=== PATIENT | female | born 1990 | race Caucasian/White ===

== ENCOUNTER 2017-07-07 10:01 | Emergency (ER) | payer OTHER ==
[2017-07-07 12:43] VITALS: BP 142/90
--- NOTE | 2017-07-07 15:27 | UC ---
Vernon Sinha Angela, scribed for Nette Miller DO on 07/07/17 at 1211 . General HPI - HPI Summary HPI Summary: This pt is a 26 y/o female presenting to [facility] c/o cough, rhinorrhea, sore throat , sinus pressure x4 days. Pt reports a productive cough with green sputum, non- bloody. She states she normally uses an inhaler when she is sick. Pt additionally c/o chest pain only with cough, ear feeling full. Pt denies nausea , vomiting, diarrhea, fever, chills, dysuria, urinary symptoms. She notes 1.5 months ago she had bronchitis and pneumonia, she was given antibiotics. Pt was not able to finish her antibiotics as it caused her joint pain. Pt also reports that she has left knee pain s/p fall down the stairs 1 month ago. She notes she fell down 4 steps down and believes her knee twisted. Pt went to [facility] and was told to go to physical therapy but has not been able to go yet. She states she didn't have any XRs done. Pt notes her left knee has become more sore since then. She feels like she has to "crack it and then it pops." Her pain is aggravated when bending her knee, specially while going up and down the stairs. She reports it is more painful to sit still. Pt has felt her leg stable and not giving out. She is able to ambulate with this left leg. - History of Current Complaint Chief Complaint: UCRespiratory Stated Complaint: CHEST CONGESTION/COUGH/L KNEE PAIN Time Seen by Provider: 07/07/17 11:51 Hx Obtained From: Patient Hx Last Menstrual Period: 05/29 Onset/Duration: Lasting Days, Still Present Timing: Constant Pain Location at: left knee Associated Signs & Symptoms: Positive: Cough, Chest Pain - only with cough, SOB , Other - POS: stuffy nose, rhinorrhea, sore throat, sinus pressure, ear fullness, left knee pain. NEG: urinary symptoms. Negative: Abdominal Pain, Diarrhea, Dysuria, Fever, Nausea, Vomiting - Allergy/Home Medications Allergies/Adverse Reactions: Allergies Allergy/AdvReac Type Severity Reaction Status Date / Time No Known Allergies Allergy Verified 07/07/17 10:12 PMH/Surg Hx/FS Hx/Imm Hx Endocrine History: Hypothyroidism Cardiovascular History: Hypertension - Surgical History Surgical History: Yes Surgery Procedure, Year, and Place: right wrist. appendectomy. gall bladder - Family History Known Family History: Positive: Hypertension, Diabetes - Social History Alcohol Use: None Substance Use Type: None Smoking Status (MU): Never Smoked Tobacco Have You Smoked in the Last Year: No - Immunization History Most Recent Influenza Vaccination: 2014 Most Recent Tetanus Shot: 06/03/14 Most Recent Pneumonia Vaccination: na Review of Systems Constitutional: Negative Skin: Negative Eyes: Negative ENT: Sore Throat, Nasal Discharge, Sinus Congestion, Other - stuffy nose, sinus pressure, ear fullness Respiratory: Cough Cardiovascular: Chest Pain - only with cough Gastrointestinal: Negative Genitourinary: Negative Motor: Decreased ROM - at left knee Neurovascular: Negative Musculoskeletal: Other: - left knee pain Neurological: Negative Psychological: Negative All Other Systems Reviewed And Are Negative: Yes Physical Exam Triage Information Reviewed: Yes Appearance: Well-Appearing, No Pain Distress, Well-Nourished Vital Signs: Initial Vital Signs Temp 98.2 F 07/07/17 10:14 Pulse 88 07/07/17 10:14 Resp 22 07/07/17 10:14 BP 142/105 07/07/17 10:14 Pulse Ox 99 07/07/17 10:14 Vital Signs Reviewed: Yes Eyes: Positive: Conjunctiva Clear. Negative: Discharge ENT: Positive: Hearing grossly normal, TMs normal. Negative: Tonsillar swelling , Tonsillar exudate, Trismus, Muffled voice, Hoarse voice Neck exam: Normal Neck: Positive: Supple Respiratory: Positive: Lungs clear, Normal breath sounds, No respiratory distress, No accessory muscle use, Other: - lung sounds are symmetrical. Negative: Wheezing Cardiovascular: Positive: RRR, No Murmur Musculoskeletal: Positive: Other: - LLE: mild swelling on the lateral joint line of the left knee. Inspection otherwise normal. No redness, swelling, calor , or bruising. Tenderness to palpation over the lateral joint line. Less tender to palpation over the medial patellar border. Pain with lateral stress. Positive Ana test. No laxity notes of the ACL or PCL. Neurological: Positive: Alert, Muscle Tone Normal Psychological Exam: Normal Psychological: Positive: Age Appropriate Behavior Skin Exam: Other - warm, dry Skin: Positive: Other - Acanthosis nigricans noted in the pt's neck. Course/Dx - Course Course Of Treatment: Medications reviewed this visit. High blood pressure noted with diagnosis of HTN. Pt was given a referral to orthopedics to further evaluate her injury. - Differential Dx - Multi-Symptom Provider Diagnoses: Sinusitis. Bronchospasm. Meniscus tear. Elevated blood pressure with diagnosis of HTN Discharge - Discharge Plan Condition: Stable Disposition: HOME Prescriptions: Albuterol HFA INHALER* [Ventolin HFA Inhaler*] 2 puff INH Q4H PRN #1 mdi PRN Reason: Sob/Wheezing Amoxicillin/Clavulanate TAB* [Augmentin TAB 875*] 875 mg PO BID #20 tab Benzonatate CAP* [Tessalon 100 MG CAP*] 100 mg PO TID PRN #30 cap PRN Reason: Cough guaiFENesin ER TAB [Mucinex*] 600 mg PO BID PRN #1 box PRN Reason: Cough Guaifenesin-Codeine [Guaiatussin AC] 5 - 10 ml PO BEDTIME PRN #100 ml MDD 10ML PRN Reason: Cough Patient Education Materials: Sinusitis (ED), Bronchospasm (ED), Meniscus Tear ( ED) Referrals: Fabián Melton MD [Primary Care Provider] - 2 Weeks Additional Instructions: TRY USING THE NETTI POT IN THE MORNINGS DISCUSSED. ALWAYS USE CLEAN WATER. POSTURE IS AN IMPORTANT FACTOR IN SINUS DRAINAGE. MOVE YOUR NECK and BREATHE. 1. When you find yourself feeling congested, check your posture. 2. Close your mouth. Try the head lift and breathe. 3. Then move your neck and breathe. INHALED BRONCHODILATORS: You have received a prescription for an inhaled bronchodilator -- a medication which stimulates the airways in the lung to dilate. This improves the flow of air in asthma, bronchitis, and emphysema. These medicines have some similarity to adrenaline, and can cause similar side effects: shakiness, racing heart, and a sense of nervousness. These side effects decrease with time. Contact your doctor if these side effects are severe. Do not over-use the medicine. Too-frequent use of the inhaler may make it ineffective. Call your doctor if the inhaler is not controlling your symptoms at the prescribed doses. COUGH-SUPPRESSANT & EXPECTORANT MEDICATION: You are to use a cough medication as needed for relief of symptoms. This medicine is a combination of an expectorant (to make the mucous thinner and more easily "coughed up") and a cough suppressant (to reduce the frequency of coughing). The cough-suppressant medicine is related to narcotics. You may experience mild nausea and sleepiness. Some patients who are very sensitive to narcotics may have stomach pain from this medicine. Taking the medicine with food reduces these side effects. Do not drive or work with machinery until you know how this medicine affects you. The expectorant should have no side effects. Iodine-containing expectorants (such as organidin) should not be taken by persons with active thyroid disease unless approved by your doctor. Call the doctor if you develop shortness of breath, hives, rash, itching, lightheadedness, or severe nausea and vomiting. EXPECTORANT MEDICATION: WE SENT IN A SCRIPT FOR MUCINEX SO THAT IT IS EASIER FOR YOU TO PICK THE RIGHT MED AT THE PHARMACY. HOWEVER, YOU CAN ALSO GO TO THE [employer] STORE AND BUY PLAIN GUAIFENESIN WITHOU BINDERS OR FILLERS. An expectorant medicine has been prescribed. This type of drug makes mucous thinner, helping the sinuses, nose, and bronchial tubes to remain free of pus and mucous. Expectorants make a cough less severe and more comfortable, and help infected sinuses drain. In general, antihistamines defeat the purpose of the expectorant by making mucous thicker. They should be avoided unless specifically recommended by your physician. TESSALON PERLES: You have received a prescription for Tessalon Perles (benzonatate). This is a non-narcotic medicine for relief of cough. It usually works in about 15- 20 minutes and lasts around four hours. Tessalon Perles should be swallowed. They should not be chewed or dissolved in the mouth (this can produce temporary numbing of the mouth and choking can occur). If you develop any adverse effects such as wheezing, shortness of breath, hives, rash, itching, or lightheadedness, please return at once. ANTIBIOTICS ARE NOT CURRENTLY INDICATED FOR YOUR CONDITION. HOWEVER, IF YOUR SYMPTOMS WORSEN OR PERSIST FOR OVER THE NEXT 3-5 DAYS, YOU CAN TAKE THE FOLLOWING MEDICATION: AUGMENTIN: Augmentin is a mixture of amoxicillin and clavulanate. Amoxicillin is a member of the penicillin family. It covers the germs likely to cause ear, bronchial, and urinary infections better than plain penicillin. The addition of clavulanate allows it to cover staph infections of the skin, as well as resistant cases of ear and sinus infections. Your physician has chosen Augmentin for you because of the special nature of your situation. Augmentin is best taken with meals. Nausea after taking the medication is rare, but can occur. Diarrhea can occur, particularly in small children. Vaginal yeast infections, and oral thrush in infants are also common. Contact your physician if these problems occur. Allergy to penicillins is common. If you have had an allergic reaction to any drug of the penicillin family, you should never take any other penicillin. Notify your doctor at once if you develop hives, shortness of breath, swelling, or faintness. ANYTIME YOU TAKE AN ANTIBIOTIC, IT IS IMPORTANT TO REPLENISH THE BODY'S SUPPLY OF "GOOD BACTERIA." YOU CAN GET GOOD BACTERIA FROM HIGH QUALITY CULTURED FOODS SUCH LOCAL YOGURT, SOUR KRAUT, SHELBY LAVELL, NATURALLY FERMENTED PICKLES AND PROBIOTIC DRINKS. YOU CAN ALSO GET GOOD BACTERIA FROM A PROBIOTIC SUPPLEMENT. Your history and exam is suspicous for possible internal derrangement of the knee. So, you will need follow up with an orthopedic provider to further evaluate your injury. WE HAVE GIVEN YOU A REFERRAL TO ORTHOPEDIST. TRY TO FIND A PHYSICAL THERAPIST WHO CAN SEE YOU AFTER YOU FINISH WORK - CALL AROUND. YOU WOULD LIKELY BENEFIT FROM OSTEOPATHIC MANIPULATION. WE RECOMMEND THAT YOU FIND AN OSTEOPATHIC PHYSICIAN IN YOUR AREA WHO DOES LYMPHATIC, MYOFACIAL AND VISCERAL WORK ALSO, YOUR PHYSICAL EXAM REVEALED ACANTHOSIS NIGRICANS. THIS CAN BE A SIGN OF INSULIN RESISTANCE. PLEASE FOLLOW UP ON THIS WELL YOUR BLOOD PRESSURE WITH YOUR PCP. Your blood pressure was elevated at this visit, 142/105. Please follow up with your primary care provider. The documentation as recorded by the Vernon collins Angela accurately reflects the service I personally performed and the decisions made by me, Nette Miller DO.
--- NOTE | 2017-07-07 15:30 | UC ---
Progress - Progress Note Progress Note: forgot to give pt ortho referral. called pt and gave her dr navas's number
== END 2017-07-07 12:45 | disposition home or self-care (01) ==
LOC: UCEAST 10:01
DX: J32.9 Chronic sinusitis, unspecified (principal); J98.01 Acute bronchospasm; S83.207A Unspecified tear of unspecified meniscus, current injury, left knee, initial encounter; W10.9XXA Fall (on) (from) unspecified stairs and steps, initial encounter; Y93.9 Activity, unspecified; Y92.9 Unspecified place or not applicable; Y99.9 Unspecified external cause status; I10 Essential (primary) hypertension
CPT/HCPCS: 99212; G0463

== ENCOUNTER 2017-12-16 20:34 | Emergency (ER) | payer MEDICAID, OTHER ==
[2017-12-16 21:37] VITALS: BP 146/102
--- NOTE | 2017-12-16 22:05 | UC ---
Rafael Sinha Gabriel scribed for Enid Perez MD on 12/16/17 at 2145 . General HPI - HPI Summary HPI Summary: This patient is a 27 year old F presenting to [facility] with a chief complaint of bilateral LE edema that began on 12-13-17. The patient rates the pain 7/10 in severity. Patient denies SOB, urinary symptoms, and increased sodium intake. Pt has no additional complaints at this time. The patient states the last time this happened she was and that there is a chance she is now. LNMP was over a month ago but she is unsure of the last date. She states she has PCOS and cannot get . She has not taken her PCOS medication in a long time. She also has a history of hypthyroidism, and uses her levothyroxine irregularly. - History of Current Complaint Chief Complaint: UCLowerExtremity Stated Complaint: SWOLLEN FEET Time Seen by Provider: 12/16/17 20:54 Hx Obtained From: Patient Hx Last Menstrual Period: unknown d/t pcos Onset/Duration: Still Present Onset Severity: Moderate Current Severity: Moderate Pain Intensity: 7 Associated Signs & Symptoms: Positive: Other - LE edema - Allergy/Home Medications Allergies/Adverse Reactions: Allergies Allergy/AdvReac Type Severity Reaction Status Date / Time No Known Allergies Allergy Verified 12/16/17 20:48 Home Medications: Home Medications metFORMIN* [Glucophage 500 MG TAB *] 500 mg PO BID 12/16/17 [History Confirmed 12/16/17] PMH/Surg Hx/FS Hx/Imm Hx Previously Healthy: No - obese, hx of pre-eclamptic toxemia Endocrine History: Hypothyroidism GI/ History: Other Other GI/ History: PCOS Psychological History: Anxiety, Depression - Surgical History Surgical History: Yes Surgery Procedure, Year, and Place: right wrist. appendectomy. gall bladder - Family History Known Family History: Positive: Cardiac Disease, Hypertension, Diabetes - Social History Lives: With Family Alcohol Use: None Substance Use Type: None Smoking Status (MU): Never Smoked Tobacco Have You Smoked in the Last Year: No - Immunization History Most Recent Influenza Vaccination: 2014 Most Recent Tetanus Shot: 06/03/14 Most Recent Pneumonia Vaccination: na Review of Systems Constitutional: Negative Skin: Negative Eyes: Negative ENT: Negative Respiratory: Negative - SOB Cardiovascular: Negative Gastrointestinal: Negative Genitourinary: Negative Motor: Negative Neurovascular: Negative Musculoskeletal: Edema - bilateral LE Neurological: Negative Psychological: Negative Is Patient Immunocompromised?: No All Other Systems Reviewed And Are Negative: Yes Physical Exam Triage Information Reviewed: Yes Appearance: Well-Appearing, Obese Vital Signs: Initial Vital Signs Temp 99.7 F 12/16/17 20:43 Pulse 103 12/16/17 20:43 Resp 18 12/16/17 20:43 BP 183/120 12/16/17 20:43 Pulse Ox 98 12/16/17 20:43 Eye Exam: Normal ENT: Positive: Pharynx normal Neck exam: Normal Respiratory: Positive: Lungs clear, Normal breath sounds Cardiovascular: Positive: RRR, No Murmur Musculoskeletal: Positive: Edema @ - mild pitting edema feet and ankles. Neurological Exam: Normal Psychological Exam: Normal Diagnostics - Laboratory Diagnostic Studies Completed/Ordered: labs drawn to assess TSH and chemistries, given irregular use of medications. Course/Dx - Course Course Of Treatment: Patient is requesting to have her vitamin D levels checked. I informed her there is a significant change it will not be covered by her insurance but she would still like it done. BP noted and advised to follow up with PCP. - Differential Dx - Multi-Symptom Provider Diagnoses: bilateral edema, most likely dependency edema. Elevated blood pressure without a previous diagnoses of hypertension Discharge - Sign-Out/Discharge Documenting (check all that apply): Discharge/Admit/Transfer - Discharge Plan Condition: Stable Disposition: HOME Patient Education Materials: Leg Edema (ED) Referrals: Fabián Melton MD [Primary Care Provider] - Additional Instructions: Lab work will be reported tomorrow. I suggest that you send a copy to Dr. Melton. Your urine test is negative. Given the irregular use of levothyroxine, the most likely potential causes of your leg swelling are either low thyroid function or dependency edema. Your blood pressure was elevated during today's visit, 146/102. Please follow up with your primary care provider in 1-2 weeks. - Billing Disposition and Condition Condition: STABLE Disposition: HOME The documentation as recorded by the Rafael collins Gabriel accurately reflects the service I personally performed and the decisions made by me, Enid Perez MD.
[2017-12-17 11:01] LABS: ABS Basophils 0.1 10^3/ul (0-0.2); ABS Eosinophils 0.2 10^3/ul (0-0.6); ABS Monocytes 0.6 10^3/ul (0-0.8); ABS Nucleated RBC 0 10^3/ul; Eosinophil % 1.7 % (0-6); Hematocrit 44 % (35-47); Hemoglobin 14.4 g/dl (12.0-16.0); Lymphocyte % 30.7 % (25-47); Mean Corpuscular HGB Conc 33 g/dl (31-36); Mean Corpuscular Hemoglobin 28 pg (27-31); Mean Corpuscular Volume 84 fL (80-97); Mean Platelet Volume 8.8 um3 (7.4-10.4); Nucleated Red Blood Cells % 0.2; Platelet Count 252 10^3/ul (150-450); Red Blood Count 5.22 10^6/ul (4.0-5.4); Red Cell Distribution Width 15 % (10.5-15); White Blood Count 9.9 10^3/ul (3.5-10.8)
--- NOTE | 2017-12-17 17:02 | UC ---
- Progress Note Progress Note: 12/17/2016 CMP pending, TSH: 6.66 elevated Pt w/ PMHX of Hypothyroidism and no compliant w/ her Synthroid medication. CBC: WNL Please await final report and notify Pt of lab results. Pt need F/u w/ her PCP for further management on her Thyroid levels Sharla Rossi PA-C Discharge - Sign-Out/Discharge Documenting (check all that apply): Discharge/Admit/Transfer - D/C home - Discharge Plan Condition: Stable Disposition: HOME Patient Education Materials: Leg Edema (ED) Referrals: Fabián Melton MD [Primary Care Provider] - Additional Instructions: Lab work will be reported tomorrow. I suggest that you send a copy to Dr. Melton. Your urine test is negative. Given the irregular use of levothyroxine, the most likely potential causes of your leg swelling are either low thyroid function or dependency edema. Your blood pressure was elevated during today's visit, 146/102. Please follow up with your primary care provider in 1-2 weeks. - Billing Disposition and Condition Condition: STABLE Disposition: HOME
[2017-12-17 17:30] LABS: EGFR Non-African American 94.9 (>60)
--- NOTE | 2017-12-17 18:01 | UC ---
- Progress Note Progress Note: 12/17/2017 CMP: WNL No change Sharla Alcantara PA-C Discharge - Sign-Out/Discharge Documenting (check all that apply): Discharge/Admit/Transfer - D/C home - Discharge Plan Condition: Stable Disposition: HOME Patient Education Materials: Leg Edema (ED) Referrals: Fabián Melton MD [Primary Care Provider] - Additional Instructions: Lab work will be reported tomorrow. I suggest that you send a copy to Dr. Melton. Your urine test is negative. Given the irregular use of levothyroxine, the most likely potential causes of your leg swelling are either low thyroid function or dependency edema. Your blood pressure was elevated during today's visit, 146/102. Please follow up with your primary care provider in 1-2 weeks. - Billing Disposition and Condition Condition: STABLE Disposition: HOME
== END 2017-12-16 22:15 | disposition home or self-care (01) ==
LOC: UCEAST 20:34
DX: R60.0 Localized edema (principal); R03.0 Elevated blood-pressure reading, without diagnosis of hypertension; Z32.02 Encounter for pregnancy test, result negative; E03.9 Hypothyroidism, unspecified; E28.2 Polycystic ovarian syndrome; F41.9 Anxiety disorder, unspecified; F32.9 Major depressive disorder, single episode, unspecified
CPT/HCPCS: 36415; 80053; 82306; 84443; 84702; 85025; 99211; G0463

== ENCOUNTER 2018-01-05 13:41 | Emergency (ER) | payer MEDICAID, OTHER ==
[2018-01-05 14:39] LABS: ABS Basophils 0.1 10^3/ul (0-0.2); ABS Eosinophils 0.1 10^3/ul (0-0.6); ABS Lymphocytes 2.6 10^3/ul (1.0-4.8); ABS Monocytes 0.7 10^3/ul (0-0.8); ABS Neutrophils 7.7 10^3/ul (1.5-7.7); ABS Nucleated RBC 0 10^3/ul; Eosinophil % 1.3 % (0-6); Hematocrit 44 % (35-47); Hemoglobin 14.6 g/dl (12.0-16.0); Lymphocyte % 23.4 % (25-47); Mean Corpuscular HGB Conc 33 g/dl (31-36); Mean Corpuscular Hemoglobin 28 pg (27-31); Mean Corpuscular Volume 83 fL (80-97); Mean Platelet Volume 7.2 um3 (7.4-10.4); Nucleated Red Blood Cells % 0; Platelet Count 267 10^3/ul (150-450); Red Cell Distribution Width 15 % (10.5-15); White Blood Count 11.3 10^3/ul (3.5-10.8)
--- NOTE | 2018-01-05 15:59 | RAD ---
HISTORY: Right lower extremity swelling and pain COMPARISONS: None relevant TECHNIQUE: Multiple transverse and longitudinal ultrasound images were obtained of the right lower extremity from the level of the common femoral vein inferiorly through to the infrapopliteal veins using grayscale, color Doppler, and spectral Doppler imaging with and without compression and with augmentation. Comparison images were obtained of the contralateral common femoral vein. FINDINGS: VEINS: The venous system of the right lower extremity is compressible throughout its course, with normal flow on color Doppler imaging and normal response to augmentation on spectral Doppler imaging. SOFT TISSUES: Unremarkable. OTHER FINDINGS: None. IMPRESSION: NO RIGHT LOWER EXTREMITY DEEP VEIN THROMBOSIS
[2018-01-05 16:20] LABS: EGFR Non-African American 94.9 (>60)
[2018-01-05] MEDS ORDERED: Metoprolol Tartrate TAB* 50 mg PO ONE (16:55)
--- NOTE | 2018-01-05 17:00 | ED ---
Chandler Sinha Natalie, scribed for Leighton Murguia MD on 01/05/18 at 1442 . Lower Extremity - HPI Summary HPI Summary: The patient is a 27 y/o F presenting to the ED c/o bilateral swelling of legs and feet starting November with gradual worsening with right knee pain and right foot cramping onset 4 days ago. The swelling and pain is more prominent in the right leg, and her symptoms worsen at night. The pain is rated 6/10 in severity. She denies SOB. She has been drinking a gallon of water a day. The patient has been taking Triamterine for past similar episodes. She does not take oral contraceptives, and she does not smoke. - History of Current Complaint Chief Complaint: EDSoftTissueLowExtr Stated Complaint: RT LEG PAIN & SWELLING Time Seen by Provider: 01/05/18 14:09 Hx Obtained From: Patient Hx Last Menstrual Period: unknown d/t pcos Mechanism Of Injury: Unknown Onset of Pain: Days Onset/Duration: Days Severity Initially: Moderate Severity Currently: Moderate Pain Intensity: 6 Pain Scale Used: 0-10 Numeric Timing: Constant, Lasting Days Location: Other - bilateral legs Associated Signs And Symptoms: Positive: Swelling - bilateral feet and legs, Other Aggravating Factor(s): Nothing Alleviating Factor(s): Nothing - Allergies/Home Medications Allergies/Adverse Reactions: Allergies Allergy/AdvReac Type Severity Reaction Status Date / Time No Known Allergies Allergy Verified 01/05/18 13:51 Home Medications: Home Medications Levothyroxine TAB* [Synthroid TAB*] 175 mcg PO QAM 01/05/18 [History Confirmed 01/05/18] Triamterene/HCTZ 37.5-25 MG* [Dyazide CAP*] 1 cap PO QAM 01/05/18 [History Confirmed 01/05/18] PMH/Surg Hx/FS Hx/Imm Hx Endocrine/Hematology History: Reports: Hx Thyroid Disease - hypo Denies: Hx Diabetes Cardiovascular History: Denies: Hx Congestive Heart Failure, Hx Hypertension, Hx Pacemaker/ICD, Other Cardiovascular Problems/Disorders Respiratory History: Denies: Hx Asthma, Hx Chronic Obstructive Pulmonary Disease (COPD), Other Respiratory Problems/Disorders GI History: Denies: Hx Ulcer, Other GI Disorders History: Denies: Other Problems/Disorders Musculoskeletal History: Denies: Other Musculoskeletal History Sensory History: Denies: Hx Contacts or Glasses, Hx Hearing Aid Opthamlomology History: Denies: Hx Contacts or Glasses Neurological History: Reports: Hx Migraine - 2 MIGRAINES A WEEK Denies: Other Neuro Impairments/Disorders Psychiatric History: Reports: Hx Depression - Surgical History Surgery Procedure, Year, and Place: right wrist. appendectomy. gall bladder Hx Anesthesia Reactions: No - Immunization History Date of Tetanus Vaccine: UNK Date of Influenza Vaccine: UNK Infectious Disease History: No Infectious Disease History: Denies: Hx Clostridium Difficile, Hx Hepatitis, Hx Human Immunodeficiency Virus (HIV), Hx of Known/Suspected MRSA, Hx Shingles, Hx Tuberculosis, Hx Known/ Suspected VRE, Hx Known/Suspected VRSA, History Other Infectious Disease, Traveled Outside the [place] in Last 30 Days - Family History Known Family History: Positive: Cardiac Disease, Hypertension, Diabetes - Social History Alcohol Use: None Substance Use Type: Reports: None Smoking Status (MU): Never Smoked Tobacco Have You Smoked in the Last Year: No Review of Systems Negative: Shortness Of Breath Positive: Edema - in bilateral legs and feet, Other - right knee pain, right foot crampig All Other Systems Reviewed And Are Negative: Yes Physical Exam - Summary Physical Exam Summary: VITAL SIGNS: Reviewed. GENERAL: Patient is a well-developed and nourished female who is lying comfortable in the stretcher. Patient is not in any acute respiratory distress. HEAD AND FACE: No signs of trauma. No ecchymosis, hematomas or skull depressions. No sinus tenderness. EYES: PERRLA, EOMI x 2, No injected conjunctiva, no nystagmus. EARS: Hearing grossly intact. Ear canals and tympanic membranes are within normal limits. MOUTH: Oropharynx within normal limits. NECK: Supple, trachea is midline, no adenopathy, no JVD, no carotid bruit, no c- spine tenderness, neck with full ROM. CHEST: Symmetric, no tenderness at palpation LUNGS: Clear to auscultation bilaterally. No wheezing or crackles. No shortness of breath. CVS: Regular rate and rhythm, S1 and S2 present, no murmurs or gallops appreciated. ABDOMEN: Soft, non-tender. No signs of distention. No rebound no guarding, and no masses palpated. Bowel sounds are normal. EXTREMITIES: FROM in all major joints, no cyanosis or clubbing. Swelling in bilateral legs, more in the right leg than left. NEURO: Alert and oriented x 3. No acute neurological deficits. Speech is normal and follows commands. SKIN: Dry and warm Triage Information Reviewed: Yes Vital Signs On Initial Exam: Initial Vitals Temp Pulse Resp BP Pulse Ox 98.5 F 92 16 167/115 96 01/05/18 13:51 01/05/18 13:51 01/05/18 13:51 01/05/18 13:51 01/05/18 13:51 Vital Signs Reviewed: Yes Diagnostics - Vital Signs Vital Signs Temp Pulse Resp BP Pulse Ox 01/05/18 13:51 98.5 F 92 16 167/115 96 - Laboratory Lab Results: Lab Results 01/05/18 01/05/18 Range/Units 14:30 14:30 WBC 11.3 H (3.5-10.8) 10^3/ul RBC 5.30 (4.0-5.4) 10^6/ul Hgb 14.6 (12.0-16.0) g/dl Hct 44 (35-47) % MCV 83 (80-97) fL MCH 28 (27-31) pg MCHC 33 (31-36) g/dl RDW 15 (10.5-15) % Plt Count 267 (150-450) 10^3/ul MPV 7.2 L (7.4-10.4) um3 Neut % (Auto) 68.0 (38-83) % Lymph % (Auto) 23.4 L (25-47) % Pine % (Auto) 6.4 (0-7) % Eos % (Auto) 1.3 (0-6) % Baso % (Auto) 0.9 (0-2) % Absolute Neuts (auto) 7.7 (1.5-7.7) 10^3/ul Absolute Lymphs (auto) 2.6 (1.0-4.8) 10^3/ul Absolute Monos (auto) 0.7 (0-0.8) 10^3/ul Absolute Eos (auto) 0.1 (0-0.6) 10^3/ul Absolute Basos (auto) 0.1 (0-0.2) 10^3/ul Absolute Nucleated RBC 0 10^3/ul Nucleated RBC % 0 C-Reactive Protein 5.74 H (< 5.00) mg/L Result Diagrams: 01/05/18 14:30 01/05/18 14:30 Lab Statement: Any lab studies that have been ordered have been reviewed, and results considered in the medical decision making process. - Ultrasound No standard instances Ultrasound Interpretation: No Acute Changes - Right Lower Extremity Venous Doppler: No right lower extremity deep vein thrombosis. ED physician has reviewed this report. Ultrasound Interpretation Completed By: Radiologist Lower Extremity Course/Dx - Course Assessment/Plan: This patient is a 27-year-old female who presents to the emergency department with chief complaint of bilateral lower extremity swelling worse the right than the left. She denies any shortness of breath or chest pain. She is not taking any oral contraceptive pills and she does not smoke. She reports that shes been having the swelling for a couple weeks and she is taking diuretics. Today she went to see her primary care physician and is sent to the urgent to rule out DVT in the right lower extremity. Test results without significant abnormality except for CRP of 5.74. Right lower extremity ultrasound impression: No the right lower extremity DVT. The patients blood pressure significantly increase. I offered the patient to give Lopressor for her uncontrolled hypertension. The patient reports that she usually has hives and that blood pressure and she does want to take any other medications in the IV. I offered the patient to give Lopressor by mouth and she accepted. She signed AMA. I extensively discussed with the patient the benefits and risk of leaving AMA. I also discussed the alternatives to leaving AMA, however, the patient still insist to leave the hospital AMA.. The primary nurse and the charge nurse also strongly recommended that the patient should not leave AMA. Patient understands the risk of leaving AMA, which includes but is not restricted to . Patient is Alert and oriented times three and patient verbalizes understanding. Patient has full capacity and is cognitively intact. Patient signed the AMA form. Patient was also advised to return to ED if he changes his mind or if the symptoms worsen or other symptoms appear. Patient understands and agrees. I discussed all the findings and test results with the patient. Patient was instructed to return to the emergency room immediately if any of the symptoms return or worsens. Plan of care was discussed with the patient and understands and agrees. All questions were answered at patient satisfaction. There were no further complaints or concerns. Lung exam before discharge: CTA B/L. Good air exchange. No wheezing or crackles heard. CVS: S1 and S2 present. No murmurs appreciated. Patient is alert and oriented x 3. Patient is hemodynamically stable. Patient will be discharged home with follow up PCP in the next 2-3 days - Diagnoses Provider Diagnoses: Swelling of both lower extremities, Uncontrolled hypertension Discharge - Sign-Out/Discharge Documenting (check all that apply): Discharge/Admit/Transfer - Discharge Plan Condition: Stable Disposition: HOME Patient Education Materials: Leg Edema (ED) Referrals: Fabián Melton MD [Primary Care Provider] - 1 Week Additional Instructions: FOLLOW UP WITH YOUR PRIMARY CARE PROVIDER WITHIN ONE WEEK FOR HIGH BLOOD PRESSURE NOTED TODAY. RETURN TO THE ED FOR ANY WORSENING OR NEW SYMPTOMS. - Billing Disposition and Condition Condition: STABLE Disposition: HOME The documentation as recorded by the Chandler collins Natalie accurately reflects the service I personally performed and the decisions made by , Leighton Murguia MD.
[2018-01-05] MEDS ORDERED: Ibuprofen TAB* 600 MG PO ONE (17:16)
[2018-01-05 17:22] VITALS: BP 00/0
== END 2018-01-05 17:22 | disposition left against medical advice (07) ==
LOC: ED 13:41
DX: R22.43 Localized swelling, mass and lump, lower limb, bilateral (principal); I10 Essential (primary) hypertension; Z53.21 Procedure and treatment not carried out due to patient leaving prior to being seen by health care provider
CPT/HCPCS: 36415; 80053; 85025; 86140; 99283; A9270-GY

== ENCOUNTER 2018-05-11 11:03 | Emergency (ER) | payer OTHER ==
--- NOTE | 2018-05-11 12:10 | UC ---
Ear Complaint HPI - HPI Summary HPI Summary: 27 year old female presents with 2 week history of progressively worsening left jaw pain. States she was evaluated at [facility] 1 week ago and started on Amoxicillin 875 mg BID for a dental infection of her left 2nd molar. Reports pain has progressively worsened over the past week and now has headache and pain radiates into left ear. She has noticed some yellow discharge from the left ear. Denies fever, chills, nasal congestion or drainage, sinus pain or pressure, sore throat, dysphagia, trismus, chest pain, shortness of breath, or cough. - History of Current Complaint Chief Complaint: UCEar Stated Complaint: EAR PAIN HEADACHE Time Seen by Provider: 05/11/18 11:58 Hx Obtained From: Patient Hx Last Menstrual Period: unknown Onset/Duration: Gradual Onset, Lasting Weeks - 2 Severity Currently: Severe Pain Intensity: 10 Aggravating Factors: Nothing Alleviating Factors: Nothing Associated Signs/Symptoms: Positive: Discharge - Allergies/Home Medications Allergies/Adverse Reactions: Allergies Allergy/AdvReac Type Severity Reaction Status Date / Time No Known Allergies Allergy Verified 01/05/18 13:51 Home Medications: Home Medications Fluoxetine HCl [Prozac] 10 mg PO QPM 05/11/18 [History Confirmed 05/11/18] Losartan TAB* [Cozaar TAB*] 100 mg PO DAILY 05/11/18 [History Confirmed 05/11/18 ] Metformin HCl [Fortamet] 500 mg PO BID 05/11/18 [History Confirmed 05/11/18] Trazodone HCl 100 mg PO DAILY 05/11/18 [History Confirmed 05/11/18] buPROPion HCl [Wellbutrin Sr] 150 mg PO DAILY 05/11/18 [History Confirmed ] PMH/Surg Hx/FS Hx/Imm Hx Endocrine History: Thyroid Disease Other Endocrine History: PCOS Cardiovascular History: Hypertension Psychological History: Depression - Surgical History Surgical History: Yes Surgery Procedure, Year, and Place: right wrist. appendectomy. gall bladder. - Family History Known Family History: Positive: Cardiac Disease, Hypertension, Diabetes - Social History Occupation: Works From/At Home Lives: With Family Alcohol Use: Occasionally Substance Use Type: None Smoking Status (MU): Never Smoked Tobacco Have You Smoked in the Last Year: No - Immunization History Most Recent Influenza Vaccination: 2014 Most Recent Tetanus Shot: 06/03/14 Most Recent Pneumonia Vaccination: na Review of Systems Constitutional: Negative Skin: Negative Eyes: Negative ENT: Dental Pain, Ear Ache Respiratory: Negative Cardiovascular: Negative Gastrointestinal: Negative Is Patient Immunocompromised?: No All Other Systems Reviewed And Are Negative: Yes Physical Exam Triage Information Reviewed: Yes Appearance: Pain Distress - Appears mildly uncomfortable, Obese Vital Signs: Initial Vital Signs Temp 97.7 F 05/11/18 11:52 Pulse 92 05/11/18 11:52 Resp 18 05/11/18 11:52 BP 155/100 05/11/18 11:52 Pulse Ox 97 05/11/18 11:52 Vital Signs Reviewed: Yes Eyes: Positive: Conjunctiva Clear. Negative: Discharge ENT: Positive: TMs normal, Uvula midline. Negative: Pharyngeal erythema, Nasal congestion, Nasal drainage, Tonsillar swelling, Tonsillar exudate, Trismus, Muffled voice, Hoarse voice, Sinus tenderness Dental: Positive: Gross Decay/Caries @ - 2nd left upper molar with mild gingival erythema. No induration or fluctuance noted. Neck: Positive: Supple, Nontender, No Lymphadenopathy Respiratory: Positive: Lungs clear, Normal breath sounds, No respiratory distress Cardiovascular: Positive: RRR, No Murmur Neurological: Positive: Alert Skin Exam: Normal Ear Complaint Course/Dx - Course Course Of Treatment: 27 year old female with 2 week history of dental/jaw pain. Was seen at [facility] 1 week ago and started on amoxicllin 875 mg BID. She states pain has worsened and is now radiating to left ear. Afebrile. No trismus. Exam revealed some mild TMJ tenderness, significant dental decay of 2nd left upper molar with mild gingival erythema. Left ear normal and no sinus tenderness. Discussed case with Dr. Knapp. Will change antibiotic to Augmentin to cover for Beta lactamase resistence, have patient use an appropriate dose of antiinflammatory routinely with acetaminophen for breakthrough pain. Warning symptoms requiring follow up in the emergency room were discusssed. She has dental appointment scheduled in 2 days and is to keep this appointment. Patient verbalizes understanding and agrees with POC. - Differential Dx/Diagnosis Differential Diagnosis/HQI/PQRI: Mastoiditis, Otitis Media, Other - Deep facial infection Provider Diagnoses: dental pain Discharge - Sign-Out/Discharge Documenting (check all that apply): Patient Departure All imaging exams completed and their final reports reviewed: No Studies - Discharge Plan Condition: Stable Disposition: HOME Prescriptions: Acetaminophen [Tylophen] 1,000 mg PO Q6HR PRN #120 capsule PRN Reason: Pain Amoxicillin/Clavulanate TAB* [Augmentin TAB 875*] 875 mg PO BID #20 tab Naproxen [Naproxen 500 mg tab] 500 mg PO BID #30 tablet Patient Education Materials: Toothache (ED) Referrals: Fabián Melton MD [Primary Care Provider] - Additional Instructions: We gave you a shot of pain medication called ketoralac (Toradol) in the clinic. You should not take any further anti-inflammatory medications including ibuprofen (Advil, Motrin), naproxen (Aleve), or aspirin for at least 8 hours from receiving this medication. Stop taking the amoxicillin. Start Augmentin 875 mg 1 tab twice a day for 10 days. We gave you a dose in the clinic today. You may start the tonight at bedtime. Use naproxen 500 mg 1 tab every 12 hours for pain. You may take the first dose tonight after 8:00 pm. Be sure to take with food. Do not take any ibuprofen while taking this medication. You may use acetaminophen (Tylenol) 2 tabs every 6 hours as needed for breakthrough pain. Keep your appointment with the dentist on Sunday as scheduled. Seek immediate medical attention in the emergency room if you develop fever greater than 100.5 F, have worsening of pain, are unable to open your mouth, have difficulty swallowing, difficulty breathing, or any worsening of symptoms. - Billing Disposition and Condition Condition: STABLE Disposition: Home
[2018-05-11] MEDS ORDERED: Ketorolac INJ* 30 MG/ML 1 ML VIAL IM ONE (12:20)
[2018-05-11] MEDS ORDERED: Amoxicillin/Clavulanate TAB* 500 MG PO ONE (12:45)
[2018-05-11 13:03] VITALS: BP 150/110
== END 2018-05-11 13:06 | disposition home or self-care (01) ==
LOC: UCEAST 11:03
DX: K08.89 Other specified disorders of teeth and supporting structures (principal); I10 Essential (primary) hypertension; F32.9 Major depressive disorder, single episode, unspecified
CPT/HCPCS: 96372; 99212; A9270-GY; G0463; J1885

== ENCOUNTER 2018-05-12 07:46 | Emergency (ER) | payer OTHER ==
[2018-05-12 09:25] VITALS: BP 162/90
--- NOTE | 2018-05-12 12:46 | ED ---
Throat Pain/Nasal Congestion - HPI Summary HPI Summary: Patient is a 27-year-old female presenting to the ED with left upper dental pain over tooth #14. She states this is been present times approximately 2 weeks and has been on her second course of antibiotics. She has been taking ibuprofen and Tylenol without much relief. She has an appointment tomorrow afternoon for an extraction at [facility]. She denies any fevers, sweats, chills. Denies any worsening swelling. There is slight swelling surrounding the tooth without erythema or drainage. She's never had a dental abscess in the past. Morbid obesity, but denies any other significant PMH. - History of Current Complaint Chief Complaint: EDDentalPain Time Seen by Provider: 05/12/18 08:05 Hx Obtained From: Patient Onset/Duration: Sudden Onset Severity: Moderate Associated Signs And Symptoms: Negative: Dysphagia, FB Sensation - Epiglottits Risk Factors Epiglottis Risk Factors: Negative - Allergies/Home Medications Allergies/Adverse Reactions: Allergies Allergy/AdvReac Type Severity Reaction Status Date / Time No Known Allergies Allergy Verified 05/12/18 07:53 PMH/Surg Hx/FS Hx/Imm Hx Previously Healthy: Yes Endocrine/Hematology History: Reports: Hx Thyroid Disease - hypo Denies: Hx Diabetes Cardiovascular History: Reports: Hx Hypertension - on meds Denies: Hx Congestive Heart Failure, Hx Pacemaker/ICD, Other Cardiovascular Problems/Disorders Respiratory History: Denies: Hx Asthma, Hx Chronic Obstructive Pulmonary Disease (COPD), Other Respiratory Problems/Disorders GI History: Denies: Hx Ulcer, Other GI Disorders History: Denies: Other Problems/Disorders Musculoskeletal History: Denies: Other Musculoskeletal History Sensory History: Denies: Hx Contacts or Glasses, Hx Hearing Aid Opthamlomology History: Denies: Hx Contacts or Glasses Neurological History: Reports: Hx Migraine - 2 MIGRAINES A WEEK Denies: Other Neuro Impairments/Disorders Psychiatric History: Reports: Hx Depression - Surgical History Surgery Procedure, Year, and Place: right wrist. appendectomy. gall bladder. Hx Anesthesia Reactions: No - Immunization History Date of Tetanus Vaccine: UNK Date of Influenza Vaccine: UNK Hx Pertussis Vaccination: No Immunizations Up to Date: Yes Infectious Disease History: No Infectious Disease History: Denies: Hx Clostridium Difficile, Hx Hepatitis, Hx Human Immunodeficiency Virus (HIV), Hx of Known/Suspected MRSA, Hx Shingles, Hx Tuberculosis, Hx Known/ Suspected VRE, Hx Known/Suspected VRSA, History Other Infectious Disease, Traveled Outside the [place] in Last 30 Days - Family History Known Family History: Positive: Cardiac Disease, Hypertension, Diabetes - Social History Occupation: Employed Full-time Lives: With Family Alcohol Use: Occasionally Hx Substance Use: No Substance Use Type: Reports: None Hx Tobacco Use: No Smoking Status (MU): Never Smoked Tobacco Have You Smoked in the Last Year: No Review of Systems Constitutional: Negative Negative: Fever, Chills, Fatigue, Skin Diaphoresis Positive: Dental Pain Negative: Palpitations, Chest Pain Negative: Shortness Of Breath, Cough Negative: Abdominal Pain, Vomiting, Diarrhea, Nausea Genitourinary: Negative Positive: no symptoms reported, see HPI Skin: Negative Neurological: Negative All Other Systems Reviewed And Are Negative: Yes Physical Exam Triage Information Reviewed: Yes Vital Signs On Initial Exam: Initial Vitals Temp Pulse Resp BP Pulse Ox 97.7 F 71 16 166/118 94 05/12/18 07:48 05/12/18 07:48 05/12/18 07:48 05/12/18 07:48 05/12/18 07:48 Vital Signs Reviewed: Yes Appearance: Positive: Well-Appearing, Well-Nourished Skin: Positive: Warm Head/Face: Positive: Normal Head/Face Inspection Eyes: Positive: EOMI, MARITZA, Conjunctiva Clear Dental: Positive: Gross Decay/Caries @ - throughout, Dental Fracture @ - Left upper #14 with previous dental work, Abscess @ - tooth #14 Respiratory/Lung Sounds: Positive: Clear to Auscultation, Breath Sounds Present Cardiovascular: Positive: RRR, Pulses are Symmetrical in both Upper and Lower Extremities Musculoskeletal: Positive: Normal, Strength/ROM Intact Neurological: Positive: Speech Normal Psychiatric: Positive: Normal, Affect/Mood Appropriate AVPU Assessment: Alert Diagnostics - Vital Signs Vital Signs Temp Pulse Resp BP Pulse Ox 05/12/18 09:24 97.8 F 73 16 162/90 95 05/12/18 07:48 97.7 F 71 16 166/118 94 - Laboratory Lab Statement: Any lab studies that have been ordered have been reviewed, and results considered in the medical decision making process. EENT Course/Dx - Course Course Of Treatment: Patient is evaluated for dental pain to #14 tooth. She states she has been on 2 rounds of antibiotics and has been taking ibuprofen and Tylenol without much relief. She denies any sick fevers, sweats, chills or worsening swelling. She continues to remain on the antibiotic, but have agreed to give her 2 days worth of tramadol until the extraction can be completed tomorrow. - Diagnoses Provider Diagnoses: Pain, dental Discharge - Sign-Out/Discharge Documenting (check all that apply): Patient Departure - Discharge Plan Condition: Stable Disposition: HOME Prescriptions: traMADol TAB* [Ultram*] 50 mg PO Q8H PRN #6 tab MDD 3 PRN Reason: Pain Referrals: Fabián Melton MD [Primary Care Provider] - Additional Instructions: Continue your antibiotic Tramadol three times daily as needed for pain Continue ibuprofen and tylenol You may intermittently use these every 3 hours for pain control Ambesol over the counter may help - Billing Disposition and Condition Condition: STABLE Disposition: Home
== END 2018-05-12 09:24 | disposition home or self-care (01) ==
LOC: ED 07:46
DX: K08.89 Other specified disorders of teeth and supporting structures (principal); I10 Essential (primary) hypertension
CPT/HCPCS: 99282

== ENCOUNTER 2018-05-22 18:39 | Emergency (ER) | payer OTHER ==
[2018-05-22] MEDS ORDERED: Albuterol 2.5 MG/3 ML NEB.SOL* (0.083%) INH ONE (19:41)
--- NOTE | 2018-05-22 19:50 | ED ---
Respiratory - HPI Summary HPI Summary: patient feeling poorly , pain on deep inspiration, cough , sweats , mylagias - History of Current Complaint Chief Complaint: UCRespiratory Stated Complaint: RESP Time Seen by Provider: 05/22/18 19:31 Hx Obtained From: Patient Onset/Duration: Sudden Onset Initial Severity: Moderate Current Severity: Moderate Pain Intensity: 8 Character: Cough (Nonproductive), Dyspnea on Exertion Sputum Amount: None Aggravating Factor(s): Nothing Alleviating Factor(s): Nothing Associated Signs and Symptoms: SOB, Nasal Congestion - Allergy/Home Medications Allergies/Adverse Reactions: Allergies Allergy/AdvReac Type Severity Reaction Status Date / Time No Known Allergies Allergy Verified 05/22/18 19:26 PMH/Surg Hx/FS Hx/Imm Hx Previously Healthy: Yes Endocrine/Hematology History: Reports: Hx Thyroid Disease - hypo Denies: Hx Diabetes Cardiovascular History: Reports: Hx Hypertension - on meds Denies: Hx Congestive Heart Failure, Hx Pacemaker/ICD, Other Cardiovascular Problems/Disorders Respiratory History: Denies: Hx Asthma, Hx Chronic Obstructive Pulmonary Disease (COPD), Other Respiratory Problems/Disorders GI History: Denies: Hx Ulcer, Other GI Disorders History: Denies: Other Problems/Disorders Musculoskeletal History: Denies: Other Musculoskeletal History Sensory History: Denies: Hx Contacts or Glasses, Hx Hearing Aid Opthamlomology History: Denies: Hx Contacts or Glasses Neurological History: Reports: Hx Migraine - 2 MIGRAINES A WEEK Denies: Other Neuro Impairments/Disorders Psychiatric History: Reports: Hx Depression - Surgical History Surgery Procedure, Year, and Place: right wrist. appendectomy. gall bladder. Hx Anesthesia Reactions: No - Immunization History Date of Tetanus Vaccine: UNK Date of Influenza Vaccine: UNK Infectious Disease History: No Infectious Disease History: Denies: Hx Clostridium Difficile, Hx Hepatitis, Hx Human Immunodeficiency Virus (HIV), Hx of Known/Suspected MRSA, Hx Shingles, Hx Tuberculosis, Hx Known/ Suspected VRE, Hx Known/Suspected VRSA, History Other Infectious Disease, Traveled Outside the [place] in Last 30 Days - Family History Known Family History: Positive: Cardiac Disease, Hypertension, Diabetes - Social History Alcohol Use: Occasionally Hx Substance Use: No Substance Use Type: Reports: None Hx Tobacco Use: No Smoking Status (MU): Never Smoked Tobacco Have You Smoked in the Last Year: No Review of Systems Constitutional: Negative Eyes: Negative ENT: Negative Cardiovascular: Negative Respiratory: Negative Gastrointestinal: Negative Genitourinary: Negative Musculoskeletal: Negative Skin: Negative Neurological: Negative Psychological: Normal All Other Systems Reviewed And Are Negative: Yes Physical Exam Triage Information Reviewed: Yes Vital Signs On Initial Exam: Initial Vitals Temp Pulse Resp BP Pulse Ox 35.9 C 115 18 137/85 99 05/22/18 19:18 05/22/18 19:18 05/22/18 19:18 05/22/18 19:18 05/22/18 19:18 Vital Signs Reviewed: Yes Appearance: Positive: Ill-Appearing Skin: Positive: Warm, Dry Head/Face: Positive: Normal Head/Face Inspection Eyes: Positive: Normal ENT: Positive: Normal ENT inspection Neck: Positive: Supple Respiratory/Lung Sounds: Positive: Rales - right lower lobe Cardiovascular: Positive: Normal Abdomen Description: Positive: Nontender Bowel Sounds: Positive: Present Musculoskeletal: Positive: Normal Diagnostics - Vital Signs Vital Signs Temp Pulse Resp BP Pulse Ox 05/22/18 19:18 35.9 C 115 18 137/85 99 - Laboratory Lab Statement: Any lab studies that have been ordered have been reviewed, and results considered in the medical decision making process. Disposition - Diagnoses Provider Diagnoses: Viral URI with cough Discharge - Sign-Out/Discharge Documenting (check all that apply): Patient Departure All imaging exams completed and their final reports reviewed: Yes - Discharge Plan Condition: Fair Disposition: HOME Referrals: Fabián Melton MD [Primary Care Provider] - - Billing Disposition and Condition Condition: FAIR Disposition: Home
[2018-05-22] MEDS ORDERED: Albuterol HFA INHALER* 8 gm MDI INH ONE ×2 (20:39→20:40)
[2018-05-22 21:01] VITALS: BP 130/88
--- NOTE | 2018-05-23 07:54 | RAD ---
INDICATION: Cough. Post radiation to the breast. Central and posterior chest pain. Shortness of breath. COMPARISON: April 16, [address] May 31, 2012 chest radiograph. TECHNIQUE: Dual energy PA and routine lateral views of the chest were obtained. REPORT: Accounting for superimposed soft tissues with large body habitus the lungs and pleural spaces are clear. Negative for pneumothorax. The heart, pulmonary vasculature, and mediastinal contours are unremarkable. No suspicious osseous lesions evident. IMPRESSION: #. No evidence for acute intrathoracic disease. R0
== END 2018-05-22 20:40 | disposition home or self-care (01) ==
LOC: UCEAST 18:39
DX: J06.9 Acute upper respiratory infection, unspecified (principal); R05 Cough; I10 Essential (primary) hypertension
CPT/HCPCS: 71046; 99212; A9270-GY; G0463

== ENCOUNTER 2018-09-21 21:42 | Emergency (ER) | payer OTHER ==
--- OUTSIDE RECORDS SUMMARY | 2018-09-21 21:52 | XMS REPORT | Continuity of Care Document ---
:1990 External Reference #:[id number] Author Name Lilian Blackwell Care Team Providers Name Role Phone Fabián Melton MD Primary Care Physician Unavailable Payers Type Date Identification Numbers Payment Provider Subscriber Effective: Policy Number: [id number] Gene Momin 2015 Group Name: [id number] [address] PayID: [id number] [place] [address] Onset: 2011 Policy Number: [id number] [facility] Comp Ashley Momin PayID: [id number] [address] [place] [address] Advance Directives Description No Information Available Problems Date Description Provider Status Onset: 08/30/2018 Obstructive sleep apnea Katie Mendez DNP, RN, Active syndrome DIRECTOR OF SCIENCE-BC Onset: 08/30/2018 Body mass index 40+ - severely Katie Mendez DNP, RN, Active obese DIRECTOR OF SCIENCE-BC Family History Date Family Member(s) Problem(s) Comments General Hypertension Father due to shot () Mother Hypertension Social History Type Date Description Comments Sex Unknown Lives With 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 ETOH Use Occasionally consumes alcohol Tobacco Use Start: Unknown Patient has never smoked Smoking Status Reviewed: 08/30/18 Patient has never smoked Exercise Type/Frequency Exercises sporadically Allergies, Adverse Reactions, Alerts Description No Known Drug Allergies Medications Medication Date Status Form Strength Qnty SIG Indications Ordering Provider Metformin HCL 02/20 Active Tablets 500mg 1 by mouth twice a day Triamterene/[place] 09/23 Active Capsules 37.5-25mg 1 by mouth Unknown chlorothiazide /2017 every day Biotin Maximum 06/12 Active Capsules 5000mcg once daily Yanna Menendez Strength MD [place] Vitamin D3 Super 06/12 Active Capsules 2000Unit once daily Yanna Menendez MD [place] Prozac 11/01 Active Capsules 40mg 1 by mouth every day Trazodone HCL 03/20 Active Tablets 50mg 1 tablet at bedtime as needed Levothyroxine 11/01 Active Tablets 100mcg take one Unknown tablet once daily Wellbutrin SR 11/01 Active Tablets ER 150mg 1 by mouth 12HR every day Albuterol Sulfate Active Nebulizer (2.5mg/3M 1 vial via L) 0.083% nebulizer 4 times daily as needed Hydrochlorothiazi Active Capsules 12.5mg 1 by mouth Unknown every day Mapap Active Tablets 500mg as needed Unknown Ibuprofen 03/03 Hx Tablets 800mg 100ta 1 po tid bs Shaan Nuñez M.D. 07/17 Ultracet 12/11 Hx Tablets 37.5-325m 40tab 1 - 2 po g s q4-6hr Shaan Nuñez M.D. 04/19 Trazodone HCL Hx Tablets 30tab 1 tablet Unknown / s at bedtime - as needed 04/19 Wellbutrin SR Hx Tablets ER 60tab 1 po qd Unknown / 12HR s - 04/19 Plus Hx Tablets 27-1mg 30tab 1 by mouth Unknown / s every day - 06/12 Naproxen Hx Tablets 500mg 1 tablet Unknown / with food - by mouth 07/17 twice day Sumatriptan Hx Tablets 100mg 1 tab Unknown Succinate twice a - day max 2 06/12 days week Vitamin E Hx Capsules 400Unit 1 by mouth Unknown / every day - 07/17 Immunizations Description No Information Available Vital Signs Date Vital Result Comment 08/30/2018 8:40am Height 67 inches 5'7" Weight 348.50 lb Heart Rate 70 /min BP Systolic Sitting 130 mmHg Lue large cuff BP Diastolic Sitting 80 mmHg Lue large cuff Respiratory Rate 14 /min O2 % BldC Oximetry 97 % BMI (Body Mass Index) 54.6 kg/m2 08/19/2018 9:00am Height 67 inches 5'7" Weight 359.00 lb Heart Rate 68 /min BP Systolic Sitting 134 mmHg Lue large cuff BP Diastolic Sitting 84 mmHg Lue large cuff Respiratory Rate 12 /min O2 % BldC Oximetry 96 % BMI (Body Mass Index) 56.2 kg/m2 Neck Circumference in inches 17.25 07/15/2018 3:11pm Height 67 inches 5'7" Weight 351.25 lb Heart Rate 86 /min BP Systolic Sitting 148 mmHg large adult cuff left arm BP Diastolic Sitting 99 mmHg large adult cuff left arm Body Temperature 98.2 F O2 % BldC Oximetry 97 % at rest on room air BMI (Body Mass Index) 55.0 kg/m2 07/18/2017 10:36am Height 67 inches 5'7" Weight 346.00 lb BP Systolic 138 mmHg BP Diastolic 102 mmHg Body Temperature 97.8 F BMI (Body Mass Index) 54.2 kg/m2 08/22/2016 9:25am Height 67 inches 5'7" Weight 333.00 lb Heart Rate 60 /min BP Systolic Sitting 140 mmHg BP Diastolic Sitting 82 mmHg Respiratory Rate 16 /min Body Temperature 97.7 F BMI (Body Mass Index) 52.1 kg/m2 07/12/2016 1:48pm Height 67 inches 5'7" Weight 325.00 lb Heart Rate 74 /min BP Systolic Sitting 164 mmHg BP Diastolic Sitting 100 mmHg Respiratory Rate 16 /min Body Temperature 98.3 F BMI (Body Mass Index) 50.9 kg/m2 06/12/2016 10:40am Height 67 inches 5'7" Weight 326.00 lb Heart Rate 76 /min BP Systolic 142 mmHg BP Diastolic 90 mmHg Respiratory Rate 18 /min Body Temperature 98.5 F BMI (Body Mass Index) 51.1 kg/m2 Neck Circumference in inches 16.5 Hip Circumference 56 Waist Circumference 53 Waist to Hip Ratio .95 04/20/2014 10:07am Weight 281.00 lb Heart Rate 84 /min BP Systolic Sitting 124 mmHg BP Diastolic Sitting 80 mmHg 12/30/2012 10:48am Height 67 inches 5'7" Weight 241.00 lb Heart Rate 88 /min BP Systolic 130 mmHg BP Diastolic 80 mmHg BMI (Body Mass Index) 37.7 kg/m2 11/27/2012 9:27am Height 67 inches 5'7" Weight 240.00 lb Heart Rate 88 /min BP Systolic Sitting 126 mmHg BP Diastolic Sitting 88 mmHg BMI (Body Mass Index) 37.6 kg/m2 Results Test Date Facility Test Result H/L Range Note Laboratory test 07/30/2018 [facility] Clotest SEE RESULT [address] [place] [address] [phone] Laboratory test 07/30/2018 [facility] Surgical SEE RESULT [address] [place] [address] [phone] Bariatric Panel 06/16/2016 [facility] Ferritin 28.4 ng/mL N 11 -307 Pre-Op [address] [place] [address] [phone] Vitamin B12 262 pg/mL N 180-914 3 Folic Acid (Folate) 19.92 ng/mL N >3.99 Vitamin D Total 25(Oh) 29.3 ng/mL Low 30-50 Vitamin B1 (Whole Blood) 122 nmol/L N 70-180 4 Vitamin E Level 4.9 mg/L Abnormal 5.5 - 17.0 5 TSH (Thyroid Stim Horm) 4.56 mcIU/mL N 0.34-5.60 Cortisol 6.49 ?g/dL N 6 Comp Metabolic Panel 06/16/2016 [facility] Sodium 139 mmol/L N 133-[address] [place] [address] [phone] Potassium 3.6 mmol/L N 3.5-5.0 Chloride 107 mmol/L N 101-111 Co2 Carbon Dioxide 25 mmol/L N 22-32 Anion Gap 7 mmol/L N 2-11 Glucose 90 mg/dL N 70-100 Blood Urea Nitrogen 9 mg/dL N 6-24 Creatinine 0.73 mg/dL N 0.51-0.95 BUN/Creatinine Ratio 12.3 N 8-20 Calcium 8.9 mg/dL N 8.6-10.3 Total Protein 6.7 g/dL N 6.4-8.9 Albumin 4.1 g/dL N 3.2-5.2 Globulin 2.6 g/dL N 2-4 Albumin/Globulin Ratio 1.6 N 1-3 Total Bilirubin 0.60 mg/dL N 0.2-1.0 Alkaline Phosphatase 65 U/L N 34-104 Alt 23 U/L N 7-52 Ast 20 U/L N 13-39 Egfr Non- 97.9 N >60 Egfr 126.0 N >60 7 CBC Auto Diff 06/16/2016 [facility] White Blood 6.7 10^3/uL N 3.5-10.[address] [place] [address] [phone] Red Blood Count 5.11 10^6/uL N 4.0-5.4 Hemoglobin 14.2 g/dL N 12.0-16.0 Hematocrit 43 % N 35-47 Mean Corpuscular Volume 83 fL N 80-97 Mean Corpuscular Hemoglobin 28 pg N 27-31 Mean Corpuscular HGB Conc 33 g/dL N 31-36 Red Cell Distribution Width 14 % N 10.5-15 Platelet Count 234 10^3/uL N 150-450 Mean Platelet Volume 8 um3 N 7.4-10.4 Abs Neutrophils 3.4 10^3/uL N 1.5-7.7 Abs Lymphocytes 2.5 10^3/uL N 1.0-4.8 Abs Monocytes 0.5 10^3/uL N 0-0.8 Abs Eosinophils 0.2 10^3/uL N 0-0.6 Abs Basophils 0 10^3/uL N 0-0.2 Abs Nucleated RBC 0 10^3/uL N Granulocyte % 50.8 % N 38-83 Lymphocyte % 38.2 % N 25-47 Monocyte % 8.3 % N 1-9 Eosinophil % 2.3 % N 0-6 Basophil % 0.4 % N 0-2 Nucleated Red Blood Cells % 0 N Iron & Iron Binding 06/16/2016 [facility] Iron 110 g/dL N 50 -212 [address] [place] [address] [phone] Unsaturated Iron Binding 233 g/dL N Total Iron Binding Capacity 343 g/dL N 250-450 % Iron Saturation 32 % N 15-55 Laboratory test 01/03/2013 [facility] Urine Negative Negative 8 finding [address] [place] [address] [phone] 1 SEE RESULT BELOW Name: ASHLEY MOMIN : [address]: Abhijeet Bass MD Acct: [id number] Unit: [id number] AGE: 27 Location: ENDO Re07/30/18 SEX: F Status: REG REF SPEC: [id number] VERN: 07/30/18-[address] [facility] DR: Abhijeet Bass MD REQ: [id number] RECD: 07/30/18 STATUS: GENO AC DR: Fabián Melton MD _ SOURCE: GAS ANTRUM SPDESC: ORDERED: Clotest Procedure Result Reported Site Clotest Final 07/31/18- 0732 ML Clotest Negative * - [facility] . END OF REPORT DEPARTMENT OF PATHOLOGY, [address] [place] [address] Stiven Saenz M.D. Director [facility] # [id number] 2 SEE RESULT BELOW Name: ASHLEY MOMIN : [address]: Abhijeet Bass MD Acct: [id number] Unit: [id number] AGE: 27 Location: ENDO Re07/30/18 SEX: F Status: DEP REF SPEC: [id number] VERN: 07/30/[address] [facility] DR: Abhijeet Bass MD REQ: [id number] RECD: 07/30/186258 STATUS: SUDEEP AC DR: Reagan Melton MD _ ORDERED: LEVEL 4 FINAL DIAGNOSIS Stomach, antrum, biopsy: -- Body-type gastric mucosa with reactive chemical gastropathy. CLINICAL HISTORY Pre bariatric; body mass index 55 POST-OPERATIVE DIAGNOSIS EGD: larynx - normal, narrow; esophagus - normal esophagogastric 39 cm, loose ; stomach - erosion spiculated antrum; mild 1 erosion prepyloric 1 cm; duodenum - ? straight shot?, normal; conclusions: hiatal hernia; gastritis; gastroesophageal reflux disease GROSS DESCRIPTION The specimen is received in formalin labeled, Biopsy Gastric Antrum, and consists of two ramos-pink irregular soft tissue fragments measuring 0.4 x 0.3 x 0.2 cm and 0.6 x 0.3 x 0.1 cm which are submitted entirely in one cassette. Signed by and Reported on: Callie Lemus MD 07/31/18 1043 END OF REPORT DEPARTMENT OF PATHOLOGY, [address] [place] [address] Stiven Saenz M.D. Director [facility] # [id number] 3 Normal Range 180 to 914 Indeterminate Range 145 to 180 Deficient Range <145 4 ADDITIONAL INFORMATION This test was developed and its performance characteristics determined by [facility] in a manner consistent with CLIA requirements. This test has not been cleared or approved by the U.S. Food and Drug Administration. Test Performed by: [facility] - [address] [address] Lead Supply Worker: Javi Tijerina II, M.D., Ph.D. 5 ADDITIONAL INFORMATION This test was developed and its performance characteristics determined by [facility] in a manner consistent with CLIA requirements. This test has not been cleared or approved by the U.S. Food and Drug Administration. Test Performed by: [facility] [place] [address] Lead Supply Worker: Javi Tijerina II, M.D., Ph.D. 6 AM 8.7-22.4 PM <10 7 Because ethnic data is not always readily available, this report includes an eGFR for both -Americans and non- Americans. The National Kidney Disease Education Program (NKDEP) does not endorse the use of the MDRD equation for patients that are not between the ages of 18 and 70, are , have extremes of body size, muscle mass, or nutritional status, or are non- or non-. According to the National Kidney Foundation, irrespective of diagnosis, the stage of the disease is based on the level of kidney function: Stage Description GFR(mL/min/1.73 m(2)) 1 Kidney damage with normal or decreased GFR 90 2 Kidney damage with mild decrease in GFR 60-89 3 Moderate decrease in GFR 30-59 4 Severe decrease in GFR 15-29 5 Kidney failure <15 (or dialysis) 8 If is still suspected, please repeat test after 48 to 72 hours. This test detects intact HCG only and is indicated for the early detection of . Procedures Date Code Description Status 07/30/2018 07692 Endoscopy Upper GI Biopsy Completed 08/11/2015 97960 Laparoscopy Cholecystectomy Completed 01/03/2013 78753 Dequervains-Tendon Sheath Incision/Extensor Sheath,Wrist Completed Encounters Type Date Location Provider Dx Diagnosis Office Visit 08/19/2018 Pulmonology And Sleep Lily Parker MD R06.83 Snoring 9:30a [facility] R53.83 Other fatigue E66.01 Morbid (severe) obesity due to excess calories Z68.43 Body mass index (BMI) 50-59.9, adult Office Visit 07/15/2018 [facility] Gastroenterology Abhijeet Ward E66.01 Morbid 3:15p MD Kali (severe) obesity due to excess calories R10.13 Epigastric pain Office Visit 07/18/2017 10:30a Orthopedic Services Cami Weir, M25.562 Pain in left Of C.M.A. M.D. knee M25.462 Effusion, left knee S83.242A Oth tear of medial meniscus, current injury, left knee, init E66.01 Morbid (severe) obesity due to excess calories Office Visit 08/22/2016 9:30a Surgical Fabricio Marvin E66.01 Morbid [facility] NESS Ribera (severe) obesity due to excess calories Z71.3 Dietary counseling and surveillance Office Visit 07/12/2016 2:00p Surgical Reagan Sequeira E66.01 Morbid ( severe) [facility] GABRIEL MENDIOLA obesity due to excess calories Z71.3 Dietary counseling and surveillance Office Visit 06/12/2016 10:30a Surgical Fabricio Marvin E66.01 Morbid [facility] NESS [place] (severe) obesity due to excess calories I10 Essential (primary) hypertension M54.5 Low back pain Z68.43 Body mass index (BMI) 50-59.9 , adult Office Visit 04/20/2014 Orthopedic Renee 727.04 Tenosynovitis 10:15a [facility] Of Genia Ritchie M.D. Radial Styloid AT [place] Office Visit 05/21/2013 Orthopedic Renee 727.04 Tenosynovitis 11:00a Services Of Genia Ritchie M.D. Radial Styloid AT [place] Office Visit 03/05/2013 Orthopedic Renee 727.04 Tenosynovitis 9:15a Services Of Genia Ritchie M.D. Radial Styloid AT [place] Plan of Treatment Future Appointment(s):10/11/2018 8:45 am - Katie Mendez DNP, RN, DIRECTOR OF SCIENCE-BC at [facility]08/30/2018 - Katie Mednez DNP, RN, DIRECTOR OF SCIENCE- BCG47.33 Obstructive sleep apnea (adult) (pediatric)New Orders:Sleep-Home[facility], Ordered: 08/30/18Comments:Sleep apnea AHI 20.5/hour, bhavana oxygen 80% (<90 % 98 minutes)Follow up:6 weeksRecommendations:Sleep apnea to start PAP at 5-15 cm Review of sleep study in detail. Review of risks of untreated sleep apnea including cardiovascular events: rhythm irregularities, heart attack, stroke; gastro esophageal reflux disease (GERD); diabetes; anxiety, depression; high blood pressure; accidents (machinery and automobile) Recommendation for PAP other treatment modalities NON-PAP including oral appliance/mandibular advancement device, positional strategies , and surgery discussed. Referral for PAP device to be sent to [facility] phone: [phone] Equipment appointment will take about 45 minutes, the DME provider will call you within 5 days to set you up for the device. If you do nothear from them call the Sleep Center. It takes about a week for Gene to approve treatment. The mask will have a 30-day guarantee, if you have mask problems call the DME provider to have a fitting for a different mask. Need distilled water for humidifier CPAP mask and tubing Cleaning Wipe off mask daily (baby wipe-no scent , or warm water) Clean mask, tubing, filter, and water chamber weekly in mildno scent dish soap and water. Hang to dry. If you have problems with the air pressure call the sleep center and speak to a nurse. If you have any further questions, please call the [facility] Center at [phone]. If you have any sleepiness while driving you MUST avoid operating a vehicle or machinery.Z68.43 Body mass index (BMI) 50-59.9, adultRecommendations:Continue with weight loss efforts and toward weight loss surgery
[2018-09-21] MEDS ORDERED: NS 0.9% 1000 ML** 2,000 ML IV ONE (23:47)
[2018-09-21] MEDS ORDERED: Acetaminophen TAB* 325 MG PO ONE (23:48)
[2018-09-21] MEDS ORDERED: PROCHLORPERAZINE INJ 5 MG/ML 2 ML VIAL IV ONE (23:48)
[2018-09-22 00:16] LABS: ABS Basophils 0 10^3/ul (0-0.2); ABS Eosinophils 0 10^3/ul (0-0.6); ABS Lymphocytes 0.6 10^3/ul (1.0-4.8); ABS Monocytes 0.9 10^3/ul (0-0.8); ABS Neutrophils 6.5 10^3/ul (1.5-7.7); ABS Nucleated RBC 0 10^3/ul; Eosinophil % 0.4 %; Hematocrit 42 % (35-47); Hemoglobin 13.8 g/dl (12.0-16.0); Lymphocyte % 6.9 %; Mean Corpuscular HGB Conc 33 g/dl (31-36); Mean Corpuscular Hemoglobin 28 pg (27-31); Mean Corpuscular Volume 85 fL (80-97); Mean Platelet Volume 7.7 fL (7.4-10.4); Nucleated Red Blood Cells % 0; Platelet Count 215 10^3/ul (150-450); Red Blood Count 4.94 10^6/ul (4.00-5.40); Red Cell Distribution Width 15 % (10.5-15)
[2018-09-22 00:39] LABS: Albumin/Globulin Ratio 1.5 (1-3); BUN/Creatinine Ratio 13.4 (8-20); C Reactive Protein 20.09 mg/L (<8.01); Calcium 8.9 mg/dL (8.6-10.3); EGFR African American 101.2 (>60); EGFR Non-African American 83.6 (>60); Globulin 2.7 g/dL (2-4); Total Bilirubin 0.3 mg/dL (0.2-1.0); Total Protein 6.7 g/dL (6.4-8.9)
[2018-09-22] MEDS ORDERED: NS 0.9% 1000 ML** 1,000 ML IV ONE (01:07)
--- NOTE | 2018-09-22 01:10 | ED ---
Influenza-Like Illness - HPI Summary HPI Summary: 28-year-old female presents with flulike symptoms today. She was seen in urgent care earlier and a negative flu. She admits to fevers and chills. She admits to occasional chest pain and shortness of breath. She states it feels like her chest is tight. She admits to a cough. She denies any bowel pain. She notes nausea but denies any vomiting. No diarrhea. She admits to sinus congestion and sore throat. She denies any neck stiffness. she admits to a headache. She states all of her muscle aches. - History of Current Complaint Chief Complaint: EDFluSymptoms Time Seen by Provider: 09/21/18 23:40 - Allergy/Home Medications Allergies/Adverse Reactions: Allergies Allergy/AdvReac Type Severity Reaction Status Date / Time ibuprofen Allergy GI Upset Verified 09/21/18 21:46 PMH/Surg Hx/FS Hx/Imm Hx Endocrine/Hematology History: Reports: Hx Thyroid Disease - hypo Denies: Hx Diabetes Cardiovascular History: Reports: Hx Hypertension - on meds Denies: Hx Congestive Heart Failure, Hx Pacemaker/ICD, Other Cardiovascular Problems/Disorders Respiratory History: Denies: Hx Asthma, Hx Chronic Obstructive Pulmonary Disease (COPD), Other Respiratory Problems/Disorders GI History: Denies: Hx Ulcer, Other GI Disorders History: Denies: Other Problems/Disorders Musculoskeletal History: Denies: Other Musculoskeletal History Sensory History: Denies: Hx Contacts or Glasses Opthamlomology History: Denies: Hx Contacts or Glasses Neurological History: Reports: Hx Migraine - 2 MIGRAINES A WEEK Denies: Other Neuro Impairments/Disorders Psychiatric History: Reports: Hx Depression - Surgical History Surgery Procedure, Year, and Place: right wrist. appendectomy. gall bladder. Hx Anesthesia Reactions: No - Immunization History Date of Tetanus Vaccine: UNK Date of Influenza Vaccine: UNK Infectious Disease History: No Infectious Disease History: Denies: Hx Clostridium Difficile, Hx Hepatitis, Hx Human Immunodeficiency Virus (HIV), Hx of Known/Suspected MRSA, Hx Shingles, Hx Tuberculosis, Hx Known/ Suspected VRE, Hx Known/Suspected VRSA, History Other Infectious Disease, Traveled Outside the [place] in Last 30 Days - Family History Known Family History: Positive: Cardiac Disease, Hypertension, Diabetes - Social History Alcohol Use: Occasionally Hx Substance Use: No Substance Use Type: Reports: None Hx Tobacco Use: No Smoking Status (MU): Never Smoked Tobacco Have You Smoked in the Last Year: No Review of Systems Positive: Fever Positive: Sore Throat, Nasal Discharge Positive: Chest Pain Positive: Shortness Of Breath, Cough Positive: Nausea. Negative: Abdominal Pain, Vomiting All Other Systems Reviewed And Are Negative: Yes Physical Exam Triage Information Reviewed: Yes Vital Signs On Initial Exam: Initial Vitals Temp Pulse Resp BP Pulse Ox 100.8 F 122 18 169/120 96 09/21/18 21:43 09/21/18 21:43 09/21/18 21:43 09/21/18 21:43 09/21/18 21:43 Vital Signs Reviewed: Yes Appearance: Positive: Well-Appearing Skin: Positive: Warm, Dry Head/Face: Positive: Normal Head/Face Inspection Eyes: Positive: Normal, EOMI, MARITZA, Conjunctiva Clear ENT: Positive: Pharyngeal erythema, TMs normal, Uvula midline. Negative: Tonsillar swelling, Tonsillar exudate, Trismus, Muffled voice Neck: Positive: Supple, Nontender, No Lymphadenopathy Respiratory/Lung Sounds: Positive: Clear to Auscultation, Breath Sounds Present Cardiovascular: Positive: Normal, RRR Abdomen Description: Positive: Nontender, Soft Bowel Sounds: Positive: Present Musculoskeletal: Positive: Normal Neurological: Positive: Normal Psychiatric: Positive: Normal Diagnostics - Vital Signs Vital Signs Temp Pulse Resp BP Pulse Ox 09/22/18 01:00 108 92 09/22/18 00:00 118 94 09/21/18 23:44 117 150/91 96 09/21/18 21:43 100.8 F 122 18 169/120 96 - Laboratory Lab Results: Lab Results 09/22/18 09/22/18 09/22/18 Range/Units 00:03 00:03 00:03 WBC 8.0 (3.5-10.8) 10^3/ul RBC 4.94 (4.00-5.40) 10^6/ul Hgb 13.8 (12.0-16.0) g/dl Hct 42 (35-47) % MCV 85 (80-97) fL MCH 28 (27-31) pg MCHC 33 (31-36) g/dl RDW 15 (10.5-15) % Plt Count 215 (150-450) 10^3/ul MPV 7.7 (7.4-10.4) fL Neut % (Auto) 81.4 % Lymph % (Auto) 6.9 % [place] % (Auto) 10.9 % Eos % (Auto) 0.4 % Baso % (Auto) 0.4 % Absolute Neuts (auto) 6.5 (1.5-7.7) 10^3/ul Absolute Lymphs (auto) 0.6 L (1.0-4.8) 10^3/ul Absolute Monos (auto) 0.9 H (0-0.8) 10^3/ul Absolute Eos (auto) 0 (0-0.6) 10^3/ul Absolute Basos (auto) 0 (0-0.2) 10^3/ul Absolute Nucleated RBC 0 10^3/ul Nucleated RBC % 0 Sodium 135 (135-145) mmol/L Potassium 4.0 (3.5-5.0) mmol/L Chloride 105 (101-111) mmol/L Carbon Dioxide 23 (22-32) mmol/L Anion Gap 7 (2-11) mmol/L BUN 11 (6-24) mg/dL Creatinine 0.82 (0.51-0.95) mg/dL Est GFR ( Amer) 101.2 (>60) Est GFR (Non-Af Amer) 83.6 (>60) BUN/Creatinine Ratio 13.4 (8-20) Glucose 115 H (70-100) mg/dL Lactic Acid 1.3 (0.5-2.0) mmol/L Calcium 8.9 (8.6-10.3) mg/dL Total Bilirubin 0.30 (0.2-1.0) mg/dL AST 15 (13-39) U/L ALT 27 (7-52) U/L Alkaline Phosphatase 59 (34-104) U/L Troponin I 0.00 (<0.04) ng/mL C-Reactive Protein 20.09 H (<8.01) mg/L Total Protein 6.7 (6.4-8.9) g/dL Albumin 4.0 (3.2-5.2) g/dL Globulin 2.7 (2-4) g/dL Albumin/Globulin Ratio 1.5 (1-3) Group A Strep Rapid (Negative) 09/22/18 Range/Units 00:33 WBC (3.5-10.8) 10^3/ul RBC (4.00-5.40) 10^6/ul Hgb (12.0-16.0) g/dl Hct (35-47) % MCV (80-97) fL MCH (27-31) pg MCHC (31-36) g/dl RDW (10.5-15) % Plt Count (150-450) 10^3/ul MPV (7.4-10.4) fL Neut % (Auto) % Lymph % (Auto) % [place] % (Auto) % Eos % (Auto) % Baso % (Auto) % Absolute Neuts (auto) (1.5-7.7) 10^3/ul Absolute Lymphs (auto) (1.0-4.8) 10^3/ul Absolute Monos (auto) (0-0.8) 10^3/ul Absolute Eos (auto) (0-0.6) 10^3/ul Absolute Basos (auto) (0-0.2) 10^3/ul Absolute Nucleated RBC 10^3/ul Nucleated RBC % Sodium (135-145) mmol/L Potassium (3.5-5.0) mmol/L Chloride (101-111) mmol/L Carbon Dioxide (22-32) mmol/L Anion Gap (2-11) mmol/L BUN (6-24) mg/dL Creatinine (0.51-0.95) mg/dL Est GFR ( Amer) (>60) Est GFR (Non-Af Amer) (>60) BUN/Creatinine Ratio (8-20) Glucose (70-100) mg/dL Lactic Acid (0.5-2.0) mmol/L Calcium (8.6-10.3) mg/dL Total Bilirubin (0.2-1.0) mg/dL AST (13-39) U/L ALT (7-52) U/L Alkaline Phosphatase (34-104) U/L Troponin I (<0.04) ng/mL C-Reactive Protein (<8.01) mg/L Total Protein (6.4-8.9) g/dL Albumin (3.2-5.2) g/dL Globulin (2-4) g/dL Albumin/Globulin Ratio (1-3) Group A Strep Rapid Negative (Negative) Result Diagrams: 09/22/18 00:03 09/22/18 00:03 Lab Statement: Any lab studies that have been ordered have been reviewed, and results considered in the medical decision making process. - Radiology chest Radiology Interpretation Completed By: ED Physician Summary of Radiographic Findings: no active disease - EKG No standard instances Cardiac Rate: Tachycardia EKG Rhythm: Sinus Tachycardia Summary of EKG Findings: sinus tachycardia Re-Evaluation - Re-Evaluation First Eval Change: Improved Comment: would like to go home Flu Symptom Course/Dx - Course Course Of Treatment: 28-year-old female presents with flulike symptoms today. She was seen in urgent care earlier and a negative flu. She admits to fevers and chills. She admits to occasional chest pain and shortness of breath. She states it feels like her chest is tight. She admits to a cough. She denies any bowel pain. She notes nausea but denies any vomiting. No diarrhea. She admits to sinus congestion and sore throat. She denies any neck stiffness. she admits to a headache. She states all of her muscle aches. On exam lungs clear to auscultation. Patient is tachycardic. EKG shows sinus tach. Abdomen soft nontender. Pharynx erythematous. Strep is negative. White blood cell count normal. Gave 1 L fluid and patient would like to go home as is feeling better. Chest x-ray read by me as normal. Told to continue to treat supportively. Patient understands and agrees with the plan. - Diagnoses Differential Diagnosis/HQI/PQRI: Positive: Influenza, Pneumonia, Upper Respiratory Infection Provider Diagnoses: Upper respiratory infection Discharge - Sign-Out/Discharge Documenting (check all that apply): Patient Departure Patient Received Moderate/Deep Sedation with Procedure: No - Discharge Plan Condition: Good Disposition: HOME Patient Education Materials: Fever in Adults (ED) Referrals: Fabián Melton MD [Primary Care Provider] - Additional Instructions: take Tylenol every 6 hours for pain and fever Use saline rinses in nose for nasal congestion drink plenty of fluids Follow up with primary within 3 days Return to ED if develop any new or worsening symptoms - Billing Disposition and Condition Condition: GOOD Disposition: Home
[2018-09-22 01:52] VITALS: BP 151/92
== END 2018-09-22 01:59 | disposition home or self-care (01) ==
LOC: ED 21:42
DX: J06.9 Acute upper respiratory infection, unspecified (principal); R50.9 Fever, unspecified; I10 Essential (primary) hypertension; J02.9 Acute pharyngitis, unspecified; R07.9 Chest pain, unspecified; R06.02 Shortness of breath
CPT/HCPCS: 36415; 71046; 80053; 83605; 84484; 85025; 86140; 87040; 87651; 93005; 96361; 96374; 99283; A9270-GY; J0780

== ENCOUNTER 2018-10-15 11:09 | Inpatient (IN) | payer OTHER ==
[~2018-10-15 11:09] MED LIST: Buffered Lidocaine 1% SYRIN* 1 ML/SYRINGE INTRADERM ONE; Famotidine IV* 10 MG/ML 2 ML (20 mg) IV ONE; Lactated Ringers 1000 ML Bag* 1,000 ML IV SCH
[2018-10-15] MEDS ORDERED: Heparin VIAL(*) 5000 UNITS/ML VIAL (FIVE THOUSAND) ONE (11:36)
[2018-10-15] MEDS ORDERED: ceFAZolin 2 GM PREMIX in ORs 2 GM/50 ML BAG IVPB ONE (11:37)
[2018-10-15] MEDS ORDERED: ceFAZolin 1 GM ADVAN(*) 1 GM ADDV.VIAL IVPB ONE (11:37)
[2018-10-15] MEDS ORDERED: Buffered Lidocaine 1% SYRIN* 1 ML/SYRINGE INTRADERM ONE (11:37)
[2018-10-15] MEDS ORDERED: Famotidine IV* 10 MG/ML 2 ML (20 mg) ONE (11:37)
[2018-10-15] MEDS ORDERED: fentaNYL* 50 MCG/ML 2 ML VIAL (100 MCG VIAL) ONE ×3 (12:17→14:46)
[2018-10-15] MEDS ORDERED: Midazolam* 1 MG/ML 5 ML VIAL (5 MG) ONE (12:17)
[2018-10-15] MEDS ORDERED: Bupivacaine 0.5% W/EPI SDV* 30 ML VIAL ONE (12:50)
[2018-10-15] MEDS ORDERED: Rocuronium* 10 MG/ML VIAL ONE ×2 (13:22→13:54)
[2018-10-15] MEDS ORDERED: Succinylcholine* 20 MG/ML 10 ML VIAL ONE (13:44)
[2018-10-15] MEDS ORDERED: Propofol* 10 MG/ML 20 ML BTL ONE (13:44)
[2018-10-15] MEDS ORDERED: Ondansetron INJ* 2 MG/ML VIAL ONE (13:44)
[2018-10-15] MEDS ORDERED: DiMENhydriNATE IV* 50 MG/ML VIAL ONE ×2 (13:44→16:18)
[2018-10-15] MEDS ORDERED: Ketorolac INJ* 30 MG/ML 1 ML VIAL ONE (13:44)
[2018-10-15] MEDS ORDERED: Lidocaine 2% PF * 5 ML VIAL ONE (13:44)
[2018-10-15] MEDS ORDERED: Dexamethasone IV* 4 MG/ML 1 ML (4 MG) ONE (13:44)
[2018-10-15] MEDS ORDERED: Scopolamine 1.5 mg* PATCH ONE (14:03)
[2018-10-15] MEDS ORDERED: Naloxone* 0.4 MG/ML 1 ML VIAL IV PRN (14:33)
[2018-10-15] MEDS ORDERED: HYDROmorphone INJ1* 1 MG/ML SYRINGE IV PRN (14:33)
[2018-10-15] MEDS ORDERED: Acetaminophen IV 1GM/100ML * 1,000 MG/100 ML VIAL IVPB ONE (14:33)
[2018-10-15] MEDS ORDERED: DiMENhydriNATE IV* 50 MG/ML VIAL IV PUSH PRN ×2 (14:33→18:13)
[2018-10-15] MEDS ORDERED: diPHENhydraMINE IV* 50 MG/ML 1 ml VIAL (BENADRYL) SLOW PUSH PRN (15:28)
[2018-10-15] MEDS ORDERED: HYDROmorphone INJ1* 1 MG/ML SYRINGE ONE (15:33)
[2018-10-15] MEDS ORDERED: Albuterol HFA INHALER* 8 gm MDI INH PRN (15:35)
[2018-10-15] MEDS ORDERED: Acetaminophen IV 1GM/100ML * 100 ML ONE (16:03)
[2018-10-15] MEDS: Lactated Ringers 1000 ML Bag* 1,000 ML IV SCH (17:53)
[2018-10-15] MEDS: Ondansetron INJ* 2 MG/ML VIAL IV PRN (17:57)
[2018-10-15] MEDS: HYDROmorphone INJ1* 1 MG/ML SYRINGE IV SLOW PU PRN (19:17)
[2018-10-15] MEDS ORDERED: Famotidine IV * 20 MG in NS 0.9% 100 ML* 100 ML IVPB SCH (21:00)
[2018-10-15] MEDS: Famotidine IV* 10 MG/ML 2 ML (20 mg) IV SLOW PU SCH (21:56)
[2018-10-15] MEDS: Ketorolac INJ* 30 MG/ML 1 ML VIAL IV SCH (22:00)
[2018-10-15] MEDS: Heparin VIAL(*) 5000 UNITS/ML VIAL (FIVE THOUSAND) SUBCUT SCH (22:05)
[2018-10-16] MEDS: Lactated Ringers 1000 ML Bag* 1,000 ML IV SCH ×3 (00:34→23:09)
--- NOTE | 2018-10-16 00:41 | OP ---
CC: [facility]; Fabián Melton MD * DATE OF OPERATION: 10/15/18 - ROOM #352 DATE OF : 89 SURGEON: Dr. Sequeira. VASCULAR ULTRASOUND TECHNICIAN: NESS Rodriguez ANESTHESIA: General endotracheal. ANESTHESIOLOGIST: Dr. Ramos PRE-OP DIAGNOSIS: Morbid obesity. POST-OP DIAGNOSIS: Morbid obesity. OPERATIVE PROCEDURE: Laparoscopic Kike-en-Y gastric bypass. ESTIMATED BLOOD LOSS: 50 mL. IV FLUIDS: Crystalloid. SPECIMEN: None. DRAINS: None. COMPLICATIONS: None. COUNTS: The instrument, needle, and sponge counts were correct. DESCRIPTION OF PROCEDURE: The patient was brought to the operating room and placed on the table supine. Sequential compression devices were placed on both lower extremities. General anesthesia was administered. Her abdomen was prepped and draped in usual sterile fashion. She received appropriate intravenous antibiotics and time-out was performed. Local anesthetic was infiltrated into the skin and soft tissue prior to making each incision. The abdomen was entered through a left upper quadrant incision accommodating a 12 mm optical trocar. After accessing the peritoneal cavity, carbon dioxide was insufflated to a pressure of 15 mmHg. Under direct visualization, 12 mm bladeless trocars were placed in the supraumbilical midline and right upper quadrant. 5 mm trocars were in placed in the right upper quadrant medially and left upper quadrant laterally. [place] liver retractor was placed percutaneously in the subxiphoid position and used to elevate left lobe of the liver. Gastric anatomy appeared normal. Mobilization of fundus of the stomach proceeded bluntly, dissecting this free from the left bradly of the diaphragm. Perigastric dissection of the stomach was then undertaken on the lesser curvature to enter the lesser sac. Transverse firing of the EndoGIA stapler was used to initiate the pouch at approximately the second crossing vein. Then vertical firings of the EndoGIA stapler with ramos cartridges were taken vertically towards the angle of His. Patient was noted to have a moderate size hiatal hernia, but the stomach was fully reduced from this during the dissection. The staple lines were noted to be intact and hemostatic. Omentum was retracted cephalad, divided down the midline with a LigaSure. Transverse colon was retracted superiorly and ligament of Treitz was identified. The jejunum was measured approximately 50 cm. At this point, this loop of jejunum was sutured to the lateral left staple line on the gastric pouch with interrupted 2-0 silk. A gastrojejunal anastomosis was then performed with the EndoGIA stapler with a 30 mm ramos cartridge. The common gastroenterotomy was then closed with 3-0 PDS over 34-Irish gastric lavage tube. There was some purplish discoloration of the tissue on the anterior edge of the gastric pouch staple line which was incorporated into the suture closure , and in addition, suturing of the gastric pouch over the site was performed with 2-0 silk sutures to imbricate it further. After completing this, the loop of jejunum was divided to the left of the anastomosis with the EndoGIA stapler with the use of a ramos cartridge. The gastro-jejunal anastomosis was then tested with methylene blue dye instilled through the orogastric tube, no leaks were identified. The Kike limb was measured out 75 cm, and at this point, a functional end-to-side jejunojejunostomy was created with a 60 mm ramos EndoGIA stapler cartridge and the common enterotomy was again run closed with 3-0 PDS running it to and fro. The mesenteric defect at the jejunojejunostomy was closed with interrupted 3-0 silks using [id number] sutures. After inspecting for hemostasis, there was noted to be some oozing along the cut edge of Kike limb and this was made hemostatic with clip placement. Lavage was performed in the abdomen until clear. Ports were then removed under direct visualization and carbon dioxide was released. The skin incisions were closed with 4-0 Monocryl in subcuticular fashion. Steri-Strips were applied with dressings. The patient tolerated the procedure well, was extubated, and transferred to recovery in stable condition. [id number]/[facility] #: [id number] [facility] CENTERSimone
[2018-10-16] MEDS: Ondansetron INJ* 2 MG/ML VIAL IV PRN ×2 (01:13→15:05)
[2018-10-16] MEDS: HYDROmorphone INJ1* 1 MG/ML SYRINGE IV SLOW PU PRN ×5 (01:13→23:14)
[2018-10-16] MEDS: Ketorolac INJ* 30 MG/ML 1 ML VIAL IV SCH (04:00)
[2018-10-16 05:28] LABS: ABS Basophils 0.1 10^3/ul (0-0.2); ABS Eosinophils 0 10^3/ul (0-0.6); ABS Lymphocytes 2.1 10^3/ul (1.0-4.8); ABS Monocytes 0.9 10^3/ul (0-0.8); ABS Neutrophils 11.7 10^3/ul (1.5-7.7); ABS Nucleated RBC 0 10^3/ul; Eosinophil % 0.1 %; Hematocrit 35 % (35-47); Hemoglobin 11.6 g/dl (12.0-16.0); Lymphocyte % 14.2 %; Mean Corpuscular HGB Conc 33 g/dl (31-36); Mean Corpuscular Hemoglobin 28 pg (27-31); Mean Corpuscular Volume 85 fL (80-97); Mean Platelet Volume 7.1 fL (7.4-10.4); Nucleated Red Blood Cells % 0; Platelet Count 375 10^3/ul (150-450); Red Blood Count 4.12 10^6/ul (4.00-5.40); Red Cell Distribution Width 14 % (10.5-15); White Blood Count 14.7 10^3/ul (3.5-10.8)
[2018-10-16] MEDS ORDERED: Lactated Ringers 1000 ML Bag* 1,000 ML IV ONE (06:30)
[2018-10-16] MEDS: Heparin VIAL(*) 5000 UNITS/ML VIAL (FIVE THOUSAND) SUBCUT SCH (06:37)
--- NOTE | 2018-10-16 06:48 | PN ---
Progress Note - Progress Note Date of Service: 10/16/18 SOAP: Subjective: Called by RN due to BRBPR 2x this AM. Pt reports she felt she needed to have BM and when she did it was blood and clot. RN states HR was up to 130's and sBP was 130 after and estimates total 1.1L blood loss. Pt reports anxiety but no abdominal pain, N/V. Denies feeling lightheaded or dizzy. Objective: Vital Signs Temp 99.4 F 10/16/18 05:06 Pulse 99 10/16/18 05:42 Resp 20 10/16/18 05:42 BP 112/74 10/16/18 05:42 Pulse Ox 96 10/16/18 05:42 Gen: NAD; Sleeping but arousable. Abd: obese; dressings c/d/i; soft and NT. Ext: warm and well perfused Intake & Output 10/15/18 10/15/18 10/16/18 06:59 18:59 06:59 Intake Total 2000 980 Output Total 500 2300 Balance 1500 -1320 Weight 335 lb 9.6 oz Intake: IV Fluids 2000 980 LR 2000 980 Oral 0 Output: Urine 500 1200 Liquid Stool 1100 Laboratory Results - last 24 hr 10/16/18 10/16/18 05:21 05:21 WBC 14.7 H RBC 4.12 Hgb 11.6 L Hct 35 MCV 85 MCH 28 MCHC 33 RDW 14 Plt Count 375 MPV 7.1 L Neut % (Auto) 79.3 Lymph % (Auto) 14.2 [place] % (Auto) 5.8 Eos % (Auto) 0.1 Baso % (Auto) 0.6 Absolute Neuts (auto) 11.7 H Absolute Lymphs (auto) 2.1 Absolute Monos (auto) 0.9 H Absolute Eos (auto) 0 Absolute Basos (auto) 0.1 Absolute Nucleated RBC 0 Nucleated RBC % 0 Blood Type O Positive Antibody Screen Negative Crossmatch See Detail Assessment: POD#1 s/p LRYGB. GI bleed, currently is hemodynamically stable. Likely source is staple line or anastamosis. Plan: Hold heparin and NSAIDs. IVF bolus. Monitor VS and u/o (may need villatoro). Bleeding scan. Serial H/H. Keep NPO for now. Plan d/w RN and pt and all questions answered.
[2018-10-16] MEDS: Famotidine IV* 10 MG/ML 2 ML (20 mg) IV SLOW PU SCH ×2 (08:57→21:25)
[2018-10-16 09:12] LABS: Hematocrit 32 % (35-47); Hemoglobin 10.6 g/dl (12.0-16.0)
--- NOTE | 2018-10-16 10:06 | PN ---
Progress Note - Progress Note Date of Service: 10/16/18 Note: 0950 Surgical progress note:Hemoglobin 10.6,bleeding scan shows active bleeding at j-j anastamosis per Dr Sequeira;will transfuse 1uprbcs;VSS;HR116,sleeping off and on,no dyspnea or dizziness;repeat H&H after first unit prbcs and update Dr Sequeira
[2018-10-16 13:49] LABS: Hematocrit 32 % (35-47); Hemoglobin 10.7 g/dl (12.0-16.0)
[2018-10-16] MEDS ORDERED: NS 0.9% 1000 ML** 1,000 ML IV ONE (14:25)
[2018-10-16] MEDS ORDERED: traZODone TAB* 100 MG PO PRN (14:28)
--- NOTE | 2018-10-16 14:36 | PN ---
Progress Note - Progress Note Date of Service: 10/16/18 Note: Pt reports feeling thirsty. She had additional BM which is dark and watery. No clots. Reports u/o less. RN reports due to elevated sBP she is being worked up for transfusion reaction. AVSS Sleeping but arousable. NAD Laboratory Results - last 24 hr 10/16/18 10/16/18 10/16/18 05:21 05:21 09:04 WBC 14.7 H RBC 4.12 Hgb 11.6 L 10.6 L Hct 35 32 L MCV 85 MCH 28 MCHC 33 RDW 14 Plt Count 375 MPV 7.1 L Neut % (Auto) 79.3 Lymph % (Auto) 14.2 [place] % (Auto) 5.8 Eos % (Auto) 0.1 Baso % (Auto) 0.6 Absolute Neuts (auto) 11.7 H Absolute Lymphs (auto) 2.1 Absolute Monos (auto) 0.9 H Absolute Eos (auto) 0 Absolute Basos (auto) 0.1 Absolute Nucleated RBC 0 Nucleated RBC % 0 Blood Type O Positive Antibody Screen Negative Crossmatch See Detail Transfusion React Rpt Donor Unit # Post-Trans Blood Type Post-Trans KRAIG 10/16/18 10/16/18 12:59 13:46 WBC RBC Hgb 10.7 L Hct 32 L MCV MCH MCHC RDW Plt Count MPV Neut % (Auto) Lymph % (Auto) [place] % (Auto) Eos % (Auto) Baso % (Auto) Absolute Neuts (auto) Absolute Lymphs (auto) Absolute Monos (auto) Absolute Eos (auto) Absolute Basos (auto) Absolute Nucleated RBC Nucleated RBC % Blood Type Antibody Screen Crossmatch Transfusion React Rpt Donor Unit # [id number] Post-Trans Blood Type O Positive Post-Trans KRAIG Negative A/P: postop GI bleed localized to J-J anastamosis on bleeding scan. She is stable. Due to concern for transfusion reaction will observe for now. H/H at 18:00. IVF bolus. Will allow ice chips and some po meds.
[2018-10-16] MEDS ORDERED: D5W 1/2 NS KCl 20 Meq 1000 ML* 1,000 ML IV SCH (15:32)
[2018-10-16] MEDS ORDERED: FLUoxetine CAP* 20 MG PO SCH (18:00)
[2018-10-16 18:06] LABS: Hematocrit 28 % (35-47); Hemoglobin 9.6 g/dl (12.0-16.0)
[2018-10-16] MEDS: buPROPion SR TAB.SR* 150 MG PO SCH (21:24)
[2018-10-16 22:14] LABS: Hematocrit 30 % (35-47); Hemoglobin 9.8 g/dl (12.0-16.0)
[2018-10-16 22:22] LABS: INR 1.06 (0.77-1.02)
--- NOTE | 2018-10-17 00:08 | PN ---
Progress Note - Progress Note Date of Service: 10/17/18 SOAP: Subjective: Pt seen and examined. c/o upper abdo pain and bloating, another bloody BM, no flatus no nausea, no dizziness Objective: HR 96, normotensive, afebrile abdo: soft/ obese, incisional tenderness labs noted Assessment: bleeding s/p RYGB, HD stable Plan: continue H and H; no transfusion for now
[2018-10-17] MEDS: HYDROmorphone INJ1* 1 MG/ML SYRINGE IV SLOW PU PRN ×3 (05:04→10:15)
[2018-10-17] MEDS: Levothyroxine TAB* 100 MCG TAB PO SCH (05:07)
[2018-10-17] MEDS: Lactated Ringers 1000 ML Bag* 1,000 ML IV SCH ×2 (06:15→13:55)
[2018-10-17 07:51] LABS: ABS Basophils 0 10^3/ul (0-0.2); ABS Eosinophils 0 10^3/ul (0-0.6); ABS Monocytes 0.6 10^3/ul (0-0.8); ABS Neutrophils 5.2 10^3/ul (1.5-7.7); ABS Nucleated RBC 0 10^3/ul; Eosinophil % 0.4 %; Hematocrit 23 % (35-47); Hemoglobin 7.6 g/dl (12.0-16.0); Lymphocyte % 25.5 %; Mean Corpuscular HGB Conc 33 g/dl (31-36); Mean Corpuscular Hemoglobin 29 pg (27-31); Mean Corpuscular Volume 86 fL (80-97); Mean Platelet Volume 7.1 fL (7.4-10.4); Nucleated Red Blood Cells % 0; Platelet Count 223 10^3/ul (150-450); Red Blood Count 2.69 10^6/ul (4.00-5.40); Red Cell Distribution Width 15 % (10.5-15); White Blood Count 7.9 10^3/ul (3.5-10.8)
--- NOTE | 2018-10-17 09:42 | PN ---
Progress Note - Progress Note Date of Service: 10/17/18 SOAP: Subjective: Mild back pain, "gas". No significant abdominal pain. Denies lightheaded/ dizzy. Less bloody BMs overnight. Objective: Vital Signs Temp 98.4 F 10/17/18 08:16 Pulse 83 10/17/18 08:16 Resp 20 10/17/18 08:16 BP 118/52 10/17/18 08:16 Pulse Ox 93 10/17/18 08:40 Gen: NAD; sleeping, easily arousable. Abd: incisions c/d/i; no erythema; no ecchymosis; soft; min tender. Intake & Output 10/16/18 10/17/18 10/17/18 18:59 06:59 18:59 Intake Total 3925 3121 Output Total 950 800 500 Balance 2975 2321 -500 Intake: IV Fluids 2895 2971 LR 1896 2971 NS 999 IVPB 990 LR 990 Oral 40 150 Output: Urine 0 400 400 Liquid Stool 950 400 100 Other: # Bowel Movements 1 Estimated Stool Amount Medium Laboratory Results - last 24 hr 10/16/18 10/16/18 10/16/18 05:21 12:59 13:46 WBC RBC Hgb 10.7 L Hct 32 L MCV MCH MCHC RDW Plt Count MPV Neut % (Auto) Lymph % (Auto) [place] % (Auto) Eos % (Auto) Baso % (Auto) Absolute Neuts (auto) Absolute Lymphs (auto) Absolute Monos (auto) Absolute Eos (auto) Absolute Basos (auto) Absolute Nucleated RBC Nucleated RBC % INR (Anticoag Therapy) B-Natriuretic Peptide Blood Type O Positive Antibody Screen Negative Crossmatch See Detail Transfusion React Rpt Donor Unit # [id number] Post-Trans Blood Type O Positive Post-Trans KRAIG Negative 10/16/18 10/16/18 10/16/18 17:53 22:05 22:05 WBC RBC Hgb 9.6 L 9.8 L Hct 28 L 30 L MCV MCH MCHC RDW Plt Count MPV Neut % (Auto) Lymph % (Auto) [place] % (Auto) Eos % (Auto) Baso % (Auto) Absolute Neuts (auto) Absolute Lymphs (auto) Absolute Monos (auto) Absolute Eos (auto) Absolute Basos (auto) Absolute Nucleated RBC Nucleated RBC % INR (Anticoag Therapy) 1.06 H B-Natriuretic Peptide Blood Type Antibody Screen Crossmatch Transfusion React Rpt Donor Unit # Post-Trans Blood Type Post-Trans KRAIG 10/17/18 10/17/18 07:36 07:37 WBC 7.9 RBC 2.69 L Hgb 7.6 L Hct 23 L MCV 86 MCH 29 MCHC 33 RDW 15 Plt Count 223 MPV 7.1 L Neut % (Auto) 65.6 Lymph % (Auto) 25.5 [place] % (Auto) 8.1 Eos % (Auto) 0.4 Baso % (Auto) 0.4 Absolute Neuts (auto) 5.2 Absolute Lymphs (auto) 2.0 Absolute Monos (auto) 0.6 Absolute Eos (auto) 0 Absolute Basos (auto) 0 Absolute Nucleated RBC 0 Nucleated RBC % 0 INR (Anticoag Therapy) B-Natriuretic Peptide 5 Blood Type Antibody Screen Crossmatch Transfusion React Rpt Donor Unit # Post-Trans Blood Type Post-Trans KRAIG Active Medications Generic Name Dose Route Start Last Admin Trade Name Freq PRN Reason Stop Dose Admin Albuterol 2 puff 10/15/18 15:35 Ventolin Hfa Inhaler* INH Q6H PRN SOB/WHEEZING Bupropion HCl 150 mg 10/16/18 21:00 10/16/18 21:24 Wellbutrin Sr Tab* PO Not Given BID JEET Dimenhydrinate 25 mg 10/15/18 18:13 10/15/18 19:14 Dramamine Iv* IV PUSH 25 mg Q6H PRN Administration NAUSEA/VOMITING Diphenhydramine HCl 25 mg 10/15/18 15:28 Benadryl Iv* SLOW PUSH Q6H PRN ITCHING Famotidine 20 mg 10/15/18 21:00 10/16/18 21:25 Pepcid Iv* IV SLOW PU 20 mg BID JEET Administration Fluoxetine HCl 40 mg 10/16/18 18:00 10/16/18 18:38 Prozac Cap* PO Not Given QPM JEET Hydromorphone HCl 0.5 mg 10/15/18 15:37 10/17/18 07:32 Dilaudid Inj1s* IV SLOW PU 0.5 mg Q2H PRN Administration PAIN Lactated Ringer's 1,000 mls @ 150 mls/hr 10/15/18 16:00 10/17/18 06:15 Lactated Ringers 1000 Ml Bag* IV 150 mls/hr PER RATE JEET Administration Levothyroxine Sodium 200 mcg 10/17/18 06:00 10/17/18 05:07 Synthroid Tab* PO Not Given 0600 JEET Ondansetron HCl 4 mg 10/15/18 15:28 10/16/18 15:05 Zofran Inj* IV 4 mg Q6H PRN Administration NAUSEA/VOMITING Trazodone HCl 100 mg 10/16/18 14:28 Desyrel Tab* PO BEDTIME PRN INSOMNIA Assessment: POD#2 s/p LRYGB. GIB postop. HD stable. Plan: Adv diet. Follow H/H. Follow u/o. Possible d/c tomorrow.
[2018-10-17] MEDS: Famotidine IV* 10 MG/ML 2 ML (20 mg) IV SLOW PU SCH ×2 (10:14→20:26)
[2018-10-17] MEDS ORDERED: HYDROcodone/ACET. 7.5/325 LIQ* 15 ML UDC PO PRN (10:43)
[2018-10-17] MEDS: buPROPion SR TAB.SR* 150 MG PO SCH ×2 (13:31→20:23)
[2018-10-17 14:19] LABS: Hematocrit 22 % (35-47); Hemoglobin 7.5 g/dl (12.0-16.0)
[2018-10-17] MEDS ORDERED: Acetaminophen ADULT LIQ* 650 MG/20.3 ML UDC PO PRN (15:45)
[2018-10-17] MEDS: D5W 1/2 NS KCl 20 Meq 1000 ML* 1,000 ML IV SCH (17:38)
[2018-10-17] MEDS ORDERED: FLUoxetine CAP* 20 MG PO SCH (21:00)
[2018-10-18] MEDS: HYDROmorphone INJ1* 1 MG/ML SYRINGE IV SLOW PU PRN ×2 (04:52→08:44)
[2018-10-18] MEDS: D5W 1/2 NS KCl 20 Meq 1000 ML* 1,000 ML IV SCH (04:55)
[2018-10-18] MEDS: Levothyroxine TAB* 100 MCG TAB PO SCH (05:13)
[2018-10-18 05:39] LABS: Hematocrit 21 % (35-47)
[2018-10-18] MEDS ORDERED: SUMAtriptan SQ* 6 MG/0.5 ML VIAL SUBCUT ONE (08:31)
[2018-10-18] MEDS: Famotidine IV* 10 MG/ML 2 ML (20 mg) IV SLOW PU SCH (08:45)
[2018-10-18] MEDS: buPROPion SR TAB.SR* 150 MG PO SCH (08:49)
[2018-10-18] MEDS ORDERED: HYDROcodone/ACET. 7.5/325 LIQ* 15 ML UDC PO PRN (10:52)
[2018-10-18 11:58] VITALS: BP 138/88
[2018-10-18] MEDS ORDERED: HYDROcodone/ACETAMIN 5-325 MG* 1 TAB PO PRN (12:07)
--- NOTE | 2018-10-18 22:24 | DS ---
CC: Dr. Fabián Melton at [facility] * DISCHARGE SUMMARY: DATE OF ADMISSION: 10/15/18 DATE OF DISCHARGE: 10/18/18 ATTENDING SURGEON: Dr. Reagan Sequeira.* (DICTATED BY NESS JONES) HOSPITAL COURSE: Please refer to admission history and physical and operative note for details. The patient was taken to the operating room on 10/15/18 and underwent laparoscopic Kike-en-Y gastric bypass with Dr. Sequeira. Postoperatively, she was noted to be tachycardic and had passage of significant amounts of dark stool. A bleeding scan was positive, and it was suspected that she had had bleeding from the jejunojejunostomy. Her heparin and Toradol were held. She was given 1 unit of blood and followed with serial H and H. Her hemoglobin did decline from 11.6 to a low today of 7.0, though over the past 24 hours she has had much less in terms of lower GI output and has had stable vital signs and has been asymptomatic in terms of lightheadedness. She has been up and ambulating. She has not been having any abdominal cramping. She has been tolerating bariatric clear liquids. She was seen earlier this morning by Dr. Sequeira for exam. Vital signs as of around noon today, temperature 98.3, blood pressure 138/88, pulse 86, respirations 16, room air saturation 100%. She also had significant headache late yesterday and this morning and was given Imitrex with positive results (she had had prior headaches years ago which had also responded to Imitrex and therefore a prescription will be sent to her pharmacy). She will resume her usual medications, though will hold her metformin and hydrochlorothiazide and triamterene until seen for followup next week. We will also obtain a repeat H and H on 10/23/18. I believe she has a followup scheduled with Dr. Sequeira at [facility] on 10/24/18. The patient is discharged home in good condition. NESS JONES [id number]/[facility] #: [id number] [facility]
== END 2018-10-18 15:30 | disposition home or self-care (01) | DRG 403 ==
LOC: OR 11:09 → SSU 15:28
PROVIDERS: ADMIT Surgery; ATTEND Surgery
PROC: 0D164ZA Bypass Stomach to Jejunum, Percutaneous Endoscopic Approach (ICD-10-PCS; principal; 2018-10-15 13:00)
PROC: 30233N1 Transfusion of Nonautologous Red Blood Cells into Peripheral Vein, Percutaneous Approach (ICD-10-PCS; 2018-10-16)
DX: E66.01 Morbid (severe) obesity due to excess calories (principal); K95.89 Other complications of other bariatric procedure; K92.2 Gastrointestinal hemorrhage, unspecified; Z68.43 Body mass index [BMI] 50.0-59.9, adult; G47.33 Obstructive sleep apnea (adult) (pediatric); M17.0 Bilateral primary osteoarthritis of knee; E28.2 Polycystic ovarian syndrome; I10 Essential (primary) hypertension; K44.9 Diaphragmatic hernia without obstruction or gangrene; E03.9 Hypothyroidism, unspecified; G43.909 Migraine, unspecified, not intractable, without status migrainosus; F41.8 Other specified anxiety disorders; N92.6 Irregular menstruation, unspecified; J45.20 Mild intermittent asthma, uncomplicated; G47.00 Insomnia, unspecified; R00.0 Tachycardia, unspecified; Y83.8 Other surgical procedures as the cause of abnormal reaction of the patient, or of later complication, without mention of misadventure at the time of the procedure; Y92.239 Unspecified place in hospital as the place of occurrence of the external cause; Z82.49 Family history of ischemic heart disease and other diseases of the circulatory system; Z80.49 Family history of malignant neoplasm of other genital organs; Z82.61 Family history of arthritis; Z83.49 Family history of other endocrine, nutritional and metabolic diseases; Z80.8 Family history of malignant neoplasm of other organs or systems
CPT/HCPCS: 36415; 43644; 78278; 81025; 83880; 85014; 85018; 85025; 85610; 86078; 86850; 86900; 86901; 86922; A9270-GY; A9512; A9538; J0330; J0690; J1100; J1170; J1240; J1644; J1885; J2250; J2405; J2704; J3010; J3030; P9040

== ENCOUNTER 2018-11-04 18:17 | Emergency (ER) | payer OTHER ==
--- NOTE | 2018-11-04 18:46 | UC ---
Throat Pain/Nasal Robert HPI - HPI Summary HPI Summary: 28 yo female presents with dizziness and feeling fatigued for the last 2-3 weeks. She had a RNY bariatric surgery on 10/16 and her symptoms have been present ever since that time. She tells me hat her surgery/hospital stay was complicated by a J-J anastomotic bleed that cause her to have bloody stools and become anemic requiring a blood transfusion. Her last cbc was on 10/21 and Hgb was 9.1 and Hct was 27%. She last saw her surgeon about a week ago. She is currently on a liquid diet. States that her urine is dark and she feels dehydrated. She is currently on amoxicillin for a double ear infection. She has had no more episodes of blood in her stool or dark stools. Denies SOB, chest pain, abdominal pain, vomiting, diarrhea, dysuria. No episodes of syncope. - History of Current Complaint Stated Complaint: EAR ACHE Time Seen by Provider: 11/04/18 18:46 Hx Obtained From: Patient Hx Last Menstrual Period: unknown Onset/Duration: Gradual Onset Severity: Moderate Pain Intensity: 5 Pain Scale Used: 0-10 Numeric - Allergies/Home Medications Allergies/Adverse Reactions: Allergies Allergy/AdvReac Type Severity Reaction Status Date / Time ibuprofen Allergy GI Upset Verified 11/04/18 18:58 PMH/Surg Hx/FS Hx/Imm Hx - Additional Past Medical History Additional PMH: Gastric bypass Anemia s/p RNY PRBC transfusion - Surgical History Surgical History: Yes Surgery Procedure, Year, and Place: right wrist. appendectomy. gall bladder. - Family History Known Family History: Positive: Cardiac Disease, Hypertension, Diabetes - Social History Lives: With Family Alcohol Use: Occasionally Substance Use Type: None Smoking Status (MU): Never Smoked Tobacco Have You Smoked in the Last Year: No - Immunization History Most Recent Influenza Vaccination: 2014 Most Recent Tetanus Shot: 06/03/14 Most Recent Pneumonia Vaccination: na Review of Systems All Other Systems Reviewed And Are Negative: Yes Constitutional: Positive: Fatigue Skin: Positive: Negative Eyes: Positive: Negative ENT: Positive: Ear Ache Respiratory: Positive: Negative Cardiovascular: Positive: Negative Gastrointestinal: Positive: Negative Neurovascular: Positive: Negative Neurological: Positive: Other - Dizziness Psychological: Positive: Negative Physical Exam - Summary Physical Exam Summary: GENERAL: NAD. WDWN. No pain distress. SKIN: Surgical incisions on abdomen appearing to be healed/healing well with no erythema, edema, or drainage. No pallor to skin, conjunctiva, or oral mucosa. HEENT: Head: AT/NC Eyes: EOM intact. Conjunctiva clear without inflammation or discharge. Ears: Hearing grossly normal. TMs intact, no bulging, erythema, or edema. Nose: Nasal mucosa pink and moist. NTTP maxillary and frontal sinus. Throat: Posterior oropharynx without exudates, erythema, or tonsillar enlargement. Uvula midline. NECK: Supple. Nontender. No lymphadenopathy. CHEST: CTAB. No r/r/w. No accessory muscle use. Breathing comfortably and in no distress. CV: RRR. Without m/r/g. Pulses intact. Cap refill <2seconds ABDOMEN: Soft. NTTP. No distention or guarding. No CVA tenderness. Bowel sounds present NEURO: Alert. PSYCH: Age appropriate behavior. Triage Information Reviewed: Yes Vital Signs: Vital Signs: Temp Pulse Resp BP Pulse Ox 97.7 F 79 18 121/77 98 11/04/18 18:53 11/04/18 18:53 11/04/18 18:53 11/04/18 18:53 11/04/18 18:53 Laboratory Tests 11/04/18 19:28 POC Urine Color Dark yellow POC Urine Clarity Slightly cloudy POC Urine pH 5.5 POC Ur Specif Dewitt >= 1.030 POC Urine Protein 1+ A POC Ur Glucose (UA) Negative POC Urine Ketones 2+ A POC Urine Blood Negative POC Urine Nitrite Negative POC Urine Bilirubin 1+ A POC Urine Urobilinogen 1.0 POC U Leukocyte Esteras Negative Vital Signs Reviewed: Yes Re-Evaluation - Re-Evaluation First Eval Re-Evaluation Time: 20:52 Change: Improved Comment: Feeling much better overall s/p 1L NS. Resting comfortably on stretcher texting. Throat Pain/Nasal Course/Dx - Course Course Of Treatment: Suspect she is adapting to her new diet and lifestyle s/p bariatric surgery. I do believe there is some degree of dehydration, therefore pt was given 1.5L NS in the clinic which significantly improved her symptoms and she felt much better. In regards to her recent anemia - she appears stable today, but a CBC was drawn to further assess her H+H. UA was negative for infection. - Differential Dx/Diagnosis Provider Diagnosis: Dizziness, Bariatric surgery status Discharge - Sign-Out/Discharge Documenting (check all that apply): Patient Departure All imaging exams completed and their final reports reviewed: No Studies - Discharge Plan Condition: Stable Disposition: HOME Patient Education Materials: Dehydration (ED), Nutrition after Bariatric Surgery (DC) Referrals: Fabián Melton MD [Primary Care Provider] - Additional Instructions: If you develop a fever, shortness of breath, chest pain, new or worsening symptoms - please call your PCP or go to the ED. I suspect most of your symptoms are related to your recent surgery and new lifestyle/diet change as well as some degree of dehydration. You were given IV fluids in the clinic, which improved your symptoms. If your symptoms worsen - please go to the ED. - Billing Disposition and Condition Condition: STABLE Disposition: Home
[2018-11-04 18:58] VITALS: BP 121/77
[2018-11-04] MEDS ORDERED: NS 0.9% 1000 ML** 1,000 ML IV ONE (19:07)
[2018-11-04] MEDS ORDERED: NS 0.9% 1000 ML** 500 ML IV ONE (21:07)
--- NOTE | 2018-11-05 09:49 | UC ---
- Progress Note Progress Note: CBC was obtained due to pt's hx of anemia requiring transfusion On 10/21 Hgb was 9.1 and Hct was 27 Today Hgb 9.8 and Hct 31 Improved. No change. Course/Dx - Diagnoses Provider Diagnoses: Dizziness, Bariatric surgery status Discharge - Sign-Out/Discharge Documenting (check all that apply): Post-Discharge Follow Up All imaging exams completed and their final reports reviewed: No Studies - Discharge Plan Condition: Stable Disposition: HOME Patient Education Materials: Dehydration (ED), Nutrition after Bariatric Surgery (DC) Referrals: Fabián Melton MD [Primary Care Provider] - Additional Instructions: If you develop a fever, shortness of breath, chest pain, new or worsening symptoms - please call your PCP or go to the ED. I suspect most of your symptoms are related to your recent surgery and new lifestyle/diet change as well as some degree of dehydration. You were given IV fluids in the clinic, which improved your symptoms. If your symptoms worsen - please go to the ED. - Billing Disposition and Condition Condition: STABLE Disposition: Home
== END 2018-11-04 22:11 | disposition home or self-care (01) ==
LOC: UCEAST 18:17
DX: R42 Dizziness and giddiness (principal); Z98.84 Bariatric surgery status
CPT/HCPCS: 81003; 96360; 96361; 99211; G0463

== ENCOUNTER 2018-12-23 20:19 | Emergency (ER) | payer MEDICAID, OTHER ==
--- OUTSIDE RECORDS SUMMARY | 2018-12-23 20:25 | XMS REPORT | Continuity of Care Document ---
:1990 External Reference #:[id number] Author Name Billy Roach MD Address [address] [place] [address] Care Team Providers Name Role Phone Geronimo MENDIOLA, Fabián Primary Care Physician Unavailable Payers Date Identification Numbers Payment Provider Subscriber Policy Number: [id number] [facility] Ashley Otero Group Number: [id number] [address] PayID: [id number] [place] [address] Advance Directives Description No Information Available Problems Description No Information Family History Date Family Member(s) Observation Comments Mother Skin Cancer First Brother Asthma Paternal Grandmother Skin Cancer Social History Type Date Description Comments Sex Unknown 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 Cigarette Use Never smoked cigarettes Cigars Has never smoked cigars Pipe Has never smoked a pipe Smokeless Tobacco Has never used smokeless tobacco Alcohol Does not drink alcohol Tobacco Use Start: Unknown Patient has never smoked Smoking Status Reviewed: 12/19/18 Patient has never smoked Allergies, Adverse Reactions, Alerts Description No Known Drug Allergies Medications Active Medications SIG Qnty Indications Ordering Provider Date Levothyroxine Sodium Unknown 150mcg Tablets Vitamin E as directed Unknown 400Unit Capsules Vitamin C take as directed Unknown 500mg Tablets Iron as directed Unknown 325(65Fe) mg Tablets History Medications Singulair take one tablet 30tabs 477.0 [place] 12/23/2007 - 10mg Tabs by mouth daily Eric Monterroso 12/19/2018 Xyzal take one tablet 30tabs [place] 09/12/2007 - 5mg Tabs by mouth daily Eric Monterroso 12/19/2018 Imitrex 1 po prn headache 12tabs [place] 08/21/2007 - 100mg may repeat in 2 Eric Monterroso 01/12/2009 Tablets hours as needed Imitrex take 1 po prn [place] 08/21/2007 - 100mg headache may Eric Monterroso 01/12/2009 Tablets repeat x 1 she may take it at school. Fexofenadine 1 po qd 30tabs 477.0 [place] 06/19/2006 - 180mg Eric Monterroso 11/26/2007 Tablets Ibuprofen 2 po q4h prn 477.0 [place] 06/19/2006 - 200mg headache at Eric Monterroso 01/12/2009 Capsules school as needed Imitrex Nasal [place] 1 intranasal prn [place] 10/10/2005 - headache may Eric Monterroso 01/12/2009 5mg Solution repeat in 2 hours if needed at school Axert 1 PO prn 12tabs 346.90 [place] 08/10/2005 - 12.5mg Headache, December Eric Monterroso 10/10/2005 Tablets Repeat In 2 Hours If Needed Ibuprofen Unknown 08/09/2005 - 08/21/2007 None Unknown 03/20/2005 - 06/19/2006 Immunizations Description No Information Available Vital Signs Date Vital Result Comment 12/19/2018 10:35am Weight 282.00 lb Weight 127.915 kg Height 63 inches 5'3" Height in cm's 160.0 cm BMI (Body Mass Index) 49.9 kg/m2 01/12/2009 10:24am BP Systolic 132 mmHg BP Diastolic 91 mmHg Heart Rate 69 /min Respiratory Rate 16 /min 12/23/2007 2:12pm BP Systolic 126 mmHg BP Diastolic 83 mmHg Heart Rate 54 /min Respiratory Rate 20 /min 11/26/2007 9:40am BP Systolic 130 mmHg BP Diastolic 87 mmHg Heart Rate 68 /min Respiratory Rate 24 /min 06/19/2006 3:44pm BP Systolic 117 mmHg BP Diastolic 72 mmHg Heart Rate 83 /min Respiratory Rate 16 /min 03/21/2005 9:27am BP Systolic 135 mmHg BP Diastolic 69 mmHg Heart Rate 69 /min Respiratory Rate 16 /min Results Test Date Facility Test Result H/L Range Note Laboratory test 01/09/2006 [facility] Other lab normal finding c/o Department [place] [address] note [phone] Procedures Date Code Description Status 12/19/2018 61258 Tympanometry Completed 12/19/2018 55373 Comprehensive Audiogram Completed 12/16/2007 05016 Prick Test Completed 12/16/2007 22693 Prick Test Completed 10/20/2005 30970 Prick Test Completed 03/30/2005 43226 Pre- Or Post-Op Visit Completed 03/24/2005 09606 Closed Reduction Of Nasal Fracture Completed Encounters Type Date Location Provider Dx Diagnosis Office Visit 12/19/2018 [facility] Billy Moran H92.03 Otalgia, bilateral 10:45a 08/13/07 MD Marley H93.293 Other abnormal auditory perceptions, bilateral Office Visit 06/14/2009 3:30p [facility] 08/13/07 Robert 477.0 Rhinitis , Martha GENERAL INTERN Seasonal -Allergic Due To Pollen 477.8 Rhinitis, Perennial, Allergy Office Visit 01/12/2009 [facility] [place] 802.0 Fracture, Nasal 11:00a 08/13/07 Eric Monterroso - Close 478.19 Mucocele Of Sinus/Perf Nasal Septum 478.1-4 Obstruction Of Nasal Airway 293.83 Mood Disorder In Conditions Classified Elsewhere Office Visit 12/23/2007 2:15p [facility] 08/13/07 Robert 477.0 Rhinitis , Martha GENERAL INTERN Seasonal -Allergic Due To Pollen 477.8 Rhinitis, Perennial, Allergy 346.90 [place], W/O Mention Of Intractable/Unspecified Office Visit 11/26/2007 10:00a [facility] 08/13/07 Robert 477.9 Rhinitis , Martha GENERAL INTERN Allergic 346.90 Migr[place], W/O Mention Of Intractable/Unspecified Office Visit 08/21/2007 [facility] [place] 477.9 Rhinitis, 4:15p 08/13/07 Eric Monterroso Allergic 346.90 Migrane, W/O Mention Of Intractable/Unspecified Office 08/21/2006 [facility] [place] 346.90 Migr[place], W/O Mention Of Visit 4:15p 08/13/07 Jenniffer Monterroso/Kalyn Reyes Office 06/19/2006 [place] [place] 477.9 Rhinitis, Allergic Visit 4:00p 08/13/07 Eric Monterroso 346.90 Migrane, W/O Mention Of Intractable/Unspecified Office 10/10/2005 [facility] [place] 346.90 Ch[place]al[place], W/O Mention Of Visit 10:00a 08/13/07 Loc Intractable/Unspecified M.D. 478.1-4 Obstruction Of Nasal Airway 477.9 Rhinitis, Allergic Office 08/10/2005 [facility] [place] 346.90 Shivam, W/O Mention Of Visit 9:45a 08/13/07 Loc Intractable/Unspecified M.D. 478.1-4 Obstruction Of Nasal Airway 477.9 Rhinitis, Allergic Office Visit 03/21/2005 [facility] [place] 802.0 Fracture, Nasal 10:00a 08/13/07 Eric Monterroso - Close Plan of Treatment No Information Available
[2018-12-23 20:28] VITALS: BP 136/93
--- NOTE | 2018-12-23 20:33 | UC ---
Lower Extremity/Ankle HPI - HPI Summary HPI Summary: 28 y/o female presents to the urgent c/o left medial aspect of the mid foot radiating to the left ankle since 12/19/2018. Pt report she has Gastric By pass surgery on 10/15/2018. 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 She has developed a mild pain in the left foot at times, but since pain has worsen after wearing flip flop sandals, now painful w/ walking and standing. Denies any injury. Pain is 8/10 w/ walking and 4/10 at rest. She denies any numbness or tingling g or swelling over the left foot, denies calf pain, SOB, chest pain, abdominal pain, N/v/d. Pt also c/o of left breast lump she has noticed for past 2 months after the surgery. She doesn't know if it b/c she is loosing weight, but sometimes is painful. Pain at touch is 2/10. LMP: 2 years ago, but she has HX of PCOS. Pt denies fever or rashes or nipple discharge. No FMHX of breast cancer - History of Current Complaint Chief Complaint: UCLowerExtremity Stated Complaint: ANKLE INJURY Time Seen by Provider: 12/23/18 20:32 Hx Obtained From: Patient Hx Last Menstrual Period: 2 YEARS AGO (PT HAS PCOS) ?: No Onset/Duration: Gradual Onset, Lasting Days - 5 days, Still Present Severity Initially: Moderate Severity Currently: Moderate Pain Intensity: 8 Pain Scale Used: 0-10 Numeric Aggravating Factor(s): Standing, Ambulation Alleviating Factor(s): Rest, OTC Meds Able to Bear Weight: Yes - Risk Factors Gout Risk Factors: Negative DVT Risk Factors: Negative Septic Arthritis Risk Factor: Negative - Allergies/Home Medications Allergies/Adverse Reactions: Allergies Allergy/AdvReac Type Severity Reaction Status Date / Time ibuprofen Allergy GI Upset Verified 12/23/18 20:28 Home Medications: Home Medications Ascorbic Acid TAB* [Vitamin C TAB*] 500 mg PO DAILY 12/23/18 [History Confirmed 12/23/18] Ferrous Gluconate TAB* [Fergon TAB*] 325 mg PO DAILY 12/23/18 [History Confirmed 12/23/18] Multivitamin [Multivitamins] 1 each PO DAILY 12/23/18 [History Confirmed ] Vitamin E 12/23/18 [History] PMH/Surg Hx/FS Hx/Imm Hx Previously Healthy: Yes Other Endocrine History: PCOS, anemia - Surgical History Surgical History: Yes Surgery Procedure, Year, and Place: right wrist. appendectomy. gall bladder. . 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 - Family History Known Family History: Positive: Cardiac Disease, Hypertension, Diabetes - Social History Occupation: Unemployed Lives: With Family Alcohol Use: Rare Substance Use Type: None Smoking Status (MU): Never Smoked Tobacco Have You Smoked in the Last Year: No - Immunization History Most Recent Influenza Vaccination: 2014 Most Recent Tetanus Shot: 06/03/14 Most Recent Pneumonia Vaccination: na Review of Systems All Other Systems Reviewed And Are Negative: Yes Constitutional: Positive: Negative Skin: Positive: Negative Eyes: Positive: Negative ENT: Positive: Negative Respiratory: Positive: Negative Cardiovascular: Positive: Negative Gastrointestinal: Positive: Negative Genitourinary: Positive: Other - left breast w/ a painful lump Motor: Positive: Negative Neurovascular: Positive: Negative Musculoskeletal: Positive: Other: - left ankle and foot pain Neurological: Positive: Negative Psychological: Positive: Negative Is Patient Immunocompromised?: No Physical Exam - Summary Physical Exam Summary: Vital Signs Reviewed: Yes General : well developed, well nourished obese female w/o any apparent distress Eyes: Positive: Conjunctiva Clear - PERRLA, EOMI ENT: Positive: Normal ENT inspection, Hearing grossly normal, Pharynx normal, TMs normal Neck: Positive: Supple, Nontender, No Lymphadenopathy Respiratory: Positive: Chest non-tender, Lungs clear, Normal breath sounds, No respiratory distress Breast: breast are symmetric and have normal contour. Skin is of normal color and appearance; there are not edema, ulceration, or erythema. Nipples are of normal size and shape; there is no nipple retraction, ulceration or discharge. Palpation reveals a discrete movable mass about 0.4cm in size around 7 o'clock , mildly tender on palpation. Cardiovascular: Positive: RRR, No Murmur, Pulses Normal Abdomen Description: Positive: Nontender, No Organomegaly, Soft. Negative: CVA Tenderness (R), CVA Tenderness (L) Bowel Sounds: Positive: Present Musculoskeletal: Positive: Strength Intact, ROM Intact, No Edema, Left ankle and Foot/Toes: Pt is able to bear weight but ambulate with mild limping. LF ankle/foot :No surface trauma, ecchymosis, erythema, lesions, ulcers or break in skin integrity. The L ankle/foot is without obvious asymmetry or deformity when compared to the R . No bony step-off, No tenderness to palpation over toes , point tenderness over the medial aspect of mid foot and mid sole and tenderness of hindfoot, Decrease plantar/dorsiflexion, inversion/eversion due to pain. Distal motor and neurovascular status are intact. Neurological Exam: Normal Psychological Exam: Normal Skin Exam: Normal Triage Information Reviewed: Yes Vital Signs: Initial Vital Signs Temp 97.7 F 12/23/18 20:24 Pulse 79 12/23/18 20:24 Resp 16 12/23/18 20:24 BP 136/93 12/23/18 20:24 Pulse Ox 99 12/23/18 20:24 Lower Extremity Course/Dx - Course Course Of Treatment: 28 y/o female presents to the urgent c/o left medial aspect of the mid foot radiating to the left ankle since 12/19/2018. Pt report she has Gastric By pass surgery on 10/15/2018. About 2 week she started to do exercise on the [employer]. She has developed a mild pain in the left foot at times, but since pain has worsen after wearing flip flop sandals, now painful w/ walking and standing. Denies any injury. Pain is 8/10 w/ walking and 4/10 at rest. She denies any numbness or tingling g or swelling over the left foot, denies calf pain, SOB, chest pain, abdominal pain, N/v/d. Pt also c/o of left breast lump she has noticed for past 2 months after the surgery. She doesn't know if it b/c she is loosing weight, but sometimes is painful. Pain at touch is 2/10. LMP: 2 years ago, but she has HX of PCOS. Pt denies fever or rashes or nipple discharge. No FMHX of breast cancer. Hx obtained. Pt w/ possible Plantar fasciitis on examination. Pt's foot immobilized with yazan-bandage and given a post-op shoe to avoid flexion. Advised RICE, and advised to continue tking Tylenol PO since due to gastric by pass surgery she ip counsel't take ibuprofen. If not improvement of symptoms to f/u with Orthopedic DR referral from Sports medicine further evaluation and treatment. Pt's breast are symmetric and have normal contour. Skin is of normal color and appearance; there are not edema, ulceration, or erythema. Nipples are of normal size and shape; there is no nipple retraction, ulceration or discharge. Palpation reveals a discrete movable mass about 0.4cm in size around 7 o'clock , mildly tender on palpation on examination. Pt probably w/ fibrocystic benign disease. However, strongly advised to f/u in 2-3 days w/ her [facility] REPAIRER At [facility] for a breast US for further evaluation and treatment.Pt's BP is elevated today advised to decrease salt in diet, monitor BP and f/u with PCP for further management. D/C instructions explained. Pt left the clinic ambulating and hemodynamically stable, A&OX3 - Differential Dx/Diagnosis Differential Diagnosis/HQI/PQRI: Contusion, Dislocation, Fracture (Closed), Sprain, Strain, Tendonitis, Tenosynovitis, Other - fibrocystic disease, breast cancer Provider Diagnosis: Plantar fasciitis of left foot, Breast lump on left side at 7 o'clock position , Elevated BP without diagnosis of hypertension Discharge - Sign-Out/Discharge Documenting (check all that apply): Patient Departure - d/C home All imaging exams completed and their final reports reviewed: No Studies - Discharge Plan Condition: Stable Disposition: HOME Patient Education Materials: Plantar Fasciitis (ED), Fibrocystic Breast Changes (ED) Referrals: Fabián Melton MD [Primary Care Provider] - 1 Week [facility] [Provider Group] - 3 Days John Dodd MD [Medical Doctor] - 3 Days Additional Instructions: 1-Please continue taking Tylenol PO as directed to alleviate pain and swelling since you can't take Ibuprofen PO. 2-Please apply keep your foot immobilized with the Yazan bandage. 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 - Billing Disposition and Condition Condition: STABLE Disposition: Home
== END 2018-12-23 21:32 | disposition home or self-care (01) ==
LOC: UCEAST 20:19
DX: M72.2 Plantar fascial fibromatosis (principal); N63.24 Unspecified lump in the left breast, lower inner quadrant; R03.0 Elevated blood-pressure reading, without diagnosis of hypertension; Z87.898 Personal history of other specified conditions; Z98.890 Other specified postprocedural states; Z98.84 Bariatric surgery status
CPT/HCPCS: 99212; G0463

== ENCOUNTER 2018-12-24 18:23 | Emergency (ER) | payer OTHER ==
[2018-12-24] MEDS ORDERED: Ondansetron INJ* 2 MG/ML VIAL IV ONE (18:35)
[2018-12-24] MEDS ORDERED: NS 0.9% 1000 ML** 2,000 ML IV ONE (18:35)
--- NOTE | 2018-12-24 19:16 | ED ---
Abdominal Pain/Female - HPI Summary HPI Summary: Pt is a 28 y/o female who presents to the ED c/o abdominal pain. This morning she began to have sharp stabbing pain to her LLQ. Pain is constant and is rated an 8/10 in severity. Pt had Kike-en-y gastric bypass surgery on 10/15/[address] Sequeira, and since then has had constant diarrhea and intermittent vomiting. Pt also notes nausea today but denies any current vomiting or diarrhea. She also denies any hematochezia, dysuria, WILLARD, CP, fever, cough, or BLE numbness. PSHx appendectomy, cholecystectomy, . - History of Current Complaint Chief Complaint: EDAbdPain Stated Complaint: ABD PAIN PER PT Time Seen by Provider: 12/24/18 19:11 Hx Obtained From: Patient Hx Last Menstrual Period: 2 YEARS AGO (PT HAS PCOS) Onset/Duration: Gradual Onset, Lasting Hours - This morning, Still Present Timing: Constant Severity Currently: Severe Pain Intensity: 8 Pain Scale Used: 0-10 Numeric Location: Discrete At: LLQ Character: Sharp - stabbing Associated Signs and Symptoms: Positive: Nausea, Diarrhea. Negative: Fever, Cough, Vomiting Allergies/Adverse Reactions: Allergies Allergy/AdvReac Type Severity Reaction Status Date / Time ibuprofen Allergy GI Upset Verified 12/24/18 18:39 PMH/Surg Hx/FS Hx/Imm Hx Endocrine/Hematology History: Reports: Hx Thyroid Disease - hypo Denies: Hx Diabetes Cardiovascular History: Reports: Hx Hypertension Denies: Hx Congestive Heart Failure, Hx Pacemaker/ICD, Other Cardiovascular Problems/Disorders Respiratory History: Reports: Hx Sleep Apnea Denies: Hx Asthma, Hx Chronic Obstructive Pulmonary Disease (COPD), Other Respiratory Problems/Disorders GI History: Denies: Hx Ulcer, Other GI Disorders History: Denies: Other Problems/Disorders Musculoskeletal History: Reports: Hx Tendonitis - right arm Denies: Other Musculoskeletal History Sensory History: Denies: Hx Contacts or Glasses, Hx Hearing Aid Opthamlomology History: Denies: Hx Contacts or Glasses Neurological History: Reports: Hx Migraine - 2 MIGRAINES A WEEK Denies: Other Neuro Impairments/Disorders Psychiatric History: Reports: Hx Anxiety, Hx Depression Denies: Other Psychiatric Issues/Disorders - Surgical History Surgery Procedure, Year, and Place: right wrist. appendectomy. gall bladder. . 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 Hx Anesthesia Reactions: No - Immunization History Date of Tetanus Vaccine: UNK Date of Influenza Vaccine: UNK Infectious Disease History: No Infectious Disease History: Denies: Hx Clostridium Difficile, Hx Hepatitis, Hx Human Immunodeficiency Virus (HIV), Hx of Known/Suspected MRSA, Hx Shingles, Hx Tuberculosis, Hx Known/ Suspected VRE, Hx Known/Suspected VRSA, History Other Infectious Disease, Traveled Outside the [place] in Last 30 Days - Family History Known Family History: Positive: Cardiac Disease, Hypertension, Diabetes - Social History Alcohol Use: Rare Hx Substance Use: No Substance Use Type: Reports: None Hx Tobacco Use: No Smoking Status (MU): Never Smoked Tobacco Have You Smoked in the Last Year: No Review of Systems Negative: Fever Negative: Chest Pain Negative: Cough Positive: Abdominal Pain - LLQ, Vomiting - not today, past few weeks, Diarrhea - not today, past few weeks, Nausea. Negative: Other - hematochezia Negative: dysuria Negative: Headache, Numbness - BLE All Other Systems Reviewed And Are Negative: Yes Physical Exam - Summary Physical Exam Summary: Appearance: well appearing, no pain distress Skin: warm, dry, reflects adequate perfusion Head/face: normal Eyes: EOMI, MARITZA ENT: mucous membranes moist Neck: supple, non-tender Respiratory: CTA, breath sounds present Cardiovascular: RRR, pulses symmetrical Abdomen: non-tender, soft Bowel Sounds: present Musculoskeletal: normal, strength/ROM intact Neuro: normal, sensory motor intact, A&Ox3 Triage Information Reviewed: Yes Vital Signs On Initial Exam: Initial Vitals Temp Pulse Resp BP Pulse Ox 98.9 F 74 17 143/97 98 12/24/18 18:25 12/24/18 18:25 12/24/18 18:25 12/24/18 18:25 12/24/18 18:25 Vital Signs Reviewed: Yes Diagnostics - Vital Signs Vital Signs Temp Pulse Resp BP Pulse Ox 12/24/18 18:25 98.9 F 74 17 143/97 98 - Laboratory Result Diagrams: 12/24/18 19:06 12/24/18 19:06 Lab Statement: Any lab studies that have been ordered have been reviewed, and results considered in the medical decision making process. - CT CT A/P CT Interpretation Completed By: Radiologist Summary of CT Findings: No CT findings to correlate with patient's symptomatology. Expected appearance of patient's Kike-en-Y gastric bypass. ED physician reviewed radiology report. Re-Evaluation - Re-Evaluation First Eval Re-Evaluation Time: 22:15 Change: Improved Comment: Pt's pain is improved. Abdominal Pain Fem Course/Dx - Course Course Of Treatment: Patient is status post gastric bypass and has had chronic diarrhea since. Her electrolytes are normal and she is very well appearing without tenderness on exam. A CT scan is negative. She'll follow-up with her bariatric surgeon and was given Levsin for cramping. Her pain is better here after single dose of morphine. - Diagnoses Differential Diagnosis: Positive: Bowel Obstruction, Constipation, Ovarian Cyst , Pancreatitis, Other - Internal hernia Provider Diagnoses: History of gastric bypass, Chronic diarrhea, LLQ abdominal pain Discharge - Sign-Out/Discharge Documenting (check all that apply): Patient Departure - Discharge Patient Received Moderate/Deep Sedation with Procedure: No - Discharge Plan Condition: Improved Disposition: HOME Prescriptions: Hyoscyamine Sulfate 0.125 mg PO Q4H PRN #30 tab.rapdis PRN Reason: cramping Patient Education Materials: Kike-en-Y Gastric Bypass (GEN), Nutrition after Bariatric Surgery (DC), Kike-en-Y Gastric Bypass (DC) Referrals: Reagan Sequeira MD [Medical Doctor] - Fabián Melton MD [Primary Care Provider] - Additional Instructions: Drink plenty of fluids. Return with fever, increased pain, worsening diarrhea, new symptoms or other concerns. Call your bariatric surgeon tomorrow to schedule prompt follow-up. They may have some suggestions for your chronic diarrhea. - Billing Disposition and Condition Condition: IMPROVED Disposition: Home - Attestation Statements Document Initiated by Jayde: Yes Documenting Scribe: Alanna Walter Provider For Whom Jayde is Documenting (Include Credential): Vance Alicea MD Scribe Attestation: Alanna Sinha scribed for Vance Alicea MD on 12/25/18 at 0305. Scribe Documentation Reviewed: Yes Provider Attestation: The documentation as recorded by the Alanna collins accurately reflects the service I personally performed and the decisions made by , Vance Alicea MD Status of Scribe Document: Viewed
[2018-12-24 19:34] LABS: ALT 19 U/L (7-52); AST 14 U/L (13-39); Albumin 4.5 g/dL (3.2-5.2); Albumin/Globulin Ratio 1.7 (1-3); Alkaline Phosphatase 83 U/L (34-104); Anion Gap 5 mmol/L (2-11); BUN/Creatinine Ratio 12.9 (8-20); Blood Urea Nitrogen 9 mg/dL (6-24); CO2 Carbon Dioxide 27 mmol/L (22-32); Calcium 9.2 mg/dL (8.6-10.3); Chloride 109 mmol/L (101-111); EGFR African American 121.5 (>60); EGFR Non-African American 100.4 (>60); Globulin 2.7 g/dL (2-4); Glucose 94 mg/dL (70-100); Potassium 3.8 mmol/L (3.5-5.0); Sodium 141 mmol/L (135-145); Total Protein 7.2 g/dL (6.4-8.9)
[2018-12-24 19:40] LABS: HCG Pregnancy < 0.60 mIU/mL
[2018-12-24 19:43] LABS: ABS Basophils 0.1 10^3/ul (0-0.2); ABS Eosinophils 0.3 10^3/ul (0-0.6); ABS Lymphocytes 2.7 10^3/ul (1.0-4.8); ABS Monocytes 0.6 10^3/ul (0-0.8); ABS Neutrophils 5.2 10^3/ul (1.5-7.7); Eosinophil % 3.6 %; Hematocrit 33 % (35-47); Hemoglobin 10.5 g/dL (12.0-16.0); Lymphocyte % 30.1 %; Mean Corpuscular HGB Conc 32 g/dL (31-36); Mean Corpuscular Hemoglobin 23 pg (27-31); Mean Corpuscular Volume 71 fL (80-97); Mean Platelet Volume 8.2 fL (7.4-10.4); Platelet Count 329 10^3/uL (150-450); Red Blood Count 4.64 10^6 /uL (3.70-4.87); Red Cell Distribution Width 18 % (10.5-15); White Blood Count 8.8 10^3/uL (3.5-10.8)
[2018-12-24 19:50] LABS: Phosphorus 3.6 mg/dL (2.5-5.0)
[2018-12-24 19:56] LABS: Microcytosis 1+
[2018-12-24] MEDS ORDERED: Iohexol 300* (CONTRAST) 10 ML SDV IV ONE (20:09)
[2018-12-24 20:33] LABS: Urine Appearance Cloudy; Urine Bilirubin Negative (Negative); Urine Blood Negative (Negative); Urine Color Yellow; Urine Glucose Negative (Negative); Urine Ketones Negative (Negative); Urine Nitrite Negative (Negative); Urine Protein Negative (Negative); Urine Urobilinogen Negative (Negative)
[2018-12-24] MEDS ORDERED: Morphine 4 MG/ML VIAL (1 ml) 4 MG/ML VIAL IV ONE (20:33)
[2018-12-24] MEDS ORDERED: Hyoscyamine TAB* 0.125 MG PO ONE (22:02)
[2018-12-24 22:32] VITALS: BP 134/67
== END 2018-12-24 22:30 | disposition home or self-care (01) ==
LOC: ED 18:23
DX: R19.7 Diarrhea, unspecified (principal); R10.32 Left lower quadrant pain; I10 Essential (primary) hypertension; E03.9 Hypothyroidism, unspecified; F41.9 Anxiety disorder, unspecified; F32.9 Major depressive disorder, single episode, unspecified; Z88.6 Allergy status to analgesic agent; Z98.84 Bariatric surgery status
CPT/HCPCS: 36415; 74177; 80053; 81003; 83690; 84100; 84702; 85025; 96361; 96374; 96375; 99283; A9270-GY; J2270; J2405; Q9967

== ENCOUNTER 2019-05-28 16:00 | Emergency (ER) | payer OTHER ==
--- OUTSIDE RECORDS SUMMARY | 2019-05-28 16:09 | XMS REPORT | Continuity of Care Document ---
:1990 External Reference #:[id number] Author Name Viet Monterroso M.D. Address [address] [facility] [place] [address] Care Team Providers Name Role Phone Fabián Melton MD - Internal Care Team Information Restorative Coordinator [phone] Medicine Problems Description No Information Available Social History Type Date Description Comments Sex Unknown Tobacco Use Start: Unknown Patient has never smoked Smoking Status Reviewed: 05/25/19 Patient has never smoked Allergies, Adverse Reactions, Alerts Active Allergies Reaction Severity Comments Date Ibuprofen Nausea Gastric Bypass 04/28/2019 Inactive Allergies NKDA 03/21/2005 Medications Active Medications SIG Qnty Indications Ordering Provider Date Levothyroxine Sodium Unknown 150mcg Tablets Vitamin E as directed Unknown 400Unit Capsules Vitamin C take as directed Unknown 500mg Tablets Iron daily Unknown 325(65Fe) mg Tablets History Medications Ofloxacin 3 drops affected 15ml H92.11 [place] 04/28/2019 - (Ophthalmic) ear twice a day Eric Monterroso 05/18/2019 0.3% Solution Immunizations Description No Information Available Vital Signs Date Vital Result Comment 05/26/2019 3:12pm Weight 282.00 lb Weight 127.915 kg Height 63 inches 5'3" Height in cm's 160.0 cm BMI (Body Mass Index) 49.9 kg/m2 12/19/2018 10:35am Weight 282.00 lb Weight 127.915 kg Height 63 inches 5'3" Height in cm's 160.0 cm BMI (Body Mass Index) 49.9 kg/m2 Results Description No Information Available Procedures Date Code Description Status 12/19/2018 41176 Tympanometry Completed 12/19/2018 58288 Comprehensive Audiogram Completed Medical Devices Description No Information Available Encounters Type Date Location Provider Dx Diagnosis Office Visit 05/26/2019 [place],After [place] H92.11 Otorrhea, right 3:15p 08/13/07 Eric Monterroso ear J35.01 Chronic tonsillitis Office Visit 04/28/2019 1:45p [place],After 08/13/07 Tia Lowe H92.03 [place], ANUP Regalado bilateral H69.83 Other specified disorders of Eustachian tube, bilateral H92.11 Otorrhea, right ear J35.01 Chronic tonsillitis Office Visit 12/19/2018 10:45a [place],After 08/13/07 Billy Moran H92.03 Marley Avila MD bilateral H93.293 Other abnormal auditory perceptions, bilateral Assessments Date Code Description Provider 05/26/2019 H92.11 Otorrhea, right ear Viet Monterroso M.D. 05/26/2019 J35.01 Chronic tonsillitis Viet Monterroso M.D. 05/19/2019 H92.11 Otorrhea, right ear Viet Monterroso M.D. 04/28/2019 H92.03 Otalgia, bilateral Tia Regalado PA-C 04/28/2019 H69.83 Other specified disorders of Tia Regalado PA-C Eustachian tube, bilateral 04/28/2019 H92.11 Otorrhea, right ear Tia Regalado PA-C 04/28/2019 J35.01 Chronic tonsillitis Tia Regalado PA-C 12/19/2018 H92.03 Otalgia, bilateral Raghavendra Best MA, HARLEENA 12/19/2018 H92.03 Otalgia, bilateral Billy Roach MD 12/19/2018 H93.293 Other abnormal auditory perceptions, Raghavendra Best MA, CCC-A bilateral 12/19/2018 H93.293 Other abnormal auditory perceptions, Billy Roach MD bilateral Plan of Treatment No Information Available Functional Status Description No Information Available Mental Status Description No Information Available Referrals Description No Information Available
--- OUTSIDE RECORDS SUMMARY | 2019-05-28 16:09 | XMS REPORT | Continuity of Care Document ---
:1990 External Reference #:[id number] Author Name Abhijeet Bass MD (transmitted by agent of provider Tita Wakefield) Address [address] [place] [address] Problems Active Problems Provider Date Obstructive sleep apnea syndrome Katie Mendez DNP, RN, DIRECTOR OF CRITICAL CARE-BC Onset: Body mass index 40+ - severely Katie Mendez DNP, RN, DIRECTOR OF CRITICAL CARE-BC Onset: 2018 obese Social History Type Date Description Comments Sex Unknown Tobacco Use Start: Unknown Never Smoked Cigarettes Smoking Status Reviewed: 05/12/19 Never Smoked Cigarettes ETOH Use Denies alcohol use Tobacco Use Start: Unknown Patient has never smoked Recreational Drug Use Denies Drug Use Exercise Type/Frequency Exercises regularly [employer] 3 days weekly. Allergies, Adverse Reactions, Alerts Active Allergies Reaction Severity Comments Date Ibuprofen Avoids due to bypass surgery and 05/12/2019 erosive GERD Inactive Allergies NKDA 11/27/2012 Medications Active Medications SIG Qnty Indications Ordering Provider Date Opurity 2 tablets daily Abhijeet Bass, 05/12/2019 Tablets Levothyroxine Sodium take 3 tablets Unknown 11/01/2010 (300 mcg) once 100mcg Tablets daily Albuterol Sulfate 1 vial via Unknown nebulizer 4 times (2.5mg/3ML) 0.083% daily as needed Nebulizer Ferrous Gluconate Fabián Melton, 324(38Fe) mg Tablets C-Chewable Fabián Melton, 500mg Chewtabs Vitamin B12 1 by mouth every Unknown 1000mcg day Tablets ER Vitamin E-400 1 by mouth once a Unknown 400Unit day Capsules Immunizations Description No Information Available Vital Signs Date Vital Result Comment 05/12/2019 3:51pm Height 67 inches 5'7" Weight 250.00 lb Heart Rate 75 /min BP Systolic 117 mmHg BP Diastolic 78 mmHg O2 % BldC Oximetry 100 % BMI (Body Mass Index) 39.2 kg/m2 08/30/2018 8:40am Height 67 inches 5'7" Weight 348.50 lb Heart Rate 70 /min BP Systolic Sitting 130 mmHg Lue large cuff BP Diastolic Sitting 80 mmHg Lue large cuff Respiratory Rate 14 /min O2 % BldC Oximetry 97 % BMI (Body Mass Index) 54.6 kg/m2 Results Test Date Facility Test Result H/L Range Note CBC Auto 11/12/2018 [facility] White Blood 4.1 10^3/uL Normal 3.5-10.[address] [place] [address] [phone] Red Blood Count 3.80 10^6/uL Normal 3.70-4.87 Hemoglobin 9.7 g/dL Low 12.0-16.0 Hematocrit 30 % Low 33-41 Mean Corpuscular Volume 79 fL Low 80-97 Mean Corpuscular Hemoglobin 26 pg Low 27-31 Mean Corpuscular HGB Conc 33 g/dL Normal 31-36 Red Cell Distribution Width 16 % High 10.5-15 Platelet Count 226 10^3/uL Normal 150-450 Mean Platelet Volume 8.5 fL Normal 7.4-10.4 Abs Neutrophils 2.6 10^3/uL Normal 1.5-7.7 Abs Lymphocytes 1.0 10^3/uL Normal 1.0-4.8 Abs Monocytes 0.3 10^3/uL Normal 0-0.8 Abs Eosinophils 0.1 10^3/uL Normal 0-0.6 Abs Basophils 0 10^3/uL Normal 0-0.2 Abs Nucleated RBC 0 10^3/uL Granulocyte % 63.8 % Lymphocyte % 24.9 % Monocyte % 8.3 % Eosinophil % 2.3 % Basophil % 0.7 % Nucleated Red Blood Cells % 0.1 Comp Metabolic 11/12/2018 [facility] Sodium 140 mmol/L Normal 135-[address] [place] [address] [phone] Potassium 3.5 mmol/L Normal 3.5-5.0 Chloride 109 mmol/L Normal 101-111 Co2 Carbon Dioxide 22 mmol/L Normal 22-32 Anion Gap 9 mmol/L Normal 2-11 Glucose 85 mg/dL Normal 70-100 Blood Urea Nitrogen 10 mg/dL Normal 6-24 Creatinine 0.63 mg/dL Normal 0.51-0.95 BUN/Creatinine Ratio 15.9 Normal 8-20 Calcium 9.4 mg/dL Normal 8.6-10.3 Total Protein 6.5 g/dL Normal 6.4-8.9 Albumin 4.3 g/dL Normal 3.2-5.2 Globulin 2.2 g/dL Normal 2-4 Albumin/Globulin Ratio 2.0 Normal 1-3 Total Bilirubin 0.50 mg/dL Normal 0.2-1.0 Alkaline Phosphatase 56 U/L Normal 34-104 Alt 86 U/L High 7-52 Ast 47 U/L High 13-39 Egfr Non- 113.4 >60 Egfr 137.2 >60 1 Iron & Iron Binding 11/12/2018 [facility] Iron 18 g/dL Low 50-212 [address] [place] [address] [phone] Unsaturated Iron Binding < 429 g/dL Total Iron Binding Capacity 444 g/dL Normal 250-450 Transferrin 317 mg/dL Normal 203-362 % Iron Saturation 4 % Low 15-55 Laboratory test 11/12/2018 [facility] Ferritin 5.9 ng/mL Low 11-307 finding [address] [place] [address] [phone] Folic Acid (Folate) > 20.00 ng/mL >3.99 Vitamin B12 365 pg/mL Normal 180-914 2 Vitamin D Total 25(Oh) 52.6 ng/mL High 20-50 Vitamin E Level 4.3 mg/L Abnormal 5.5 - 17.0 3 Vitamin B1 (Whole Blood) 110 nmol/L 70-180 4 1 Because ethnic data is not always readily [...] 15-29 5 Kidney failure <15 (or dialysis) 2 Normal Range 180 to 914 Indeterminate Range 145 to 180 Deficient Range <145 3 ADDITIONAL INFORMATION This test was developed and its performance characteristics determined by [facility] in a manner consistent with CLIA requirements. This test has not been cleared or approved by the U.S. Food and Drug Administration. Test Performed by: [facility] - [address] [address] 4 ADDITIONAL INFORMATION This test was developed and its performance characteristics determined by [facility] in a manner consistent with CLIA requirements. This test has not been cleared or approved by the U.S. Food and Drug Administration. Test Performed by: [facility] - [address] [address] Procedures Description No Information Available Medical Devices Description No Information Available Encounters Description No Information Available Assessments Date Code Description Provider 05/12/2019 K29.71 Gastritis, unspecified, with bleeding Abhijeet Bass MD 05/12/2019 R10.13 Epigastric pain Abhijeet Bass MD 05/12/2019 D64.9 Anemia, unspecified Abhijeet Bass MD 05/12/2019 Z68.43 Body mass index (BMI) 50-59.9, adult Abhijeet Bass MD Plan of Treatment Future Appointment(s):06/09/2019 4:00 pm - Viktoria Hopkins NP at [facility] Iszsochbjisezcob48/30/2019 - Abhijeet Bass MDK29.71 Gastritis, unspecified, with bleedingNew Labs:CBC Auto Diff, Ordered: 05/12/19Comp Metabolic Panel, Ordered: 05/12/19C Reactive Protein, Ordered: 05/12/19Ferritin, Ordered: Iron & Iron Binding Capacity, Ordered: 05/12/19Vitamin B12, Ordered: 05/12R10.13 Epigastric painD64.9 Anemia, [id number] Body mass index (BMI) 50.0-59.9, adult Functional Status Description No Information Available Mental Status Description No Information Available Referrals Description No Information Available
--- OUTSIDE RECORDS SUMMARY | 2019-05-28 16:09 | XMS REPORT | Continuity of Care Document ---
:1990 External Reference #:[id number] Author Name Tia Regalado PA-C Address [address] [place] [address] Care Team Providers Name Role Phone Fabián Melton MD - Internal Care Team Information Proposition Player [phone] Medicine Problems Description No Information Available Social History Type Date Description Comments Sex Unknown Tobacco Use Start: Unknown Patient has never smoked Smoking Status Reviewed: 04/27/19 Patient has never smoked Allergies, Adverse Reactions, Alerts Active Allergies Reaction Severity Comments Date Ibuprofen Nausea Gastric Bypass 04/28/2019 Inactive Allergies NKDA 03/21/2005 Medications Active Medications SIG Qnty Indications Ordering Provider Date Ofloxacin (Ophthalmic) 3 drops affected 15ml H92.11 [place]. 04/28/2019 0.3% ear twice a day Eric Monterroso Solution Levothyroxine Sodium Unknown 150mcg Tablets Vitamin E as directed Unknown 400Unit Capsules Vitamin C take as directed Unknown 500mg Tablets Iron as directed Unknown 325(65Fe) mg Tablets Immunizations Description No Information Available Vital Signs Date Vital Result Comment 12/19/2018 10:35am Weight 282.00 lb Weight 127.915 kg Height 63 inches 5'3" Height in cm's 160.0 cm BMI (Body Mass Index) 49.9 kg/m2 01/12/2009 10:24am BP Systolic 132 mmHg BP Diastolic 91 mmHg Heart Rate 69 /min Respiratory Rate 16 /min Results Description No Information Available Procedures Date Code Description Status 12/19/2018 58231 Tympanometry Completed 12/19/2018 81106 Comprehensive Audiogram Completed Medical Devices Description No Information Available Encounters Type Date Location Provider Dx Diagnosis Office Visit 04/28/2019 [place],[facility] Tia Regalado, H92.03 Otalgia, bilateral 1:45p 08/13/07 [place]UP H69.83 Other specified disorders of Eustachian tube, bilateral H92.11 Otorrhea, right ear J35.01 Chronic tonsillitis Office Visit 12/19/2018 10:45a [place],After 08/13/07 Billy Moran H92.03 [place]alf[place], MD Mar[place] bilateral H93.293 Other abnormal auditory perceptions, bilateral Assessments Date Code Description Provider 04/28/2019 H92.03 Otalgia, bilateral Tia Regalado PA-C 04/28/2019 H69.83 Other specified disorders of Tia Regalado PA-C Eustachian tube, bilateral 04/28/2019 H92.11 Otorrhea, right ear Tia Regalado PA-C 04/28/2019 J35.01 Chronic tonsillitis Tia Regalado PA-C 12/19/2018 H92.03 Otalgia, bilateral Raghavendra Best MA, [facility] 12/19/2018 H92.03 Otalgia, bilateral Billy Roach MD 12/19/2018 H93.293 Other abnormal auditory perceptions, Raghavendra Best MA, CCC-A bilateral 12/19/2018 H93.293 Other abnormal auditory perceptions, Billy Roach MD bilateral Plan of Treatment Future Appointment(s):05/19/2019 2:00 pm - Viet Monterroso M.D. at [place] ,After 08/13/808 - NESS Lindsey-CH92.03 Otalgia, kiauqzanhZ85.83 Other specified disorders of Eustachian tube, asiapeldhF37.11 Otorrhea, right earNew Medication:Ofloxacin (Ophthalmic) 0.3 % - 3 drops affected ear twice a dayComments:There is no otorrhea evident on examination of either ear, however there is inflammation seen in theright side proximal canal and tympanic membrane. I recommended she try Floxin drops twice a day forthe next 7-10 days to see if this calms down.J35.01 Chronic tonsillitisComments:She had strep throat a couple years ago and has never had mono.Follow up:Dr. Monterroso 3-4 weeks recheck tonsils and ears Functional Status Description No Information Available Mental Status Description No Information Available Referrals Description No Information Available
--- NOTE | 2019-05-28 17:35 | UC ---
Abdominal Pain Female HPI - HPI Summary HPI Summary: 28 year old female presents with abdominal pain x 2 days, started at work yesterday, improved with lying down after work last night, again occurred at work today. Denies N/V/C/D. no fever, chills. REcent gastric bypass in 2018. Patient unsure of , sexually active without OCPs. - History of Current Complaint Chief Complaint: UCAbdominalPain Stated Complaint: ABD PAIN Time Seen by Provider: 05/28/19 17:23 Hx Obtained From: Patient Hx Last Menstrual Period: beginning April ?: Yes - Patient told at visit Onset/Duration: Sudden Onset, Lasting Days Pain Intensity: 6 Allergies/Adverse Reactions: Allergies Allergy/AdvReac Type Severity Reaction Status Date / Time ibuprofen Allergy GI Upset Verified 06/05/19 16:11 PMH/Surg Hx/FS Hx/Imm Hx Previously Healthy: No - gastric bypass - Surgical History Surgical History: Yes Surgery Procedure, Year, and Place: right wrist. appendectomy. gall bladder. . 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 - Family History Known Family History: Positive: Cardiac Disease, Hypertension, Diabetes - Social History Alcohol Use: Rare Substance Use Type: None Smoking Status (MU): Never Smoked Tobacco Have You Smoked in the Last Year: No - Immunization History Most Recent Influenza Vaccination: 2014 Most Recent Tetanus Shot: 06/03/14 Most Recent Pneumonia Vaccination: na Review of Systems All Other Systems Reviewed And Are Negative: Yes Constitutional: Positive: Negative Skin: Positive: Negative Gastrointestinal: Positive: Abdominal Pain, Nausea Is Patient Immunocompromised?: No Physical Exam Triage Information Reviewed: Yes Appearance: Well-Appearing, No Pain Distress, Well-Nourished Vital Signs: Initial Vital Signs Temp 99.0 F 05/28/19 16:16 Pulse 69 05/28/19 16:16 Resp 18 05/28/19 16:16 BP 124/77 05/28/19 16:16 Pulse Ox 100 05/28/19 16:16 Vital Signs Reviewed: Yes Eyes: Positive: Conjunctiva Clear ENT: Positive: Hearing grossly normal Respiratory: Positive: Chest non-tender, Lungs clear, Normal breath sounds, No respiratory distress, No accessory muscle use Cardiovascular: Positive: RRR, No Murmur Abdomen Description: Positive: No Organomegaly, Soft, Other: - diffuse mild pain to palpation throughout abdomen.. Negative: Distended, Guarding, Hepatomegaly, McBurney's Point Tenderness, Peritoneal Signs, Pulsatile Mass, Splenomegaly Bowel Sounds: Positive: Present Neurological Exam: Normal Psychological Exam: Normal Skin Exam: Normal Abd Pain Female Course/Dx - Course Course Of Treatment: - Go to ER with increased symptoms overnight - Call [facility] in AM to set up an appointment. confirmed via ultrasound, gestational age 5 weeks, 6 days - Blood work done, follow up with results tomorrow. - Begin vitamins - Increase fluid intake - Differential Dx/Diagnosis Provider Diagnosis: Discharge ED - Sign-Out/Discharge Documenting (check all that apply): Patient Departure All imaging exams completed and their final reports reviewed: Yes - Discharge Plan Condition: Good Disposition: HOME Prescriptions: Pnv No.95/Ferrous Fum/Folic AC [ Caplet] 1 each PO DAILY #30 tablet Patient Education Materials: (ED) Referrals: Jenna Asencio MD [Medical Doctor] - Fabián Melton MD [Primary Care Provider] - Additional Instructions: - Go to ER with increased symptoms overnight - Call [facility] in AM to set up an appointment. confirmed via ultrasound, gestational age 5 weeks, 6 days - Blood work done, follow up with results tomorrow. - Begin vitamins - Increase fluid intake - Billing Disposition and Condition Condition: GOOD Disposition: Home
[2019-05-28 18:41] VITALS: BP 130/76
[2019-05-29 12:08] LABS: Albumin 4.1 g/dL (3.2-5.2); Anion Gap 6 mmol/L (2-11); CO2 Carbon Dioxide 23 mmol/L (22-32); Calcium 9.1 mg/dL (8.6-10.3); Chloride 108 mmol/L (101-111); Potassium 3.6 mmol/L (3.5-5.0); Sodium 137 mmol/L (135-145)
[2019-05-29 12:14] LABS: ALT 15 U/L (7-52); AST 14 U/L (13-39); Albumin/Globulin Ratio 1.6 (1-3); Alkaline Phosphatase 58 U/L (34-104); BUN/Creatinine Ratio 18.5 (8-20); Blood Urea Nitrogen 10 mg/dL (6-24); EGFR African American 163.9 (>60); EGFR Non-African American 135.4 (>60); Globulin 2.5 g/dL (2-4); Glucose 70 mg/dL (70-100); Total Protein 6.6 g/dL (6.4-8.9)
[2019-05-29 12:15] LABS: ABS Basophils 0.1 10^3/ul (0-0.2); ABS Eosinophils 0.1 10^3/ul (0-0.6); ABS Lymphocytes 3.3 10^3/ul (1.0-4.8); ABS Monocytes 0.5 10^3/ul (0-0.8); Eosinophil % 1.4 %; Hematocrit 34 % (35-47); Hemoglobin 11.5 g/dL (12.0-16.0); Lymphocyte % 32.8 %; Mean Corpuscular HGB Conc 33 g/dL (31-36); Mean Corpuscular Hemoglobin 25 pg (27-31); Mean Corpuscular Volume 74 fL (80-97); Mean Platelet Volume 9.1 fL (7.4-10.4); Platelet Count 260 10^3/uL (150-450); Red Blood Count 4.64 10^6 /uL (3.70-4.87); Red Cell Distribution Width 18 % (10-15)
[2019-05-29 14:36] LABS: Total Iron Binding Capacity 416 mcg/dL (250-450); Transferrin 297 mg/dL (203-362)
[2019-05-29 14:39] LABS: % Iron Saturation 5 % (15-55); Iron < 20 ug/dL (50-212)
--- NOTE | 2019-05-29 16:35 | UC ---
- Progress Note Progress Note: Pt is and CBC indicates mild iron deficiency anemia. The note does not indicate that pt has or was given vitamins. Please call pt to see if pt has vitamins and if not, RX for Pre vitamins have been sent to preferred pharmacy. Course/Dx - Diagnoses Provider Diagnoses: Is Visit Related: No Discharge ED - Sign-Out/Discharge Documenting (check all that apply): Post-Discharge Follow Up All imaging exams completed and their final reports reviewed: No Studies - Discharge Plan Condition: Good Disposition: HOME Prescriptions: Pnv No.95/Ferrous Fum/Folic AC [ Caplet] 1 each PO DAILY #30 tablet Patient Education Materials: (ED) Referrals: Fabián Melton MD [Primary Care Provider] - Additional Instructions: - Go to ER with increased symptoms overnight - Call RIG SUPERVISOR in AM to set up an appointment. confirmed via ultrasound, gestational age 5 weeks, 6 days - Blood work done, follow up with results tomorrow. - Begin vitamins - Increase fluid intake - Billing Disposition and Condition Condition: GOOD Disposition: Home
--- NOTE | 2019-05-30 10:11 | UC ---
- Progress Note Progress Note: Likely TAMIKO. Given her , she was started on vitamins yesterday as per LOG' s note yesterday. I recommended that she follow up with an OBGYN as soon as possible Course/Dx - Diagnoses Provider Diagnoses: Is Visit Related: No Discharge ED - Sign-Out/Discharge Documenting (check all that apply): Post-Discharge Follow Up All imaging exams completed and their final reports reviewed: No Studies - Discharge Plan Condition: Good Disposition: HOME Prescriptions: Pnv No.95/Ferrous Fum/Folic AC [ Caplet] 1 each PO DAILY #30 tablet Patient Education Materials: (ED) Referrals: Fabián Melton MD [Primary Care Provider] - Jenna Asencio MD [Medical Doctor] - Additional Instructions: - Go to ER with increased symptoms overnight - Call CLINICAL LABORATORY TECHNOLOGIST in AM to set up an appointment. confirmed via ultrasound, gestational age 5 weeks, 6 days - Blood work done, follow up with results tomorrow. - Begin vitamins - Increase fluid intake - Billing Disposition and Condition Condition: GOOD Disposition: Home
== END 2019-05-28 18:41 | disposition home or self-care (01) ==
LOC: UCEAST 16:00
DX: O99.011 Anemia complicating pregnancy, first trimester (principal); O26.91 Pregnancy related conditions, unspecified, first trimester; Z3A.01 Less than 8 weeks gestation of pregnancy; Z88.8 Allergy status to other drugs, medicaments and biological substances
CPT/HCPCS: 36415; 76817; 80053; 81003; 82607; 83540; 83550; 83690; 84702; 85025; 99211; G0463

== ENCOUNTER 2019-06-05 16:08 | Emergency (ER) | payer OTHER ==
--- NOTE | 2019-06-05 16:17 | ED ---
Abdominal Pain/Female - HPI Summary HPI Summary: Pt is a 28 y/o F presenting to the ED for a chief complaint of epigastric abdominal pain near the umbilicus that began 05/28/19. Pt was told to go to the ED from bariatrics. Pt previously went to [facility] and found to be 8 weeks . Pt reports the pain worsens with walking, movement, and eating. Pt also admits right-sided back pain the pt describes as cramping, urinary frequency, and urinary retention. Pt also states she has had changes in bowel movements, having 2 bowel movements on 06/05/19. Pt denies any fever, chills, erythema of eyes, sore throat, CP, SOB, cough, N/V, mucous in stool, dysuria, hematuria, urinary burning, myalgia, edema, rash, or dizziness. Pt is s/p gastric bypass 8 months ago performed by Dr. Reagan Sequeira. Pt has a PSHx of C- section, appendectomy, cholecystectomy, and right wrist surgery. Pt previously took ibuprofen for pain, but was told to stop taking ibuprofen. - History of Current Complaint Chief Complaint: EDAbdPain Stated Complaint: ABDOMINAL PAIN PER PT Hx Obtained From: Patient Hx Last Menstrual Period: beginning April Onset/Duration: Sudden Onset, Lasting Days, Still Present Timing: Days Severity Initially: Severe Severity Currently: Severe Pain Intensity: 8 Pain Scale Used: 0-10 Numeric Location: Epigastric - Near the umbilicus Radiates: Yes Radiates to: Back - Right-sided Character: Cramping Aggravating Factor(s): Food, Movement, Other: - Walking Alleviating Factor(s): Nothing Associated Signs and Symptoms: Positive: Back Pain - Right-sided, Urinary Symptoms. Negative: Fever, Chest Pain, Dizzy, Nausea, Vomiting - Positive urinary frequency and retention Allergies/Adverse Reactions: Allergies Allergy/AdvReac Type Severity Reaction Status Date / Time ibuprofen Allergy GI Upset Verified 06/05/19 16:11 PMH/Surg Hx/FS Hx/Imm Hx Previously Healthy: Yes Endocrine/Hematology History: Reports: Hx Thyroid Disease - hypo Denies: Hx Diabetes Cardiovascular History: Reports: Hx Hypertension Denies: Hx Congestive Heart Failure, Hx Pacemaker/ICD, Other Cardiovascular Problems/Disorders Respiratory History: Reports: Hx Sleep Apnea Denies: Hx Asthma, Hx Chronic Obstructive Pulmonary Disease (COPD), Other Respiratory Problems/Disorders GI History: Denies: Hx Ulcer, Other GI Disorders History: Denies: Other Problems/Disorders Musculoskeletal History: Reports: Hx Tendonitis - right arm Denies: Other Musculoskeletal History Sensory History: Denies: Hx Contacts or Glasses, Hx Legally Blind, Hx Deafness, Hx Hearing Aid Opthamlomology History: Denies: Hx Contacts or Glasses, Hx Legally Blind EENT History: Denies: Hx Deafness Neurological History: Reports: Hx Migraine - 2 MIGRAINES A WEEK Denies: Other Neuro Impairments/Disorders Psychiatric History: Reports: Hx Anxiety, Hx Depression Denies: Other Psychiatric Issues/Disorders - Surgical History Surgical History: Yes Surgery Procedure, Year, and Place: right wrist. appendectomy. gall bladder. . 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 Hx Anesthesia Reactions: No - Immunization History Date of Tetanus Vaccine: UNK Date of Influenza Vaccine: UNK Infectious Disease History: No Infectious Disease History: Denies: Hx Clostridium Difficile, Hx Hepatitis, Hx Human Immunodeficiency Virus (HIV), Hx of Known/Suspected MRSA, Hx Shingles, Hx Tuberculosis, Hx Known/ Suspected VRE, Hx Known/Suspected VRSA, History Other Infectious Disease, Traveled Outside the [place] in Last 30 Days - Family History Known Family History: Positive: Cardiac Disease, Hypertension, Diabetes - Social History Alcohol Use: Rare Hx Substance Use: No Substance Use Type: Reports: None Hx Tobacco Use: No Smoking Status (MU): Never Smoked Tobacco Have You Smoked in the Last Year: No Review of Systems Negative: Fever, Chills Negative: Erythema Negative: Sore Throat Negative: Chest Pain Negative: Shortness Of Breath, Cough Positive: Abdominal Pain - Epigastric, near the umbilicus, Other - Positive changes in bowel movements. Negative: Vomiting, Nausea Positive: frequency - Urinary, other - Positive urinary retention. Negative: burning, dysuria, hematuria Positive: Myalgia - Right-sided back pain. Negative: Edema Negative: Rash Neurological: Other - Negative dizziness All Other Systems Reviewed And Are Negative: Yes Physical Exam - Summary Physical Exam Summary: Constitutional: Well-developed, Well-nourished, Alert. (-) Distressed Skin: Warm, Dry HENT: Normocephalic; Atraumatic Eyes: Conjunctiva normal Neck: Musculoskeletal ROM normal neck. (-) JVD, (-) Stridor, (-) Tracheal deviation Cardio: Rhythm regular, rate normal, Heart sounds normal; Intact distal pulses; The pedal pulses are 2+ and symmetric. Radial pulses are 2+ and symmetric. (-) Murmur Pulmonary/Chest wall: Effort normal. (-) Respiratory distress, (-) Wheezes, (-) Rales Abd: Soft, (-) tenderness, (-) Distension, (-) Guarding, (-) Rebound, Morbidly obese abdomen, no significant tenderness appreciated, no palpable hernias Musculoskeletal: (-) Edema Lymph: (-) Cervical adenopathy Neuro: Alert, Oriented x3 Psych: Mood and affect Normal Triage Information Reviewed: Yes Vital Signs On Initial Exam: Initial Vitals Temp Pulse Resp BP Pulse Ox 98.7 F 70 16 141/89 100 06/05/19 16:09 06/05/19 16:09 06/05/19 16:09 06/05/19 16:09 06/05/19 16:09 Vital Signs Reviewed: Yes Procedures - Sedation Patient Received Moderate/Deep Sedation with Procedure: No Diagnostics - Vital Signs Vital Signs Temp Pulse Resp BP Pulse Ox 06/05/19 16:09 98.7 F 70 16 141/89 100 - Laboratory Result Diagrams: 06/05/19 16:39 06/05/19 16:39 Lab Statement: Any lab studies that have been ordered have been reviewed, and results considered in the medical decision making process. - Ultrasound Transvaginal US Ultrasound Interpretation Completed By: Radiologist Summary of Ultrasound Findings: Transvaginal US IMPRESSION: Single viable IUP corresponding to 7 weeks 1 day gestation by ultrasound. No acute findings. Tolerated oral intake, I do not suspect n cute abduoe surgical. Evaluated by Dr. Julianna Menendez who greepresc neign. Sx for 2 weeks worse a/f eting, no evidence of ectopic. Dr. Morrison in one week nd ob in one week. Reviewed by ED physician. Re-Evaluation - Re-Evaluation First Eval Re-Evaluation Time: 19:04 Change: Unchanged Comment: At 19:04, pt is pain free. Abdominal Pain Fem Course/Dx - Course Course Of Treatment: Pt is a 28 y/o F presenting to the ED for a chief complaint of epigastric abdominal pain near the umbilicus that began 05/28/19. Pt was told to go to the ED from bariatrics. Pt previously went to [facility] and found to be 8 weeks . Pt reports the pain worsens with walking , movement, and eating. Pt also admits right-sided back pain the pt describes as cramping, urinary frequency, and urinary retention. Pt also states she has had changes in bowel movements, having 2 bowel movements on 06/05/19. Pt denies any fever, chills, erythema of eyes, sore throat, CP, SOB, cough, N/V, mucous in stool, dysuria, hematuria, urinary burning, myalgia, edema, rash, or dizziness. Pt is s/p gastric bypass 8 months [address] performed by Dr. Reagan Sequeira. Pt has a PSHx of , appendectomy, cholecystectomy, and right wrist surgery. Pt previously took ibuprofen for pain, but was told to stop taking ibuprofen. On exam, morbidly obese abdomen, no significant tenderness appreciated, no palpable hernias. Laboratory abnormal findings: Hgb 11.1, Hct 34, MCV 75, MCH 25, RDW 19, urine ketones 1+, urine ascorbic acid present. Transvaginal US IMPRESSION: Single viable IUP corresponding to 7 weeks 1 day gestation by ultrasound. No acute findings. Tolerated oral intake, I do not suspect n cute abduoe surgical. Evaluated by Dr. Julianna Menendez who greepresc neign. Sx for 2 weeks worse a/f eting, no evidence of ectopic. Dr. Morrison in one week nd ob in one week. At 19:04, pt is pain free. Tolerated oral intake, I do not suspect an acute surgical abdomen. Evaluated by Dr. Julianna Menendez who agrees with benign abdomen. Sx for 2 weeks worse after eating, no evidence of an ectopic . Pt will be discharged with a diagnosis of intrauterine and abdominal pain. Follow up with Dr. Sequeira in one week. - Diagnoses Provider Diagnoses: Intrauterine , Abdominal pain Discharge ED - Sign-Out/Discharge Documenting (check all that apply): Patient Departure - Discharge - Discharge Plan Condition: Stable Disposition: HOME Patient Education Materials: (ED) Referrals: Fabián Melton MD [Primary Care Provider] - Titus Salazar JR, DO [Doctor of Osteopathy] - Reagan Sequeira MD [Medical Doctor] - Additional Instructions: Follow up with Dr. Mecenas in one week and an Dr. Salazar or other drywall mechanic in one week. RETURN TO THE EMERGENCY DEPARTMENT FOR CHANGING OR WORSENING SYMPTOMS. - Attestation Statements Document Initiated by Scribe: Yes Documenting Scribe: Angie Monsivais Provider For Whom Scribe is Documenting (Include Credential): Orion De Anda MD Scribe Attestation: Angie Sinha, scribed for Orion De Anda MD on 06/05/19 at 1915. Status of Scribe Document: Ready
[2019-06-05 16:46] LABS: ABS Eosinophils 0.1 10^3/ul (0-0.6); ABS Lymphocytes 2.7 10^3/ul (1.0-4.8); ABS Monocytes 0.7 10^3/ul (0-0.8); ABS Neutrophils 6.2 10^3/ul (1.5-7.7); Eosinophil % 0.8 %; Hematocrit 34 % (35-47); Hemoglobin 11.1 g/dL (12.0-16.0); Lymphocyte % 27.9 %; Mean Corpuscular HGB Conc 33 g/dL (31-36); Mean Corpuscular Hemoglobin 25 pg (27-31); Mean Corpuscular Volume 75 fL (80-97); Platelet Count 254 10^3/uL (150-450); Red Blood Count 4.51 10^6 /uL (3.70-4.87); Red Cell Distribution Width 19 % (10-15); White Blood Count 9.8 10^3/uL (3.5-10.8)
--- OUTSIDE RECORDS SUMMARY | 2019-06-05 17:03 | XMS REPORT | Continuity of Care Document ---
:1990 External Reference #:[id number] Author Name Nurse Visit Gastroenterology (transmitted by agent of provider Tita Wakefield) Address [address] [place] [address] Problems Active Problems Provider Date Obstructive sleep apnea syndrome Katie Mendez DNP, RN, AERONAUTICAL INSPECTOR-BC Onset: Body mass index 40+ - severely Katie Mendez DNP, RN, AERONAUTICAL INSPECTOR-BC Onset: 2018 obese Iron deficiency anemia Abhijeet Bass MD Onset: 09/04/2014 Note: Hg 10.6 MCV March; lowest Hg 2011 to fall 2018 was Hg 12.0 / MCV Aug Hypothyroidism Abhijeet Bass MD Onset: 05/12/2011 Vitamin B12 deficiency (non anaemic) Abhijeet Bass MD Onset: 04/02/2019 Note: 365 4 wks post bypass - 145 5 months post GIB; Social History Type Date Description Comments Sex [...] Medications Active Medications SIG Qnty Indications Ordering Date Provider Cyanocobalamin 1 ml Im every 2 30ml Abhijeet Ward 05/28/2019 1000mcg/ML weeks for a MD Kali Solution sequence of 3 Opurity 2 tablets daily Abhijeet Ward 05/12/2019 Tablets MD Kali Levothyroxine Sodium take 3 tablets Unknown 11/01/2010 100mcg (300 mcg) once Tablets daily Albuterol Sulfate 1 vial via Unknown nebulizer 4 times (2.5mg/3ML) 0.083% daily as needed Nebulizer Ferrous Gluconate Fabián Melton, 324(38Fe) MD mg Tablets C-Chewable Fabián Melton, 500mg Chewtabs Vitamin B12 1 by mouth every Unknown 1000mcg Tablets day ER Vitamin E-400 1 by mouth once a Unknown 400Unit day Capsules Medications Administered in Office Medication SIG Qnty Indications Ordering Provider Date Vitamin B12 Pt Provided Nurse Visit Gastroenterology 05/29/2019 Vac Injection Immunizations Description No Information Available Vital Signs [...] Test Result H/L Range Note CBC Auto 05/28/2019 [facility] White Blood 10.0 10^3/uL Normal 3.5-10.[address] [place] [address] [phone] Red Blood Count 4.64 10^6/uL Normal 3.70-4.87 Hemoglobin 11.5 g/dL Low 12.0-16.0 Hematocrit 34 % Low 35-47 Mean Corpuscular Volume 74 fL Low 80-97 2 Mean Corpuscular Hemoglobin 25 pg Low 27-31 Mean Corpuscular HGB Conc 33 g/dL Normal 31-36 Red Cell Distribution Width 18 % High 10-15 Platelet Count 260 10^3/uL Normal 150-450 Mean Platelet Volume 9.1 fL Normal 7.4-10.4 Abs Neutrophils 6.0 10^3/uL Normal 1.5-7.7 Abs Lymphocytes 3.3 10^3/uL Normal 1.0-4.8 Abs Monocytes 0.5 10^3/uL Normal 0-0.8 Abs Eosinophils 0.1 10^3/uL Normal 0-0.6 Abs Basophils 0.1 10^3/uL Normal 0-0.2 Abs Nucleated RBC 0.0 10^3/uL Granulocyte % 59.8 % Lymphocyte % 32.8 % Monocyte % 5.4 % Eosinophil % 1.4 % Basophil % 0.6 % Nucleated Red Blood Cells % 0.0 CBC Auto 05/12/2019 [facility] White Blood 11.2 10^3/uL High 3.5-10.[address] [place] [address] [phone] Red Blood Count 4.95 10^6/uL High 3.70-4.87 Hemoglobin 11.6 g/dL Low 12.0-16.0 Hematocrit 37 % Normal 35-47 Mean Corpuscular Volume 74 fL Low 80-97 3 Mean Corpuscular Hemoglobin 24 pg Low 27-31 Mean Corpuscular HGB Conc 32 g/dL Normal 31-36 Red Cell Distribution Width 19 % High 10-15 Platelet Count 291 10^3/uL Normal 150-450 Mean Platelet Volume 8.3 fL Normal 7.4-10.4 Abs Neutrophils 7.0 10^3/uL Normal 1.5-7.7 Abs Lymphocytes 3.3 10^3/uL Normal 1.0-4.8 Abs Monocytes 0.7 10^3/uL Normal 0-0.8 Abs Eosinophils 0.2 10^3/uL Normal 0-0.6 Abs Basophils 0.0 10^3/uL Normal 0-0.2 Abs Nucleated RBC 0.0 10^3/uL Granulocyte % 62.4 % Lymphocyte % 29.5 % Monocyte % 6.2 % Eosinophil % 1.5 % Basophil % 0.4 % Nucleated Red Blood Cells % 0.0 Comp Metabolic 05/12/2019 [facility] Sodium 138 mmol/L Normal 135-[address] [place] [address] [phone] Potassium 4.1 mmol/L Normal 3.5-5.0 Chloride 106 mmol/L Normal 101-111 Co2 Carbon Dioxide 27 mmol/L Normal 22-32 Anion Gap 5 mmol/L Normal 2-11 Glucose 76 mg/dL Normal 70-100 Blood Urea Nitrogen 15 mg/dL Normal 6-24 Creatinine 0.64 mg/dL Normal 0.51-0.95 BUN/Creatinine Ratio 23.4 High 8-20 Calcium 8.9 mg/dL Normal 8.6-10.3 Total Protein 6.4 g/dL Normal 6.4-8.9 Albumin 4.1 g/dL Normal 3.2-5.2 Globulin 2.3 g/dL Normal 2-4 Albumin/Globulin Ratio 1.8 Normal 1-3 Total Bilirubin 0.20 mg/dL Normal 0.2-1.0 Alkaline Phosphatase 69 U/L Normal 34-104 Alt 18 U/L Normal 7-52 Ast 13 U/L Normal 13-39 Egfr Non- 111.3 >60 Egfr 134.7 >60 4 Laboratory test 05/12/2019 [facility] C Reactive 2.56 mg/L Normal <8.[address] [place] [address] [phone] Ferritin 5.1 ng/mL Low 11-307 Iron & Iron 05/12/2019 [facility] Total Iron 414 g/dL Normal 250-[address] [place] [address] Capacity [phone] Transferrin 296 mg/dL Normal 203-362 Iron < 20 g/dL Low 50-212 Unsaturated Iron Binding < 399 g/dL % Iron Saturation 5 % Low 15-55 Laboratory test 05/12/2019 [facility] Vitamin B12 188 pg/mL Normal 180-914 [address] [place] [address] [phone] 1 [id number] 2 Consistent with Previous Results Reported on 05/12/19 3 Consistent with Previous Results Reported on 04/02/2019 4 Because ethnic data is not always readily [...] 15-29 5 Kidney failure <15 (or dialysis) 5 Normal Range 180 to 914 Indeterminate Range 145 to 180 Deficient Range <145 Procedures Description No Information Available Medical Devices Description No Information Available Encounters Type Date Location Provider Dx Diagnosis Office Visit 05/12/2019 [facility] Gastroenterology Abhijeet Ward K29.71 Gastritis, 3:45p MD Kali unspecified, with bleeding R10.13 Epigastric pain D64.9 Anemia, unspecified Z68.43 Body mass index (BMI) 50.0-59.9, adult Assessments Date Code Description Provider 05/12/2019 K29.71 Gastritis, unspecified, with bleeding Abhijeet Bass MD 05/12/2019 R10.13 Epigastric pain Abhijeet Bass MD 05/12/2019 D64.9 Anemia, unspecified Abhijeet Bass MD 05/12/2019 Z68.43 Body mass index (BMI) 50-59.9, adult Abhijeet Bass MD Plan of Treatment Future Appointment(s):06/13/2019 2:30 pm - Nurse Visit Gastroenterology at [facility] Hraodcwzdfuwiuvj02/28/2019 4:00 pm - Viktoria Hopkins NP at [facility] [id number] /30/2019 - Abhijeet Bass MDK29.71 Gastritis, unspecified, with bleedingFollow up:f/u one month with RA.R10.13 Epigastric painFollow up:f/u one month with RA.D64.9 Anemia, unspecifiedFollow up:f/u one month with RA.Z68.43 Body mass index (BMI) 50.0-59.9, adultFollow up:f/u one month with RA. Functional Status Description No Information Available Mental Status Description No Information Available Referrals Description No Information Available
[2019-06-05 17:04] LABS: Albumin 3.9 g/dL (3.2-5.2); Albumin/Globulin Ratio 1.4 (1-3); C Reactive Protein 4.69 mg/L (<8.01); Calcium 9.1 mg/dL (8.6-10.3); EGFR African American 142.4 (>60); EGFR Non-African American 117.7 (>60); Globulin 2.7 g/dL (2-4); Potassium 3.8 mmol/L (3.5-5.0); Total Bilirubin 0.2 mg/dL (0.2-1.0); Total Protein 6.6 g/dL (6.4-8.9)
[2019-06-05 17:20] LABS: Urine Appearance Cloudy; Urine Bilirubin Negative (Negative); Urine Blood Negative (Negative); Urine Color Yellow; Urine Glucose Negative (Negative); Urine Ketones 1+ (Negative); Urine Nitrite Negative (Negative); Urine Protein Negative (Negative); Urine Specific Gravity 1.028 (1.010-1.030); Urine Urobilinogen Negative (Negative)
--- NOTE | 2019-06-05 17:37 | CONS ---
CONSULTATION REPORT: DATE OF CONSULT: 06/05/19 SERVICE: General Surgery. ATTENDING SURGEON: Dr. Julianna Menendez. REASON FOR CONSULT: Abdominal pain, status post Kike-en-Y gastric bypass. HISTORY OF PRESENT ILLNESS: Ms. Otero is a 28-year-old female with a history of anemia, and morbid obesity s/p R-Y gastric bypass who presented to the emergency room with complaints of epigastric abdominal pain that started on 05/28/19. She said at that time she had gone to [facility] care and she was found to be . She says that she is now approximately 8 weeks . She says that since she was they did not do any further testing or imaging and she has been seen by Monica, the nurse practitioner at the bariatric center, who she said had told her she can either have a followup visit with Dr. Sequeira today or she can proceed to the emergency room. She decided to come to the emergency room today she says because she had some time available. She says that her pain has been the exact same since 05/28/19. She describes it as a 7/10. It is right above the umbilicus. She is tolerating a diet. She is nauseous, but she has not had any vomiting. She is having bowel function, but she says that it is irregular. She is also urinating without difficulty. PAST MEDICAL HISTORY: Morbid obesity and anemia. PAST SURGICAL HISTORY: 1. Kike-en-Y gastric bypass [address] Sequeira. 2. Cholecystectomy. 3. Appendectomy. 4. . 5. Tendinitis repair. MEDICATIONS: 1. Levothyroxine. 2. Iron tablets. 3. Vitamin C. 4. . ALLERGIES: To IBUPROFEN. She says that she was told not to take this after she was found on upper endoscopy to have ulcers. FAMILY HISTORY: Noncontributory. 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 She is a nonsmoker. REVIEW OF SYSTEMS: Her other review of systems is negative. PHYSICAL EXAM: Vital Signs: Temperature is 98.7, pulse is 70, respiratory rate is 16, O2 sat is 100% O2 on room air, blood pressure is 141/89. She is a well- appearing, young woman, sitting comfortably in bed, conversing easily, in no apparent distress. Respiratory: No increased work of breathing. Abdomen is obese, soft, subjectively mildly tender just above the umbilicus, but there is no rebound or guarding. All the other quadrants are without tenderness. DIAGNOSTIC STUDIES/LAB DATA: White blood cell count is 9.8, hemoglobin is 7.1, hematocrit is 34, platelets are 254. Imaging: None. ASSESSMENT AND PLAN: Ms. Otero is a 28-year-old female with a history of anemia and morbid obesity, status post Kike-en-Y gastric bypass, who is approximately 8 weeks and presents to the emergency room with complaints of 8 days of abdominal pain that has been constant in nature and is located just above her umbilicus. She is tolerating a diet. She is not vomiting. She is having bowel function and her abdominal exam is fairly benign and she has no fevers and no leukocytosis. Given all these things, it is unclear if her abdominal pain is surgical in nature such as due to adhesions or possibly the internal hernia from her gastric bypass surgery. It seems unlikely given she is not having obstructive symptoms. Furthermore, she is in her first trimester and many of these symptoms could potentially attributable to this. I have discussed this case with Dr. De Anda from the emergency room as well as Dr. Sequeira. Dr. De Anda will plan on evaluating her further to see if she needs to have any imaging. If she is unable to tolerate a diet, if her remaining labs that have not been yet resulted appear concerning and if she requires a CT scan, the discussion would have to be made with the patient about whether or not she is willing to tolerate potential radiation risk to her fetus with the CT scan. Otherwise, another alternative would be MRI. However, given the chronicity in her mild symptoms that are fairly nonspecific, she may simply be able to follow up in the bariatric center as an outpatient. [id number]/[facility] #: [id number] ADI
[2019-06-05] MEDS ORDERED: Lidocaine 2% VISCOUS* 15 ML UDC PO ONE (18:50)
[2019-06-05 19:38] VITALS: BP 132/68
== END 2019-06-05 19:20 | disposition home or self-care (01) ==
LOC: ED 16:08
DX: O26.891 Other specified pregnancy related conditions, first trimester (principal); R10.13 Epigastric pain; R10.33 Periumbilical pain; R35.0 Frequency of micturition; R33.9 Retention of urine, unspecified; Z3A.01 Less than 8 weeks gestation of pregnancy; E03.9 Hypothyroidism, unspecified; I10 Essential (primary) hypertension; Z98.84 Bariatric surgery status; Z90.49 Acquired absence of other specified parts of digestive tract; Z90.89 Acquired absence of other organs; Z88.6 Allergy status to analgesic agent
CPT/HCPCS: 36415; 76817; 80053; 81003; 83605; 83690; 85025; 86140; 99282

== ENCOUNTER 2019-07-08 19:47 | Emergency (ER) | payer OTHER ==
--- NOTE | 2019-07-08 20:01 | ED ---
GI/ HPI - HPI Summary HPI Summary: Patient is a 28 y/o F presenting to the ED for a chief complaint of vaginal bleeding that began at 19:20 on 07/08/19. She is 11 weeks 5 days . She had an ultrasound that confirmed her . She admits some tissue in the vaginal bleeding. Patient also admits diffuse abdominal pain due to constipation. She denies any aggravating or alleviating factors. Patient is seen at [facility] and has an appointment on 07/15/19. This is her 2nd . She had preeclampsia from her previous . She is taking vitamins. Patient denies tobacco, alcohol, or drug use. Patient last had sexual intercourse one day ago. LNMP was 04/11/19. Medications reviewed. Allergies noted. - History of Current Complaint Chief Complaint: EDOBProblems Time Seen by Provider: 07/08/19 19:56 Stated Complaint: 11 PREG BLEEDING PER PT Hx Obtained From: Patient Hx Last Menstrual Period: beginning April Onset/Duration: Started Minutes Ago, Atraumatic, Still Present Timing: Constant, Lasting Minutes Severity: Moderate Current Severity: Moderate Pain Intensity: 4 Location of Pain: Diffuse Associated Signs and Symptoms: Positive: Other: - Positive vaginal bleeding Additional Signs & Symptoms: Positive: Vaginal Bleeding Aggravating Factor(s): Nothing Alleviating Factor(s): Nothing - Additional Pertinent History Primary Care Physician: [id number] - Allergy/Home Medications Allergies/Adverse Reactions: Allergies Allergy/AdvReac Type Severity Reaction Status Date / Time ibuprofen Allergy GI Upset Verified 07/08/19 19:52 Home Medications: Home Medications Docusate CAP* [Colace Cap*] 100 mg PO BID PRN 07/08/19 [History Confirmed ] PMH/Surg Hx/FS Hx/Imm Hx Previously Healthy: Yes Endocrine/Hematology History: Reports: Hx Thyroid Disease - hypo Denies: Hx Diabetes Cardiovascular History: Reports: Hx Hypertension Denies: Hx Congestive Heart Failure, Hx Hypercholesterolemia, Hx Pacemaker/ ICD, Other Cardiovascular Problems/Disorders Respiratory History: Reports: Hx Sleep Apnea Denies: Hx Asthma, Hx Chronic Obstructive Pulmonary Disease (COPD), Other Respiratory Problems/Disorders GI History: Denies: Hx Ulcer, Other GI Disorders History: Denies: Other Problems/Disorders Musculoskeletal History: Reports: Hx Tendonitis - right arm Denies: Other Musculoskeletal History Sensory History: Denies: Hx Contacts or Glasses, Hx Legally Blind, Hx Deafness, Hx Hearing Aid Opthamlomology History: Denies: Hx Contacts or Glasses, Hx Legally Blind EENT History: Denies: Hx Deafness Neurological History: Reports: Hx Migraine - 2 MIGRAINES A WEEK Denies: Other Neuro Impairments/Disorders Psychiatric History: Reports: Hx Anxiety, Hx Depression Denies: Other Psychiatric Issues/Disorders - Surgical History Surgical History: Yes Surgery Procedure, Year, and Place: right wrist. appendectomy. gall bladder. . 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 Hx Anesthesia Reactions: No - Immunization History Date of Tetanus Vaccine: UNK Date of Influenza Vaccine: UNK Infectious Disease History: No Infectious Disease History: Denies: Hx Clostridium Difficile, Hx Hepatitis, Hx Human Immunodeficiency Virus (HIV), Hx of Known/Suspected MRSA, Hx Shingles, Hx Tuberculosis, Hx Known/ Suspected VRE, Hx Known/Suspected VRSA, History Other Infectious Disease, Traveled Outside the [place] in Last 30 Days - Family History Known Family History: Positive: Cardiac Disease, Hypertension, Diabetes - Social History Occupation: Employed Full-time Lives: With Family Alcohol Use: Rare Hx Substance Use: No Substance Use Type: Reports: None Hx Tobacco Use: No Smoking Status (MU): Never Smoked Tobacco Have You Smoked in the Last Year: No Review of Systems Positive: Abdominal Pain - Diffuse, Other - Positive constipation Positive: other - Positive vaginal bleeding All Other Systems Reviewed And Are Negative: Yes Physical Exam - Summary Physical Exam Summary: Constitutional: Well-developed, Well-nourished, Alert. (-) Distressed Skin: Warm, Dry HENT: Normocephalic; Atraumatic Eyes: Conjunctiva normal Neck: Musculoskeletal ROM normal neck. (-) JVD, (-) Stridor, (-) Tracheal deviation Cardio: Rhythm regular, rate normal, Heart sounds normal; Intact distal pulses; Radial pulses are 2+ and symmetric. (-) Murmur Pulmonary/Chest wall: Effort normal. (-) Respiratory distress, (-) Wheezes, (-) Rales Abd: Soft, (-) tenderness, (-) Distension, (-) Guarding, (-) Rebound Musculoskeletal: (-) Edema Lymph: (-) Cervical adenopathy Neuro: Alert, Oriented x3 Psych: Mood and affect Normal Pelvic: cervix is closed. Gabby Alvarado was present for the exam. Triage Information Reviewed: Yes Vital Signs On Initial Exam: Initial Vitals Temp Pulse Resp BP Pulse Ox 99.9 F 75 16 140/93 100 07/08/19 19:47 07/08/19 19:47 07/08/19 19:47 07/08/19 19:47 07/08/19 19:47 Vital Signs Reviewed: Yes Procedures - Sedation Patient Received Moderate/Deep Sedation with Procedure: No Diagnostics - Vital Signs Vital Signs Temp Pulse Resp BP Pulse Ox 07/08/19 19:47 99.9 F 75 16 140/93 100 - Laboratory Result Diagrams: 07/08/19 20:03 07/08/19 20:03 Lab Statement: Any lab studies that have been ordered have been reviewed, and results considered in the medical decision making process. - Ultrasound US Ultrasound Interpretation Completed By: Radiologist Summary of Ultrasound Findings: US IMPRESSION: 1. Single live intrauterine fetus with estimated age of 12 weeks 0 days. The EDC is 01/20/2020 with adequate interval growth since 06/05/2019. 2. Posterior placenta without previa or abruption. 3. Closed cervix measuring 4.[address] Morrison. GIGU Course/Dx - Course Course Of Treatment: Patient is here with one episode of vaginal bleeding. Patient had no new abdominal pain. Patient has O+ blood and does not need Rodin. Patient has a closed cervical os. Patient had an ultrasound which showed a IUP at 12 weeks with a heart rate of 174. Patient was encouraged to call her [facility] for f/u. - Diagnoses Provider Diagnoses: Vaginal bleeding, - Physician Notifications Discussed Care Of Patient With: Norma Estrada - At 21:13, I discussed the patients case with Dr. Estrada. Time Discussed With Above Provider: 21:13 Discharge ED - Sign-Out/Discharge Documenting (check all that apply): Patient Departure - Discharge - Discharge Plan Condition: Stable Disposition: HOME Patient Education Materials: (ED) Referrals: Fabián Melton MD [Primary Care Provider] - Norma Estrada MD [Family Provider] - Additional Instructions: Come back if large quantity of bleeding, severe pain, or any other concerning symptoms. Follow up with OB in 1-3 days. PLEASE RETURN TO EMERGENCY DEPARTMENT FOR ANY NEW OR WORSENING SYMPTOMS. Please follow up with your primary care physician. Please make all follow-ups in 1-3 days unless I advise you otherwise. - Billing Disposition and Condition Condition: STABLE Disposition: Home - Attestation Statements Document Initiated by Jayde: Yes Documenting Scribe: Angie Monsivais Provider For Whom Jayde is Documenting (Include Credential): Wallace Morrison MD Scribe Attestation: I, Angie Monsivais, scribed for Wallace Morrison MD on 07/08/19 at 2133. Scribe Documentation Reviewed: Yes Provider Attestation: The documentation as recorded by the Angie collins accurately reflects the service I personally performed and the decisions made by me, Wallace Morrison MD Status of Scribe Document: Viewed
[2019-07-08 20:15] LABS: ABS Eosinophils 0.1 10^3/ul (0-0.6); ABS Lymphocytes 3.5 10^3/ul (1.0-4.8); ABS Monocytes 0.9 10^3/ul (0-0.8); ABS Neutrophils 7.8 10^3/ul (1.5-7.7); Hematocrit 37 % (35-47); Hemoglobin 12.6 g/dL (12.0-16.0); Lymphocyte % 28.3 %; Mean Corpuscular HGB Conc 34 g/dL (31-36); Mean Corpuscular Hemoglobin 26 pg (27-31); Mean Corpuscular Volume 78 fL (80-97); Mean Platelet Volume 8.1 fL (7.4-10.4); Platelet Count 270 10^3/uL (150-450); Red Blood Count 4.79 10^6 /uL (3.70-4.87); Red Cell Distribution Width 19 % (10-15); White Blood Count 12.3 10^3/uL (3.5-10.8)
[2019-07-08 20:36] LABS: Albumin 3.9 g/dL (3.2-5.2); Albumin/Globulin Ratio 1.5 (1-3); BUN/Creatinine Ratio 16.4 (8-20); Calcium 8.9 mg/dL (8.6-10.3); EGFR African American 160.4 (>60); EGFR Non-African American 132.6 (>60); Globulin 2.6 g/dL (2-4); Potassium 3.6 mmol/L (3.5-5.0); Total Bilirubin 0.2 mg/dL (0.2-1.0); Total Protein 6.5 g/dL (6.4-8.9)
--- OUTSIDE RECORDS SUMMARY | 2019-07-08 20:47 | XMS REPORT | Continuity of Care Document ---
:1990 External Reference #:[id number] Author Name Viktoria Hopkins NP (transmitted by agent of provider Tita Wakefield) Address [address] [place] [address] Problems Active Problems Provider Date Obstructive sleep apnea syndrome Katie Mendez DNP, RN, CORPORATE EXECUTIVE CHEF-BC Onset: Body mass index 40+ - severely Katie Mendez DNP, RN, CORPORATE EXECUTIVE CHEF-BC Onset: 2018 obese Iron deficiency anemia Abhijeet Bass MD Onset: 09/04/2014 Note: Hg 10.6 MCV March; lowest Hg 2011 to fall 2018 was Hg 12.0 / MCV Aug Hypothyroidism Abhiejet Bass MD Onset: 05/12/2011 Vitamin B12 deficiency (non anaemic) Abhijeet Bass MD Onset: 04/02/2019 Note: 365 4 wks post bypass - 145 5 months post GIB; Social History Type Date Description Comments Sex Unknown Tobacco Use Start: Unknown Never Smoked Cigarettes Smoking Status Reviewed: 07/01/19 Never Smoked Cigarettes ETOH Use Denies alcohol [...] Medications SIG Qnty Indications Ordering Date Provider Colace 1 tab every 12 90caps Viktoria Hopkins, 06/13/2019 100mg Capsules hours as 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 Cyanocobalamin 1 ml Im every 2 30ml Abhijeet Ward 05/28/2019 weeks for a MD Kali 1000mcg/ML Solution sequence of 3 Opurity 2 tablets daily Abhijeet Ward 05/12/2019 Tablets MD Kali Levothyroxine Sodium take 3 tablets (300 Unknown 11/01/2010 mcg) once daily 100mcg Tablets Albuterol Sulfate 1 vial via Unknown nebulizer 4 times (2.5mg/3ML) 0.083% daily as needed Nebulizer Ferrous Gluconate [place], MD Fabián 324(38Fe) mg Tablets Calcium 500 + D 1 by mouth every Unknown day - no D [id number] Tablets Medications Administered in Office Medication SIG Qnty Indications Ordering Provider Date Vitamin B12 Pt Provided Viktoria Hopkins NP 07/01/2019 Vac Injection B-12 Injection Nurse Visit Gastroenterology 06/13/2019 Injection Vitamin B12 Pt Provided Nurse Visit Gastroenterology 05/29/2019 Vac Injection Immunizations Description No Information Available Vital Signs Date Vital Result Comment 07/01/2019 1:42pm Height 67 inches 5'7" Weight 241.00 lb Heart Rate 80 /min BP Systolic 120 mmHg BP Diastolic 67 mmHg O2 % BldC Oximetry 99 % BMI (Body Mass Index) 37.7 kg/m2 05/12/2019 3:51pm Height 67 inches 5'7" Weight 250.00 lb Heart Rate 75 /min BP Systolic 117 mmHg BP Diastolic 78 mmHg O2 % BldC Oximetry 100 % BMI (Body Mass Index) 39.2 kg/m2 Results Test Acquired Date Facility Test Result H/L Range Note CBC Auto 05/28/2019 [facility] White Blood 10.0 10^3/uL Normal 3.5-10.8 [address] [place] [address] [phone] Red Blood Count 4.64 10^6/uL Normal 3.70-4.87 [...] Red Blood Cells % 0.0 Comp Metabolic 05/28/2019 [facility] Sodium 137 mmol/L Normal 135-145 Panel [address] [place] [address] [phone] Potassium 3.6 mmol/L Normal 3.5-5.0 Chloride 108 mmol/L Normal 101-111 Co2 Carbon Dioxide 23 mmol/L Normal 22-32 Anion Gap 6 mmol/L Normal 2-11 Calcium 9.1 mg/dL Normal 8.6-10.3 Albumin 4.1 g/dL Normal 3.2-5.2 Total Bilirubin 0.30 mg/dL Normal 0.2-1.0 Glucose 70 mg/dL Normal 70-100 Blood Urea Nitrogen 10 mg/dL Normal 6-24 Creatinine 0.54 mg/dL Normal 0.51-0.95 BUN/Creatinine Ratio 18.5 Normal 8-20 Total Protein 6.6 g/dL Normal 6.4-8.9 Globulin 2.5 g/dL Normal 2-4 Albumin/Globulin Ratio 1.6 Normal 1-3 Alkaline Phosphatase 58 U/L Normal 34-104 Alt 15 U/L Normal 7-52 Ast 14 U/L Normal 13-39 Egfr Non- 135.4 >60 Egfr 163.9 >60 3 Laboratory test 05/28/2019 [facility] Lipase 16 U/L Normal 11.0-82.0 [address] [place] [address] [phone] Iron & Iron 05/28/2019 [facility] Total Iron 416 Normal 250- [address] Binding g/[place] [address] Capacity [phone] Transferrin 297 mg/dL Normal 203-362 Iron < 20 g/dL Low 50-212 Unsaturated Iron Binding < 401 g/dL % Iron Saturation 5 % Low 15-55 Laboratory test 05/28/2019 [facility] Vitamin B12 209 pg/mL Normal 180-[address] [place] [address] [phone] CBC Auto Diff 05/12/2019 [facility] White Blood 11.2 High 3.5- 10.[address] Count 10^3/[place] [address] [phone] Red Blood Count 4.95 10^6/uL High 3.70-4.87 Hemoglobin 11.6 g/dL Low 12.0-16.0 Hematocrit 37 % Normal 35-47 Mean Corpuscular Volume 74 fL Low 80-97 6 Mean Corpuscular Hemoglobin 24 pg Low 27-31 [...] Blood Cells % 0.0 Comp Metabolic 05/12/2019 [facility] Sodium 138 mmol/L Normal 135-145 Panel [address] [place] [address] [phone] Potassium 4.1 mmol/L Normal 3.5-5.0 Chloride 106 [...] Egfr Non- 111.3 >60 Egfr 134.7 >60 7 Laboratory test 05/12/2019 [facility] C Reactive 2.56 mg/L Normal <8.[address] Protein [place], [place] [address] [phone] Ferritin 5.1 ng/mL Low 11-307 Iron & Iron 05/12/2019 [facility] Total Iron 414 g/dL Normal 250-[address] [place] [address] Capacity [phone] Transferrin 296 mg/dL Normal 203-362 Iron < 20 g/dL Low 50-212 Unsaturated Iron Binding < 399 g/dL % Iron Saturation 5 % Low 15-55 Laboratory test 05/12/2019 [facility] Vitamin B12 188 pg/mL Normal 180-914 [address] [place] [address] [phone] 1 [id number] 2 Consistent with Previous Results Reported on 05/12/19 3 Because ethnic data is not always readily [...] 15-29 5 Kidney failure <15 (or dialysis) 4 [id number] 5 Normal Range 180 to 914 Indeterminate Range 145 to 180 Deficient Range <145 6 Consistent with Previous Results Reported on 04/02/2019 7 Because ethnic data is not always [...] 5 Kidney failure <15 (or dialysis) 8 Normal Range 180 to 914 Indeterminate Range 145 to 180 Deficient Range <145 Procedures Description No Information Available Medical Devices Description No Information Available Encounters Type Date Location Provider Dx Diagnosis Office [facility] Gastroenterology Nurse Visit D64.9 Anemia, Visit 9 2:30p Gastroenterology unspecified Office [facility] Gastroenterology Nurse Visit D64.9 Anemia, Visit 9 2:30p Gastroenterology unspecified Office [facility] Gastroenterology Abhijeet Bass MD K29.71 Gastritis, Visit 9 3:45p unspecified, with bleeding R10.13 Epigastric pain D64.9 Anemia, unspecified Z68.43 Body mass index (BMI) 50.0-59.9, adult Assessments Date Code Description Provider 06/13/2019 D64.9 Anemia, unspecified Nurse Visit Gastroenterology 05/29/2019 D64.9 Anemia, unspecified Nurse Visit Gastroenterology 05/12/2019 K29.71 Gastritis, unspecified, with bleeding Abhijeet Bass MD 05/12/2019 R10.13 Epigastric pain Abhijeet Bass MD 05/12/2019 D64.9 Anemia, unspecified Abhijeet Bass MD 05/12/2019 Z68.43 Body mass index (BMI) 50-59.9, adult Abhijeet Bass MD Plan of Treatment Future Appointment(s):07/29/2019 1:30 pm - Nurse Visit Gastroenterology at [facility] Gastroenterology Functional Status Description No Information Available Mental Status Description No Information Available Referrals Description No Information Available
[2019-07-08 21:40] VITALS: BP 134/90
== END 2019-07-08 21:30 | disposition home or self-care (01) ==
LOC: ED 19:47
DX: O20.9 Hemorrhage in early pregnancy, unspecified (principal); O16.1 Unspecified maternal hypertension, first trimester; Z3A.11 11 weeks gestation of pregnancy; E03.9 Hypothyroidism, unspecified; Z88.8 Allergy status to other drugs, medicaments and biological substances
CPT/HCPCS: 36415; 76801; 80053; 84702; 85025; 86850; 86900; 86901; 99282

== ENCOUNTER 2019-08-20 17:13 | Emergency (ER) | payer OTHER ==
--- OUTSIDE RECORDS SUMMARY | 2019-08-20 17:20 | XMS REPORT | Continuity of Care Document ---
:1990 External Reference #:[id number] Author Name Nurse Visit Gastroenterology (transmitted by agent of provider Tita Wakefield) Address [address] [facility] [place] [address] Problems Active Problems Provider Date Obstructive sleep apnea syndrome Katie Mendez DNP, RN, MOLDED GRID AND PARTS INSPECTOR-BC Onset: Body mass index 40+ - severely Katie Mendez DNP, RN, MOLDED GRID AND PARTS INSPECTOR-BC Onset: 2018 obese Iron deficiency anemia [...] Unknown Never Smoked Cigarettes Smoking Status Reviewed: 07/16/19 Never Smoked Cigarettes ETOH Use Denies alcohol [...] Medications SIG Qnty Indications Ordering Date Provider 3ML Luer Lock Safety Use 1 syringe every 10units Abhijeet Ward 07/09/2019 Syringes/3ML/25G X 1" 2 weeks to inject MD Kali vitamin B12 25G X 1" 3 ML Misc Colace 1 tab every 12 hours 90caps Viktoria Hopkins, 06/13/2019 100mg Capsules as 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 for 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 Cyanocobalamin 1 milliliters 30ml Abhijeet Ward 05/28/2019 intramuscular every MD Kali 1000mcg/ML Solution 2 weeks Opurity 2 tablets daily Abhijeet Ward 05/12/2019 Tablets MD Kali Levothyroxine Sodium take 3 tablets (300 Unknown 11/01/2010 mcg) once daily 100mcg Tablets Albuterol Sulfate 1 vial via nebulizer Unknown 4 times daily as (2.5mg/3ML) 0.083% needed Nebulizer Ferrous Gluconate [place], MD Fabián 324(38Fe) mg Tablets Calcium 500 + D 1 by mouth every day Unknown - no D [id number] Tablets Medications Administered in Office Medication SIG [...] Result H/L Range Note CBC Auto 05/28/2019 [facility] White Blood 10.0 10^3/uL Normal 3.5-10.8 [address] [place] [address] [phone] Red Blood Count 4.64 10^6/uL Normal 3.70-4.87 [...] Blood Cells % 0.0 Comp Metabolic 05/28/2019 [facility] Sodium 137 mmol/L Normal 135-[address] [place] [address] [phone] Potassium 3.6 mmol/L Normal 3.5-5.0 Chloride 108 [...] Egfr 163.9 >60 3 Laboratory test 05/28/2019 [facility] Lipase 16 U/L Normal 11.0-82.0 [address] [place] [address] [phone] Iron & Iron 05/28/2019 [facility] Total Iron 416 Normal 250- [address] Binding g/[place] [address] Capacity [phone] Transferrin 297 mg/dL Normal 203-362 Iron < 20 g/dL Low 50-212 Unsaturated Iron Binding < 401 g/dL % Iron Saturation 5 % Low 15-55 Laboratory test 05/28/2019 [facility] Vitamin B12 209 pg/mL Normal 180-[address] [place] [address] [phone] CBC Auto Diff 05/12/2019 [facility] White Blood 11.2 High 3.5- 10.[address] Count 10^3/[place] [address] [phone] Red Blood Count 4.95 10^6/uL High 3.70-4.87 [...] Blood Cells % 0.0 Comp Metabolic 05/12/2019 [facility] Sodium 138 mmol/L Normal 135-[address] [place] [address] [phone] Potassium 4.1 mmol/L Normal 3.5-5.0 Chloride 106 [...] Egfr 134.7 >60 7 Laboratory test 05/12/2019 [facility] C Reactive 2.56 mg/L Normal <8.[address] [place] [address] [phone] Ferritin 5.1 ng/mL Low 11-307 Iron & Iron 05/12/2019 [facility] Total Iron 414 g/dL Normal 250-[address] [place] [address] Capacity [phone] Transferrin 296 mg/dL Normal 203-362 Iron < 20 g/dL Low 50-212 Unsaturated Iron Binding < 399 g/dL % Iron Saturation 5 % Low 15-55 Laboratory test 05/12/2019 [facility] Vitamin B12 188 pg/mL Normal 180-914 [address] [place] [address] [phone] [id number] 2 Consistent with Previous Results Reported on [...] 5 Kidney failure <15 (or dialysis) 4 [id number] 5 Normal Range 180 to 914 Indeterminate [...] Date Location Provider Dx Diagnosis Office Visit 07/01/2019 [facility] Gastroenterology Viktoria Hopkins NP D51.8 Other vitamin B12 2:00p deficiency anemias O26.811 related exhaustion and fatigue, first trimester Office 06/13/2019 [facility] Nurse Visit D64.9 Anemia, Visit 2:30p Gastroenterology Gastroenterology unspecified Office 06/05/2019 [facility] Julianna Menendez MD R10.33 Periumbilical Visit 7:00a Of [facility] pain Z98.84 Bariatric surgery status O26.91 related conditions, unspecified, first trimester Office 05/29/2019 [facility] Gastroenterology Nurse Visit D64.9 Anemia, Visit 2:30p Gastroenterology unspecified Office 05/12/2019 [facility] Gastroenterology Abhijeet Bass MD K29.71 Gastritis, Visit 3:45p unspecified, with bleeding R10.13 Epigastric pain D64.9 Anemia, unspecified Z68.43 Body mass index (BMI) 50.0-59.9, adult Assessments Date Code Description Provider 07/01/2019 D51.8 Other vitamin B12 deficiency anemias Viktoria Hopkins NP 07/01/2019 O26.811 related exhaustion and Viktoria Hopkins NP fatigue, first trimester 06/13/2019 D64.9 Anemia, unspecified Nurse Visit Gastroenterology 06/05/2019 R10.33 Periumbilical pain Julianna Menendez MD 06/05/2019 Z98.84 Bariatric surgery status Julianna Menendez MD 06/05/2019 O26.91 related conditions, Julianna Menendez MD unspecified, first trimester 05/29/2019 D64.9 Anemia, unspecified Nurse Visit Gastroenterology 05/12/2019 K29.71 Gastritis, unspecified, with bleeding Abhijeet Bass MD 05/12/2019 R10.13 Epigastric pain Abhijeet Bass MD 05/12/2019 D64.9 Anemia, unspecified Abhijeet Bass MD 05/12/2019 Z68.43 Body mass index (BMI) 50-59.9, adult Abhijeet Bass MD Plan of Treatment Future Appointment(s):07/29/2019 1:30 pm - Nurse Visit Gastroenterology at [facility] Otlttltrgkkfnzun50/19/2019 - Viktoria Hopkins NPD51.8 Other vitamin B12 deficiency suursdeN18.811 related exhaustion and fatigue, first trimester Functional Status Description No Information Available Mental Status Description No Information Available Referrals Description No Information Available
[2019-08-20 17:32] VITALS: BP 121/77
--- NOTE | 2019-08-27 18:52 | UC ---
Abdominal Pain Female HPI - HPI Summary HPI Summary: 29-year-old female who is 17 weeks gestation. She states when she bends or moves she feels some pain just above the umbilicus and feels like she might have a hernia. She denies any recent fever or chills. The is progressing normally. - History of Current Complaint Chief Complaint: UCAbdominalPain Stated Complaint: ABDOMINAL PAIN Time Seen by Provider: 08/20/19 18:22 Hx Obtained From: Patient Hx Last Menstrual Period: beginning April ?: Yes - 17 weeks gestation Onset/Duration: Gradual Onset, Lasting Days Timing: Intermittent Episodes Lasting: Severity Initially: Mild Severity Currently: Mild Pain Intensity: 1 Pain Scale Used: 0-10 Numeric Location: Other - Just around the umbilicus and above it. Character: Unable to describe Aggravating Factor(s): Movement - Mostly bending. Alleviating Factor(s): Other: - Rest. Associated Signs and Symptoms: Positive: Negative Allergies/Adverse Reactions: Allergies Allergy/AdvReac Type Severity Reaction Status Date / Time ibuprofen Allergy GI Upset Verified 08/20/19 17:32 Home Medications: Home Medications Cyanocobalamin INJ * [Vitamin B12 INJ *] 1,000 mcg IM SEE INSTRUCTIONS 08/20/19 [History Confirmed 08/20/19] PMH/Surg Hx/FS Hx/Imm Hx Previously Healthy: Yes - Surgical History Surgical History: Yes Surgery Procedure, Year, and Place: right wrist. appendectomy. gall bladder. . 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 - Family History Known Family History: Positive: Cardiac Disease, Hypertension, Diabetes - Social History Alcohol Use: None Substance Use Type: None Smoking Status (MU): Never Smoked Tobacco Have You Smoked in the Last Year: No - Immunization History Most Recent Influenza Vaccination: 2014 Most Recent Tetanus Shot: 06/03/14 Most Recent Pneumonia Vaccination: na Review of Systems All Other Systems Reviewed And Are Negative: Yes Gastrointestinal: Positive: Abdominal Pain - Patient states she has pain just above the umbilicus and in that area if she is bending or stretching. She is concerned she may have a hernia. Is Patient Immunocompromised?: No Physical Exam Triage Information Reviewed: Yes Appearance: Well-Appearing, No Pain Distress, Well-Nourished Vital Signs: Initial Vital Signs Temp 98.0 F 08/20/19 17:27 Pulse 66 01/08/20 17:27 Resp 16 08/20/19 17:27 BP 121/77 08/20/19 17:27 Pulse Ox 100 08/20/19 17:27 Vital Signs Reviewed: Yes Eyes: Positive: Conjunctiva Clear ENT: Positive: Hearing grossly normal, Pharynx normal, TMs normal, Uvula midline Neck: Positive: Supple, Nontender, No Lymphadenopathy Respiratory: Positive: Lungs clear, Normal breath sounds, No respiratory distress, No accessory muscle use Cardiovascular: Positive: RRR, No Murmur, Pulses Normal, Brisk Capillary Refill Abdomen Description: Positive: Nontender, No Organomegaly, Soft, Other: - No evidence of hernia palpated or with patient doing a partial sit up or moving.. Negative: CVA Tenderness (R), CVA Tenderness (L), Distended, Guarding, Hernia @ , Hepatomegaly, Splenomegaly Bowel Sounds: Positive: Present Musculoskeletal Exam: Normal Neurological Exam: Normal Psychological Exam: Normal Skin Exam: Normal Abd Pain Female Course/Dx - Course Course Of Treatment: heart tones were auscultated in the 150s. I don't feel any hernia. Patient has appointment tomorrow with her primary care provider and she can be rechecked then as well. She's had no abdominal cramping, no abnormal vaginal discharge or bleeding and the has been progressing normally according to the patient. - Differential Dx/Diagnosis Provider Diagnosis: Abdominal pain Discharge ED - Sign-Out/Discharge Documenting (check all that apply): Patient Departure All imaging exams completed and their final reports reviewed: No Studies - Discharge Plan Condition: Good Disposition: HOME Patient Education Materials: Muscle Strain (DC) Referrals: Fabián Melton MD [Primary Care Provider] - Additional Instructions: Avoid movements that cause pain. Keep your appointment tomorrow with your OB/ [facility] provider. If any symptoms worsen during the night and you start running a fever or having worse pain and then you're to go to the emergency room for further treatment. - Billing Disposition and Condition Condition: GOOD Disposition: Home
== END 2019-08-20 18:53 | disposition home or self-care (01) ==
LOC: UCEAST 17:13
DX: O26.892 Other specified pregnancy related conditions, second trimester (principal); R10.33 Periumbilical pain; Z3A.17 17 weeks gestation of pregnancy; Z90.89 Acquired absence of other organs; Z90.49 Acquired absence of other specified parts of digestive tract; Z98.84 Bariatric surgery status; Z88.6 Allergy status to analgesic agent
CPT/HCPCS: 81003; 99211; G0463

== ENCOUNTER 2019-09-13 18:15 | Emergency (ER) | payer OTHER ==
[2019-09-13 18:47] VITALS: BP 125/80
--- NOTE | 2019-09-13 19:14 | UC ---
FLU HPI - HPI Summary HPI Summary: 3 DAYS OF COUGH, CONGESTION, SORE THROAT, FATIGUE, BODY ACHES. NO FEVER OR HEADACHE. DAUGHTER WAS DIAGNOSED WITH FLU AND 6 DAYS AGO. - History of Current Complaint Chief Complaint: UCRespiratory Stated Complaint: COUGH Time Seen by Provider: 09/13/19 18:53 Hx Obtained From: Patient Hx Last Menstrual Period: 04/13/20 Onset/Duration: Gradual Onset, Lasting Days, Still Present Severity Currently: Moderate Severity Initially: Moderate Pain Intensity: 6 Pain Scale Used: 0-10 Numeric Associated Signs & Symptoms: Positive: Myalgia, Cough, Sore Throat, Nasal Congestion. Negative: Fever, Headache - Allergy/Home Medications Allergies/Adverse Reactions: Allergies Allergy/AdvReac Type Severity Reaction Status Date / Time ibuprofen Allergy GI Upset Verified 09/13/19 18:47 PMH/Surg Hx/FS Hx/Imm Hx Previously Healthy: Yes - Surgical History Surgical History: Yes Surgery Procedure, Year, and Place: right wrist. appendectomy. gall bladder. . 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 - Family History Known Family History: Positive: Cardiac Disease, Hypertension, Diabetes - Social History Alcohol Use: None Substance Use Type: None Smoking Status (MU): Never Smoked Tobacco Have You Smoked in the Last Year: No - Immunization History Most Recent Influenza Vaccination: 2014 Most Recent Tetanus Shot: 06/03/14 Most Recent Pneumonia Vaccination: na Review of Systems All Other Systems Reviewed And Are Negative: Yes Constitutional: Positive: Chills, Fatigue ENT: Positive: Sore Throat, Nasal Discharge Respiratory: Positive: Cough Cardiovascular: Positive: Negative Gastrointestinal: Positive: Negative Musculoskeletal: Positive: Myalgia Neurological: Negative: Headache Physical Exam Triage Information Reviewed: Yes Appearance: No Pain Distress, Well-Nourished, Ill-Appearing - FATIGUED AND CONGESTED Vital Signs: Initial Vital Signs Temp 98.1 F 09/13/19 18:43 Pulse 60 09/13/19 18:43 Resp 16 09/13/19 18:43 BP 125/80 09/13/19 18:43 Pulse Ox 100 09/13/19 18:43 Laboratory Tests 09/13/19 19:12 Influenza B (Rapid) Positive A Vital Signs Reviewed: Yes Eyes: Positive: Conjunctiva Clear ENT: Positive: Hearing grossly normal, Pharynx normal, TMs normal Neck: Positive: Supple, Nontender, No Lymphadenopathy Respiratory Exam: Normal Cardiovascular Exam: Normal Abdomen Description: Positive: Soft Musculoskeletal: Positive: No Edema Neurological: Positive: Alert Psychological: Positive: Age Appropriate Behavior Skin: Negative: Rashes Flu Course/Dx - Course Course Of Treatment: SWAB POSITIVE FOR INFLUENZA B. PATIENT DECLINED TAMIFLU TODAY. DISCUSSED WITH HER THAT ON DAY 3 OF ILLNESS ESPECIALLY IN LIGHT OF HER TAMIFLU IS STILL INDICATED. SHE FEELS VERY STRONGLY THAT SHE DOES NOT WANT TO TAKE THIS MEDICATION AT THIS TIME. ADVISED TO HAVE A LOW THRESHOLD TO SEEK FOLLOW-UP IF SHE IS NOT IMPROVING EXPECTED OVER THE NEXT FEW DAYS. TAKE TYLENOL FOR DISCOMFORT. STAY WELL HYDRATED. ADVISED TO CALL OB AND NOTIFY THEM OF HER DIAGNOSIS AND TO KEEP HER NEXT APPOINTMENT SCHEDULED. - Differential Dx/Diagnosis Provider Diagnosis: Influenza B Discharge ED - Sign-Out/Discharge Documenting (check all that apply): Patient Departure All imaging exams completed and their final reports reviewed: No Studies - Discharge Plan Condition: Stable Disposition: HOME Patient Education Materials: Influenza (ED) Referrals: Fabián Melton MD [Primary Care Provider] - If Needed Additional Instructions: SWAB POSITIVE FOR INFLUENZA B. TYLENOL NEEDED FOR FEVER, BODY ACHES. STAY WELL HYDRATED AND RESTED. SEEK FOLLOW-UP IF YOU ARE NOT IMPROVING EXPECTED. YOU HAVE DECLINED TAMIFLU TODAY. NOTIFY YOUR OB OF YOUR DIAGNOSIS. - Billing Disposition and Condition Condition: STABLE Disposition: Home
[2019-09-13 19:15] LABS: Influenza B Molecular POSITIVE (Negative)
== END 2019-09-13 19:20 | disposition home or self-care (01) ==
LOC: UCEAST 18:15
DX: J10.1 Influenza due to other identified influenza virus with other respiratory manifestations (principal); Z88.6 Allergy status to analgesic agent
CPT/HCPCS: 99211; G0463

== ENCOUNTER 2020-01-15 05:55 | Inpatient (IN) ==
[2020-01-15] MEDS ORDERED: Famotidine IV 10 MG/ML 2 ml VIAL (20 mg) IV ONE (06:00)
[2020-01-15] MEDS ORDERED: ceFAZolin 2 GM PREMIX in ORs 2 GM/50 ML BAG IVPB ONE (07:00)
[2020-01-15] MEDS ORDERED: fentaNYL 100 mcg/2 ml 50 MCG/ML VIAL ONE (07:20)
[2020-01-15] MEDS ORDERED: Ketamine HCL 50 mg/ml 10 ml VIAL (500 MG) ONE (07:20)
[2020-01-15] MEDS ORDERED: Succinylcholine 200 mg VIAL 20 mg/ml 10 ml VIAL (200 mg) ONE (07:21)
[2020-01-15] MEDS ORDERED: Propofol 10 MG/ML 20 ML BTL ONE (07:21)
[2020-01-15] MEDS ORDERED: Morphine PF AMP (0.5MG/ML) 5 MG/10 ML AMP ONE (07:21)
[2020-01-15] MEDS ORDERED: Midazolam 5 mg/5 ml VIAL 1 mg/ml 5 ml VIAL (5 mg) ONE (07:21)
[2020-01-15] MEDS: Lactated Ringers 1000 ml BAG 1,000 ML IV SCH ×2 (07:22→10:00)
[2020-01-15 07:32] LABS: Urine Benzodiazepine Screen None Detected (None Detect); Urine Opiates Screen None Detected (None Detect)
[2020-01-15] MEDS ORDERED: EPHEDrine (Pressors) 50 MG/ML VIAL ONE (07:36)
[2020-01-15] MEDS ORDERED: diPHENhydraMINE IV 50 MG/ML 1 ml VIAL (BENADRYL) IV PRN (08:21)
[2020-01-15] MEDS ORDERED: Ondansetron 4 mg VIAL 2 MG/ML 2 ml VIAL IV PRN (08:21)
[2020-01-15] MEDS ORDERED: Prochlorperazine 5 mg/ml 2 ml VIAL (10 mg) IV PRN (08:21)
[2020-01-15] MEDS ORDERED: DiMENhydriNATE IV 50 mg/ml 1 ml VIAL IV PUSH PRN (08:21)
[2020-01-15] MEDS ORDERED: Naloxone 4 mg VIAL (10 ml) 2 MG in NS 0.9% 250 ml 250 ML IV PRN (08:21)
[2020-01-15] MEDS ORDERED: Naloxone 0.4 mg VIAL 0.4 mg/ml 1 ml VIAL IV PRN ×2 (08:21→08:25)
[2020-01-15] MEDS ORDERED: fentaNYL 100 mcg/2 ml 50 MCG/ML VIAL IV PRN (08:25)
[2020-01-15] MEDS ORDERED: Phenylephrine IV 10 MG/ML 1 ml VIAL ONE (08:44)
[2020-01-15] MEDS ORDERED: Prochlorperazine 5 mg/ml 2 ml VIAL (10 mg) ONE (08:44)
[2020-01-15] MEDS ORDERED: Oxytocin 10 UNITS/ML 1 ML VIAL ONE (08:44)
[2020-01-15] MEDS ORDERED: Dexamethasone IV 4 MG/ML VIAL 1 ml VIAL ONE (08:44)
[2020-01-15] MEDS ORDERED: Ondansetron 4 mg VIAL 2 MG/ML 2 ml VIAL ONE (08:44)
[2020-01-15] MEDS ORDERED: Oxytocin in LR 0 UNITS/0 ML BAG IVPB ONE (09:55)
[2020-01-15] MEDS: oxyCODONE/Acetamin 5/325 mg TAB PO PRN ×3 (12:03→23:39)
[2020-01-15] MEDS ORDERED: Dibucaine 1% OINT 28.35 GM TUBE PR PRN (13:37)
[2020-01-15] MEDS ORDERED: Glycerin ADULT 2.4 gm SUPP PR PRN (13:37)
[2020-01-15] MEDS ORDERED: Witch Hazel PAD JAR TOPICAL PRN (13:37)
[2020-01-15] MEDS ORDERED: Lactated Ringers 1000 ml BAG 1,000 ML IV SCH (14:00)
[2020-01-15] MEDS ORDERED: Measles, Mumps,Rubella VACC 0.5 ML/VIAL SUBCUT ONE (15:03)
[2020-01-16] MEDS: oxyCODONE/Acetamin 5/325 mg TAB PO PRN ×2 (07:28→10:49)
[2020-01-16 08:22] LABS: ABS Eosinophils 0.1 10^3/ul (0-0.6); ABS Lymphocytes 2.9 10^3/ul (1.0-4.8); ABS Monocytes 0.9 10^3/ul (0-0.8); Eosinophil % 0.7 %; Hematocrit 30 % (35-47); Lymphocyte % 28.3 %; Mean Corpuscular HGB Conc 33 g/dL (31-36); Mean Corpuscular Hemoglobin 26 pg (27-31); Mean Corpuscular Volume 79 fL (80-97); Mean Platelet Volume 8.5 fL (7.4-10.4); Platelet Count 205 10^3/uL (150-450); Red Blood Count 3.81 10^6 /uL (3.70-4.87); Red Cell Distribution Width 14 % (10-15); White Blood Count 10.4 10^3/uL (3.5-10.8)
[2020-01-17 07:47] VITALS: BP 132/61
[2020-01-17] MEDS: oxyCODONE/Acetamin 5/325 mg TAB PO PRN ×2 (08:01→12:24)
[2020-01-18] MEDS ORDERED: Scopolamine PATCH Remove NOTE PATCH OFF ONE (06:00)
== END 2020-01-17 13:40 | disposition home or self-care (01) | DRG 540 ==
LOC: MCHOB 05:55
PROVIDERS: ADMIT Obstetrics & Gynecology; ATTEND Obstetrics & Gynecology